=== PATIENT | female | born 1940 | race Caucasian/White ===

== ENCOUNTER → 2023-06-22 10:46 | Outpatient (CLI) | payer MEDICARE, SELFPAY ==
--- NOTE | ~2023-06-22 | MR_ITS ---
MRI of the right knee Clinical history: Meniscus tear Technique: Coronal proton density and proton density-weighted images, sagittal proton-density and T2 fat-sat images, and axial proton-density fat-saturated images were acquired. Findings: Anterior and posterior cruciate ligaments are intact. Medial collateral ligament and the la teral collateral ligament complex are intact. Popliteus tendon is intact. There is probable mild complex tearing of the body segment of the medial meniscus. There is complex t earing of the anterior horn and body of the lateral meniscus. There is diffuse grade IV chondromalacia of the lateral compartment. There is extensive high-grade ch ondral malacia the medial femoral condyle and medial aspect of the medial tibial plateau. There is gr evi IV chondromalacia the patellar apex. Tricompartmental osteophytes are present. There is extensive amorphous marrow edema in the lateral femoral condyle and lateral tibial plateau, presumably reactiv e. Extensor mechanism is intact. Small joint effusion is present. There is moderate to large complex Juaquin er's cyst. Impression: Complex tearing of the anterior horn and body lateral meniscus. Probable mildly complex tearing of the body segment of the medial meniscus. Moderate to advanced tricompartmental osteoarthritis, as detailed above. Reactive marrow edema in the lateral femoral condyle and lateral tibial plateau region, presumably re lated to underlying degenerative joint disease. No subchondral insufficiency fracture evident. Small joint effusion with moderate to large complex/septated Christopher's cyst. Reviewed, dictated and finalized at [facility]. Impression: Complex tearing of the anterior horn and body lateral meniscus. Probable mildly complex tearing of the body segment of the medial meniscus. Moderate to advanced tricompartmental osteoarthritis, as detailed above. Reactive marrow edema in the lateral femoral condyle and lateral tibial plateau region, presumably related to underlying degenerative joint disease. No subcho ndral insufficiency fracture evident. Small joint effusion with moderate to large complex/septated Christopher's cyst.
== END ==
PROVIDERS: PCP Family Medicine Sports Medicine; Visit Provider Family Medicine Sports Medicine
DX: S83.271A Complex tear of lateral meniscus, current injury, right knee, initial encounter (principal); X58.XXXA Exposure to other specified factors, initial encounter; M17.11 Unilateral primary osteoarthritis, right knee; M25.461 Effusion, right knee
CPT/HCPCS: 73721

== ENCOUNTER 2023-10-03 01:00 | Day surgery (SDC) | payer MEDICARE, SELFPAY ==
[2023-09-21 11:43] VITALS: BMI 24.5
--- NOTE | 2023-09-29 09:22 | SUR.PREOP ---
Patient called regarding upcoming procedure. Message left on patient's voicemail regarding appointment times.
[2023-10-03 09:55] VITALS: BP 100/76; PULSE 82; RESP 18; TEMP 36.6; O2SAT 100; BMI 24.8
[2023-10-03] MEDS: LACTATED RINGERS 1,000 ML 150 ML IV CONT (10:28)
--- NOTE | 2023-10-03 11:21 | PM.HPGS ---
History of Present Illness History of Present Illness Consent: Risks, benefits, and alternatives have been discussed and questions answered. Patient agrees to proceed with procedure. Chief complaint: dysphagia Narrative: Kellee Covarrubias is a 83 year old female with sensation of food sometimes having hard time to go down, never had egd Review of Systems Constitutional: Constitutional: Denies headache(s) and Denies weakness Eyes: Eyes: Denies blurry vision ENT: Reports Normal hearing present, Denies headache(s) and Denies neck pain Cardiovascular: Cardiovascular: Denies chest pain and Denies dyspnea Respiratory: Respiratory: Denies dyspnea Gastrointestinal: Gastrointestinal: Reports no additional gastrointestinal complaints Genitourinary: Genitourinary: Denies dysuria Musculoskeletal: Musculoskeletal: Denies neck pain Integumentary/Breasts: Skin/Breast: Denies dry skin Neurologic: Reports Normal hearing present, Denies headache(s) and Denies weakness Psychiatric: Psychiatric: Denies anxiety Endocrine: Endocrine: Denies change in body appearance Hematologic/Lymphatic: Hematologic/Lymphatic: Denies easy bleeding Allergic/Immunologic: Allergic/Immunologic: Denies urticaria PMFSH Past Medical History Medical History (Updated 10/03/23 @ 11:21 by Deangelo Christianson MD) Arthritis Colonoscopy planned 07/26/2019 09/03/2019- Removed polyp Dysphagia GERD (gastroesophageal reflux disease) Osteoporosis Family History Family History Father Hypertension Heart disease Mother Alzheimer disease Sibling Breast cancer Grandparent Hypertension Social History Social History Smoking status: Never smoker Alcohol intake: never Substance use: never Substance use type: does not use Living arrangements: with family Spiritual care concerns: No Meds Home Medications and Allergies Home Medications Medication Instructions Recorded Confirmed Type calcium citrate 315 mg 1 tablet PO BID 11/21/22 09/21/23 History calcium-vitamin D3 6.25 mcg (250 unit) tablet (Citracal + Vitamin D Maximum) cholecalciferol (vitamin D3) 25 25 mcg PO DAILY 11/21/22 09/21/23 History mcg (1,000 unit) capsule iwapatymsrzz-poeoizwa-bbfnhx tablet 1 tablet PO DAILY 11/21/22 09/21/23 History ginkgo biloba 40 mg tablet 40 mg PO DAILY 09/21/23 09/21/23 History Allergies Allergy/AdvReac Type Severity Reaction Status Date / Time Sulfa (Sulfonamide Allergy Hives Verified 09/21/23 11:43 Antibiotics) Vital Signs Vital Signs - 24 hr 10/03/23 09:55 Temperature 97.9 F Pulse Rate 82 Respiratory Rate 18 Blood Pressure 100/76 Pulse Oximetry 100 Oxygen Delivery Room Air Exam Const: General: comfortable and no acute distress HENMT: Face/Nose/Sinus: Normal nares present Eyes: General: appearance normal, both eyes and all related structures Neck: Neck: no JVD Resp: Auscultation: clear to auscultation bilaterally Cardio: Rate: regular rate Rhythm: regular rhythm GI: Inspection: non-distended GI Palp: Yes Soft to palpation Skin: General skin exam: normal color Neuro: General: gait normal Speech: normal speech Extrem: General: normal to inspection Psych: Mental Status: mental status grossly normal Assessment and Plan Assessment and plan (1) Dysphagia: Code(s): R13.10 - Dysphagia, unspecified Status: Acute Assessment and Plan: egd to assess
[2023-10-03 11:40] VITALS: BP 112/58; PULSE 75; RESP 18; O2SAT 100
[2023-10-03 11:50] VITALS: BP 126/57; PULSE 74; RESP 21; O2SAT 98
[2023-10-03 12:07] VITALS: BP 131/70; PULSE 75; RESP 16; O2SAT 98
== END 2023-10-03 12:17 | disposition home or self-care (01) ==
PROVIDERS: PCP Emergency Medicine; Visit Provider Internal Medicine Gastroenterology
PROC: 0DJ08ZZ Inspection of Upper Intestinal Tract, Via Natural or Artificial Opening Endoscopic (ICD-10-PCS; CPT 43235; principal; 2023-10-03 11:30)
DX: K22.2 Esophageal obstruction (principal); K44.9 Diaphragmatic hernia without obstruction or gangrene; K21.00 Gastro-esophageal reflux disease with esophagitis, without bleeding
CPT/HCPCS: 43249; 88305; C1726; J2704; J7120

== ENCOUNTER 2023-11-21 07:09 | Outpatient (CLI) | payer MEDICARE, SELFPAY ==
--- NOTE | ~2023-11-21 | MM_ITS ---
EXAMINATION: MM screening carmen BI w jarrod HISTORY: Screening mammogram TECHNIQUE: Craniocaudal and mediolateral oblique 3-D tomosynthesis images were obtained and synthetic 2-D images were generated. CAD analysis was submitted and interpreted. COMPARISON: No prior mammogram is available for comparison at this institution. BREAST PARENCHYMAL COMPOSITION: The breasts are heterogeneously dense, which may obscure small masses . FINDINGS: RIGHT BREAST: No suspicious mass, calcification, or architectural distortion are identified to sugges t malignancy. LEFT BREAST: There is architectural distortion in the posterior third of the upper outer quadrant of the breast. IMPRESSION: 1. Left breast architectural distortion. 2. Additional mammographic views and possible breast ultrasound are recommended. BI-RADS Category 0: Incomplete: Needs additional imaging evaluation. Reviewed, dictated and finalized at location A. NG ROOM SUPERVISOR IMPRESSION: 1. Left breast architectural distortion. 2. Additional mammographic views and possible breast ultrasound are recommended . BI-RADS Category 0: Incomplete: Needs additional imaging evaluation.
== END 2023-11-21 07:10 | disposition home or self-care (01) ==
PROVIDERS: PCP Emergency Medicine; Visit Provider Emergency Medicine
DX: Z12.31 Encounter for screening mammogram for malignant neoplasm of breast (principal); R92.8 Other abnormal and inconclusive findings on diagnostic imaging of breast
CPT/HCPCS: 77063; 77067

== ENCOUNTER 2024-09-28 08:27 | Emergency (ER) | payer MEDICARE, SELFPAY ==
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
[2024-09-28 08:31] VITALS: BP 143/74; PULSE 70; RESP 14; TEMP 36.6; O2SAT 97
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
--- OUTSIDE RECORDS SUMMARY | 2024-10-05 07:01 | XMS_ITS | Continuity of Care Document ---
Author Organization [facility] Address [address] [place] [phone] Care Team Providers Care Elevator Constructor Supervisor Name Role Phone Irwin Gonzalez Primary Care Physician Encounter [facility] Financial Number [id number] Date(s): 09/23/21 - 09/23/[address] [id number] Encounter Diagnosis Encounter for screening mammogram for malignant neoplasm of breast(Final) - Family history of malignant neoplasm of breast(Final) - Discharge Disposition: Home or Self Care Attending Physician: Irwin Gonzalez M.D. Referring Physician: Irwin Gonzalez M.D.
--- OUTSIDE RECORDS SUMMARY | 2024-10-05 07:01 | XMS_ITS | Continuity of Care Document ---
Author Organization [facility] Address [address] [place] [id number] Care Team Providers Care Music Assistant Name Role Phone Irwin Gonzalez Primary Care Physician [phone] Encounter [facility] Financial Number [id number] Date(s): 10/17/22 - 10/17/[address] [id number] Discharge Disposition: Home or Self Care Attending Physician: Irwin Gonzalez M.D. Referring Physician: Irwin Gonzalez M.D. Note * Event Display: [facility] * Event Display: [facility] * Event Display: [facility] * Event Display: [facility] Mamm Screen Bilat 2-D Authored Date: * Event Display: [facility] Mamm Screen Bilat 2-D Authored Date: [place], [place] [facility] Completed on: 10/17/2022 12:41 PM (CT) EXAMINATION: BILATERAL FULL FIELD DIGITAL SCREENING MAMMOGRAM WITH CAD AND DIGITAL BILATERAL BREAST TOMOSYNTHESIS HISTORY: Screening. Reported personal history of prior bilateral benign breast biopsies. Family history of breast cancer. COMPARISON: Comparison is made with prior mammograms dated 01/22/2021, 09/01/2020, 08/28/2019, 08/15/2018, 08/13/2018, and 07/20/2017. MAMMOGRAM TECHNIQUE: Full field digital craniocaudal and mediolateral oblique views of both breasts were obtained on a total of 10 images. Tomosynthesis (3-D) and reconstructed C-view (synthetic 2-D) images are included in this examination. Computer-aided detection was performed. BREAST PARENCHYMAL COMPOSITION: The breasts are heterogeneously dense, which may obscure small masses. MAMMOGRAM FINDINGS: No new suspicious abnormality is seen within either breast on mammogram. Breast vascular calcifications and other scattered calcifications are again noted. IMPRESSION: OVERALL FINAL ASSESSMENT: BI-RADS Category 2: Benign Finding. RECOMMENDATION: Annual screening mammography is recommended. Read by: Christina Barclay MD, FACR Reviewed and Electronically Signed by: Christina Barclay MD, FACR Patient Care team information Care Team Personnel Name: Irwin Gonzalez M.D. Member Role: Primary Care Physician Address: Address: [address] [place] [address] [place] Care Team Related Persons Name: SONI CARPENTER
== END 2024-09-28 10:28 | disposition home or self-care (01) ==
PROVIDERS: Emergency Provider Emergency Medicine; PCP Internal Medicine Gastroenterology
DX: S22.31XA Fracture of one rib, right side, initial encounter for closed fracture (principal); V89.2XXA Person injured in unspecified motor-vehicle accident, traffic, initial encounter; W22.10XA Striking against or struck by unspecified automobile airbag, initial encounter; M81.0 Age-related osteoporosis without current pathological fracture; K21.9 Gastro-esophageal reflux disease without esophagitis
CPT/HCPCS: 71046; 71100; 99283

== ENCOUNTER 2024-12-26 10:35 | Outpatient (CLI) | payer MEDICARE, SELFPAY ==
--- OUTSIDE RECORDS SUMMARY | 2024-12-26 11:24 | XMS_ITS | CONTINUITY OF CARE DOCUMENT ---
Author Name adriana wright Address Unknown Organization [facility] Address [address] [facility] [address] [place] [address] Phone [phone] Care Team Providers Care Swing Frame Grinder Operator Name Role Phone Seda LIU, nErique Unavailable [phone] Irwin Gonzalez MD Unavailable [phone] INSURANCE PROVIDERS Payer name Policy type / Coverage type [place] [employer] [place] [employer] Medicare [id number] SELF PAY
--- OUTSIDE RECORDS SUMMARY | 2024-12-26 11:24 | XMS_ITS | Data Portability ---
Author Organization [facility] Address [address] [place] [address] Care Team Providers Care Sanitation Supervisor Name Role Phone DREW BELLA Primary Care Provider Assessment No assessment recorded. Plan of Treatment Reminders Order Date Submit Date Provider Last Modified By Organization Details Last Modified Time Details Appointments None recorded. Lab None recorded. Referral dermatologi st referral 2023 JAKI Mota MD (Dermatology) , [address] , [facility], [place], [address], 4 04:19:06 Procedures None recorded. Surgeries None recorded. Imaging None recorded. Medication Orders quetiapine 25 mg tablet 2023 [id number], [address] , [place], [place], [id number], 4 12:53:46 Seroquel 25 mg tablet 2023 024 [facility][id number], [address] , [place], [place], [id number], 4 14:53:19 Patient TargetsNo targets recorded. Patient InstructionsNo instructions recorded. 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 Tool Room Lathe Operator Referral for D isorder of skin New onset appearance non pigmented facial nodules Referring Physician: Drew Bella, Internal Medicine, Encounter Date: 06/20/2024 Problems Name Problem SNOMED Code Status Onset Date Resolution Date Notes Provider Name and Address Organization Details Recorded Time Primary degenerative dementia of the Alzheimer type, senile onset 508536619 Active 2023 Drew Bella MD Attn: Tasneem [address] [facility], [place], [address], [facility] 4 14:59:54 Median fissure of lip 277020643 Active 2023 Drew Bella MD Attn: Tasne[address] [place], [address], [facility] 4 15:02:13 Agitation due to dementia 623618131 Active 2023 Drew Bella MD Attn: Tas[address] [place], [address], [facility] 4 14:50:40 Disorder of skin 86092480 Active 2023 Drew Bella MD Attn: Tasneem lucas,[address] [place], [address], [facility] 4 12:47:47 Problem Notes None recorded. Procedures Surgical History Date Name Laterality Status Provider Name and Address Organization Details Recorded Time Appendectomy completed Yoni Walker MA [facility] 06/20/2024 12:10:35 Imaging Results None recorded. Procedure Notes None recorded. Medical Equipment None Reported. Allergies No known drug allergies Medications Name Sig Start Date Stop Date Status Note LastModified by Organization Details LastModified Time quetiapine 25 mg tablet TAKE 2 TABLETS BY MOUTH EVERY DAY IN THE EVENING active Not Available Not Available No t Available doxycycline hyclate 100 mg capsule TAKE 1 CAPSULE BY MOUTH TWICE DAILY FOR 7 DAYS 01/29 completed Not Available Not Available Not Available donepezil 5 mg tablet 01/29 completed Not Available Not Available Not Available diphenoxyla te-atropine 2.5 mg-0.025 mg tablet 06/20 completed Not Available Not Available Not Available meloxicam 7.5 mg tablet TAKE 1 TABLET BY MOUTH EVERY DAY 01/29 completed Not Available Not Available Not Available triamcinolo ne acetonide 0.1 % dental paste APPLY 1 THIN LAYER TO THE AFFECTED AREA TWICE DAILY active Not Available Not Available No t Available omeprazole 20 mg capsule,del ayed release TAKE 1 CAPSULE BY MOUTH EVERY DAY BEFORE A MEAL 01/29 completed Not Available Not Available Not Available raloxifene 60 mg tablet TAKE 1 TABLET BY MOUTH EVERY DAY 01/29 completed Not Available Not Available Not Available methylpredn isolone 4 mg tablets in a dose pack FOLLOW PACKAGE DIRECTION S 01/29 completed Not Available Not Available Not Available memantine 10 mg tablet TAKE 1 TABLET BY MOUTH TWICE DAILY active Not Available Not Available No t Available memantine 5 mg tablet active Not Available Not Available No t Available Eliquis 5 mg tablet TAKE 2 TABLETS BY MOUTH EVERY 12 HOURS FOR 2 DAYS 01/29 completed Not Available Not Available Not Available Vitals Date Recorded Body weight Body mass index (BMI) Body height Oxygen saturation Oxygen saturation in Arterial blood by Pulse oximetry Body temperature Heart rate Systolic blood pressure Diastolic blood pressure Provider Name and Address Organization Details Last Updated DateTime 4 10893.5 2 g 25 kg/m2 160.02 cm 98 % 98 % 98 [degF] 87 /min 152 mm[Hg] 82 mm[Hg] Mariola Barrett MA [facility] 4 14:25:55 Date Recorded Body height Body mass index (BMI) Body weight Heart rate Oxygen saturation Oxygen saturation in Arterial blood by Pulse oximetry Systolic blood pressure Diastolic blood pressure Provider Name and Address Organization Details Last Updated DateTime 4 160.02 cm 25 kg/m2 00707.5 2 g 87 /min 98 % 98 % 154 mm[Hg] 78 mm[Hg] Mariola Barrett MA [facility] 4 12:47:34 Date Recorded Body height Body mass index (BMI) Body weight Heart rate Oxygen saturation Oxygen saturation in Arterial blood by Pulse oximetry Systolic blood pressure Diastolic blood pressure Provider Name and Address Organization Details Last Updated DateTime 4 160.02 cm 24.4 kg/m2 60601.6 7 g 82 /min 95 % 95 % 111 mm[Hg] 71 mm[Hg] Yoni Walker MA [facility] 4 12:18:20 Social History Question Answer Notes LastModified by Organizat ion Details LastModified Time Tobacco Smoking Status Never Smoker CARLIE Epstein, [facility] 01/30/2024 14:23:21 Do You Have An Advance Directive? Yes Information not available 06/20/2024 What Is Your Level Of Alcohol Consumption? None Information not available 06/20/2024 Are You Blind Or Do You Have Difficulty Seeing? No Information not available 06/20/2024 What Is Your Level Of Caffeine Consumption? Moderate Information not available 06/20/2024 Are You Currently Employed? No Retired Information not available 06/20/2024 Are You Deaf Or Do You Have Serious Difficulty Hearing? Yes Information not available 06/20/2024 What Type Of Diet Are You Following? REGULAR Information not available 06/20/2024 What Was The Date Of Your Most Recent Tobacco Screening? 06/20/2024 Information not available 06/20/2024 What Is Your Relationship Status? Information not available 06/20/2024 Do You Use Your Seat Belt Or Car Seat Routinely? Yes Information not available 06/20/2024 Do You Have Smoke And Carbon Monoxide Detectors In Your Home? Yes Information not available 06/20/2024 Do You Feel Stressed (tense, Restless, Nervous, Or Anxious, Or Unable To Sleep At Night)? GD2376-9 Information not available 06/20/2024 Do You Use Any Illicit Or Recreational Drugs? No Information not available 06/20/2024 Has Tobacco Cessation Counseling Been Provided? No Information not available 01/30/2024 Do You Or Have You Ever Used Any Other Forms Of Tobacco Or Nicotine? No Information not available 01/30/2024 Sex: Female Functional Status Question Answer Note LastModified by Organization D etails LastModified Time Are you able to care for yourself? Yes Information n ot available 06/20/2024 Mental Status None recorded. Family History Relationship Description Onset Age of this Age Resolved Age Notes LastModified by Organization Details LastModified Time Father No current problems or disability [email or web address] Not available 01/29 14:23:30 Mother No current problems or disability [email or web address] Not available 01/29 14:23:30 Medical History Condition Response Coronary Artery Disease N Other Y High Blood Pressure N Atrial Fibrillation N Kidney or Bladder Problems N Thyroid Problems N GI Problems N Depression N COPD N Blood Clots N Have you had a mammogram in the last yea r? N Skin Problems N Anemia N Heart Attack ([place]) N Anxiety Disorder N Diabetes N Muscle, Joint, or Bone Problems N Seizures/Epilepsy N Have you had a colonoscopy in the last 1 0 years? N Acid Reflux (GERD) N Cancer N Stroke N Asthma N Allergies N Have you had a PSA blood test in the las t year? N High Cholesterol N Hepatitis N Liver Disease N Headaches N Heart Failure N Osteoporosis N Gynecological HistoryNo gynecological history recorded. Obstetrics History GPAL:G 0 P 0 0 0 0 Immunizations Vaccine Type Date Status Note Provider Nam e and Address Organization Details Recorded Time Influenza, split virus, quadrivalent, preservative 8 completed [place], [place] [facility] 06/20/2024 12:07:51 Influenza, split virus, quadrivalent, preservative 5 completed Yoni Walker [place], [place] [facility] 06/20/2024 12:07:51 Influenza, high-dose, quadrivalent, PF 2 completed [place] [facility] 06/20/2024 12:07:51 Influenza, high-dose, quadrivalent, PF 1 [place] [facility] 06/20/2024 12:07:51 Influenza, high-dose, quadrivalent, PF 0 [place] [facility] 06/20/2024 12:07:51 Influenza, high-dose, quadrivalent, PF 3 [place] [facility] 06/20/2024 12:07:51 Influenza, high-dose, quadrivalent, PF 9 [place] [facility] 06/20/2024 12:07:51 COVID-19, mRNA, LNP-S, PF, 100 mcg/0.5mL dose or 50 mcg/0.25mL dose 2 [place] [facility] 06/20/2024 12:07:51 COVID-19, mRNA, LNP-S, PF, 30 mcg/0.3 mL dose 1 [place] [facility] 06/20/2024 12:07:51 COVID-19, mRNA, LNP-S, PF, 30 mcg/0.3 mL dose 1 [place] [facility] 06/20/2024 12:07:51 COVID-19, mRNA, LNP-S, PF, 30 mcg/0.3 mL dose 1 [place] [facility] 06/20/2024 12:07:51 COVID-19, mRNA, LNP-S, bivalent, PF, 30 mcg/0.3 mL dose 2 completed [place] [facility] 06/20/2024 12:07:51 COVID-19, mRNA, LNP-S, PF, maxim-sucrose, 30 mcg/0.3 mL 3 completed [place] [facility] 06/20/2024 12:07:51 pneumococcal polysaccharide PPV23 7 completed [place] [facility] 06/20/2024 12:07:51 Pneumococcal conjugate PCV 13 9 completed [place] [facility] 06/20/2024 12:07:51 Pneumococcal conjugate PCV 13 7 completed [place] [facility] 06/20/2024 12:07:51 zoster live 3 completed [place] [facility] 06/20/2024 12:07:51 Influenza, high-dose, trivalent, PF 7 completed [place] [facility] 06/20/2024 12:07:51 Influenza, adjuvanted, trivalent, PF 4 completed [place] [facility] 06/20/2024 12:16:40 RSV, bivalent, protein subunit RSVpreF, diluent reconstituted, 0.5 mL, PF 4 completed Yoni Walker [place] [facility] 06/20/2024 12:16:41 COVID-19, mRNA, LNP-S, PF, maxim-sucrose, 30 mcg/0.3 mL 4 completed Yoni Walker [place] [facility] 06/20/2024 12:16:41 Past Encounters Encounter ID Performer Location Encounter Start Date Encounter Closed Date Diagnosis/Indication Diagnosis SNOMED-CT Code Diagnosis ICD10 Code Diagnosis Note [id number] MD Merline Gentile (Adult Med) [address] [place] [address] 01/30/2024 13:42:07 01/31/2024 12:13:51 Primary degenerative dementia of the Alzheimer type, senile onset 231582383 G30.1 F/U neurologis t Median fissure of lip 40 5425725 K13.0 Continue dental cream [id number] MD Merline Gentile (Adult Med) [address] [place] [phone] 03/26/2024 12:18:25 03/28/2024 14:52:01 Agitation due to dementia 318061468 F03.590 [id number] MD Merline Gentile (Adult Med) [address] [place] [phone] 06/20/2024 11:51:02 06/21/2024 11:36:36 Disorder of skin 67735056 L98.9 Agitation due to dementia 640201298 F03.911 Will increase seroquel Health Concerns Section Related Observation LastModified by Organization Detai ls LastModified Time None Recorded Concern Status LastModified by Organization Details LastModified Time None Recorded Advance Directives Directive Y: Payers Encounter Date Sequence Insurance Name Policy Number Policy Berrios Covered Member ID Berrios Member ID Guarantor Name 01/30/2024 1 [place] Kellee K Rochester [id number] Kellee Rochester 03/26/2024 1 [place] Kellee K Rochester [id number] Kellee Rochester 03/26/2024 2 [employer] - PLAN F (MEDICARE SUPPLEMENT) Kellee Rochester [id number] Kellee Rochester 06/20/2024 1 [place] Kellee K Rochester [id number] Kellee Rochester 06/20/2024 2 [employer] - PLAN F (MEDICARE SUPPLEMENT) Kellee Rochester [id number] Kellee Rochester Notes Date Note Type Note Provider Name and Address Organization Details Recorded Time 01/30/2024 text/html Changing PCP Drew Bella MD Attn: [address] [facility], [place], [address], [facility] 01/30/2024 15:05:52 03/26/2024 text/html Here with junior Rosario because of stress that is apparent in the evening. This appears to be increasing in the past couple months. Aricept had been stopped because of side effect Drew Bella MD Attn: [address] [facility], [place], [address], [facility] 03/26/2024 14:53:56 06/20/2024 text/html Here with her . Her is concerned about her restlesness prior to going to bed. Her is also concerned about facial skin nodules Appetite appears good Drew Bella MD Attn: [address] [facility], [place], [address], [facility] 06/20/2024 12:58:50 OBGyn Episode No OBEpisode recorded.
--- OUTSIDE RECORDS SUMMARY | 2024-12-26 11:24 | XMS_ITS | Referral Summary ---
Author Organization [facility] Address [address] [place] [address] Care Team Providers Care Assembling Machine Operator Name Role Phone Bunny Aviles MD Primary Care Provider Encounters Date Type Department Care Team Description 10/24/2024 Telephone [facility] Neurology [address] [place] [phone] Jyoti Boss NP from Last 3 Months Allergies Active Allergy Reactions Criticality Noted Date Comments Sulfa (Sulfonamide Antibiotics) Hives Medium Medications multivitamin capsule Take 1 capsule by mouth daily Active calcium citrate/vitamin D3 (CITRACAL + D ORAL) Take by mouth. Activ e multivitamin with minerals tablet One A Day Vitamin QD 0 Active methylPREDNISol one (MEDROL DOSEPACK) 4 mg Dosepack FOLLOW PACKAGE DIRECTIONS 3 Active omeprazole (PriLOSEC) 20 mg capsule Take 1 capsule (20 mg total) by mouth daily 3 Active QUEtiapine (SEROquel) 25 mg tablet Take 2 tablets (50 mg total) by mouth nightly 60 tablet 2 4 Active memantine (NAMENDA) 10 mg tabletIndicatio ns:Moderate to Severe Alzheimer's Type Dementia Take 1 tablet (10 mg total) by mouth 2 (two) times a day 180 tablet 4 Active rivastigmine (EXELON) 4.6 mg/24 hourIndications :Mild to Moderate Alzheimer's Type Dementia Place 4.6 mg on the skin daily 30 patch 2 4 Active Active Problems Problem Noted Date Diagnosed Date Mild cognitive impairment 04/06/2023 History of colon polyps 03/26/2020 Overview (03/26/2020): Added automatically from request for surgery [id number] Polyp of cecum 07/29/2019 Overview (07/29/2019): Added automatically from request for surgery [id number] Pseudophakia of both eyes 07/17/2015 Overview (07/02/2018): 06/21/2018- EXTRACTION CATARACT - PHACOEMULSIFICATION AND LENS IMPLANT-right eye - Right 02/18/16- Phaco/IOL left eye (OS) LMT- Assessment & Plan (07/02/2018 11:53 AM CDT): Status-post EXTRACTION CATARACT - PHACOEMULSIFICATION AND LENS IMPLANT-right eye - Right 06/21/2018 Best corrected vision is much improved and the patient is pleased with results. The eye is well-healed with no evidence of infection. Plan discontinue ocuflox and taper prednisione TID x 1 week, BID x 1 week , then (QD) x 1week, then discontinue . Call if any inflammation increases or other symptoms worsen or occur. Glasses prescription was offered/given for use as needed. The patient was instructed to contact us if any new concerns occur with this eye. Pt happy with result. Will follow up with Dr. Ivory Assessment & Plan (06/22/2018 9:14 AM CDT): Assessment: POD1 status post (s/p) phaco/iol EXTRACTION CATARACT - PHACOEMULSIFICATION AND LENS IMPLANT-right eye - Right 06/21/[address] Torrez Doing well. Plan: Post op instructions and precautions reviewed. Use moxifloxacin and Prednisolone acetate 1% to operative eye QID Shield for sleep. Call with any decrease in vision or increase in pain. Assessment & Plan (05/16/2018 12:11 PM CDT): Patient complains of significant symptoms and problems with activities of daily living due to visually significant disease. R/B/A of cataract surgery discussed with the patient including bleeding, infection, chronic inflammation, need for glasses and/or second surgery, loss of vision, loss of eye, and even very rarely, . Patient's questions were answered and wants to proceed with cataract extraction with intraocular lens implant. Pamphlet given and plans were made to schedule this elective surgery. 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 Ivory for her care there. Not on eye drops. intraocular pressure (IOP) good today. Assessment & Plan (05/16/2018 12:10 PM CDT): H/o FHx OHTs. Not interested in drops. Follows with Dr. Ivory. Resolved Problems Problem Noted Date Diagnosed Date Resolved Date Combined forms of age-relate d cataract of right eye 05/17/2018 07/02/2018 Overview (05/17/2018): Added automatically from request for surgery [id number] Pseudophakia of left eye 05/16/2018 Assessment & Plan (05/16/2018 12:16 PM CDT): Min PCF left eye (OS). Not vis significant. Implants in good position. Vision stable Social History Tobacco Use Types Packs/Day Years Used Date Smoking Tobacco: Never Smokeless Tobacco: Never Alcohol Use Standard Drinks/Week Comments No 0 (1 standard drink = 0.6 oz pur e alcohol) Comments No Sex and Gender Information Value Date Recorded Sex Assigned at Not on file Legal Sex Female 6:55 PM OCCUPATIONAL THERAPY SPECIALIST Gender Identity Not on file Sexual Orientation Not on file Last Filed Vital Signs Vital Sign Reading Time Taken Comments Blood Pressure 120/70 09/23/2024 10:55 AM OCCUPATIONAL THERAPY SPECIALIST Pulse 82 09/23/2024 10:55 AM OCCUPATIONAL THERAPY SPECIALIST Temperature 36.7 C (98 F) 02/20/2024 11:16 AM CDT Respiratory Rate 19 09/23/2024 10:55 AM OCCUPATIONAL THERAPY SPECIALIST Oxygen Saturation 98% 09/23/2024 10:55 AM OCCUPATIONAL THERAPY SPECIALIST Inhaled Oxygen Concentration - - Weight 63.5 kg (140 lb) 09/23/2024 10:55 AM OCCUPATIONAL THERAPY SPECIALIST Height 157.5 cm (5' 2 ) 09/23/2024 10:55 AM OCCUPATIONAL THERAPY SPECIALIST Body Mass Index 25.61 09/23/2024 10:55 AM OCCUPATIONAL THERAPY SPECIALIST Plan of Treatment Not on file Medical Devices Implanted Type Area Agricultural Education Instructor Device Identifier Shelf Expiration Date Model / Serial / Lot [employer] [id number] Tecnis Protec Tecnis Itec 6mm 13mm 1 Piece Anterior Aspheric - [id number] - [id number] Implanted:Qty: 1 on 06/21/2018 by Mary Torrez MD at [facility] Right: Eye [employer] 09/28/2020 [id number] / [id number] / Insurance MEDICARE [facility] MEDICARE MEDICARE Advance Directives For more information, please contact: [phone] * Full Code (Latest Code Status on File) Date Activated Date Inactivated Comments 04/29/2020 8:42 AM 04/29/2020 2:33 PM * Full Code Date Activated Date Inactivated Comments 09/03/2019 9:40 AM 09/03/2019 5:00 PM Care Teams Assembling Machine Operator Relationship Specialty Start Date End Date Bunny [place] [address] PCP - General Family Medicine 10/30/23
--- OUTSIDE RECORDS SUMMARY | 2024-12-26 11:24 | XMS_ITS | Continuity of Care Document ---
Author Organization [facility] Address [address] [place] [address] [address] [place] [address] Phone Care Team Providers Care Salon Stylist Name Role Phone Unavailable Unavailable Unavailable Allergies, [...] Provider Providers Copied on Encounter [facility], [address] [place], [place] [address], [place], [place], [id number], [place] tel:[phone] [facility] blurry vision at near (chief complaint) borderline glaucoma (chief complaint) Open angle with borderline findings, low risk, bilateralPrese nce of intraocular lensVitreous degeneration, bilateral 8 No Information Family History Family Member Type Diagnosis Age At Onset No Information Payers Payer name Insurance type Covered libertarian ID Authoriza tion(s) MEDIC[place] MB [id number] [employer] CI [id number] Social History Type Description Quantity Date Captured Comments Alcohol Use Details Unknown Caffeine Use Details Unknown Tobacco Use Status No Information Smoking Status No Information Sex Female Chief Complaint And Reason For Visit From encounter dated '08/09/2018 10:50'. blurry vision at near (chief complaint). Description: [...] Suspects but never had to be treated. Plan Of Treatment Date Type Action Status No Information History Of Present Illness Encounter [...] Suspects but never had to be treated. Instructions Date Instruction Additional Infor mation Impression/Plan [...]
--- OUTSIDE RECORDS SUMMARY | 2024-12-26 11:24 | XMS_ITS | Clinical Summary ---
Author Organization [facility] Address [address] [place] [address] Care Team Providers Care Databases Software Consultant Name Role Phone Drew Bella MD Primary Care Provider [phone] Social History Tobacco Use Types Packs/Day Years Used Date Smoking Tobacco: Never Assessed Comments Unknown Sex and Gender Information Value Date Recorded Sex Assigned at Not on file Legal Sex Female 9:36 AM CDT Gender Identity Female 03/07/2024 9:02 AM CDT Sexual Orientation Straight 03/07/2024 9: 02 AM CDT Plan of Treatment Health Maintenance Due Date Last Done Comments DTaP, Tdap and Td Vaccines ( 1 - Tdap) 1961 Zoster Vaccines (1 of 2) 1992 Annual Medicare Wellness Visit 2007 Dexa Scan (General) 2007 Pneumococcal Vaccine: 65+ Ye ars (1 of 1 - PCV) 2007 RSV Immunization or 60+ Years (1 - 1-dose 75+ series) 2017 COVID-19 Vaccine ( - 2023-2 5 season) 2024 Influenza Adult (#1) 2024 PHQ-2 (Physician [place]) 10/09/2024 Meningococcal B Vaccine Aged Out No l onger eligible based on patient's age to complete this topic Meningococcal Vaccine Aged Out No isabella francine eligible based on patient's age to complete this topic RSV Immunizations Under 20 Months Aged Out No longer eligible based on patient's age to complete this topic Insurance MEDICARE Care Teams Databases Software Consultant Relationship Specialty Start Date End Date Drew Bella MD [address] [place] [address] PCP - General INTERNAL MEDICINE 03/07/24
--- OUTSIDE RECORDS SUMMARY | 2024-12-26 11:24 | XMS_ITS | Encounter Summary ---
Author Organization [facility] Address [address] [place] [address] Care Team Providers Care Para Operator Name Role Phone Irwin Gonzalez MD Primary Care Provider [phone] Encounter Details Date Type Department Care Team (Late st Contact Info) Description 07/25/2006 Outpatient Historical [facility] Aniket Case MD NO ADDRESS ON FILE Dysphagia (Primary Dx) Social History Tobacco Use Types Packs/Day Years Used Date Smoking Tobacco: Never Assessed Comments Unknown Sex and Gender Information Value Date Recorded Sex Assigned at Not on file Legal Sex Female 5:23 AM DEV MANAGER Gender Identity Not on file Sexual Orientation Not on file documented as of this encounter Plan of Treatment Not on file documented as of this encounter Visit Diagnoses Diagnosis Dysphagia- Primary documented in this encounter Care Teams Para Operator Relationship Specialty Start Date End Date Irwin Gonzalez MD [address] [address] PCP - General Internal Medicine 08/02/21 documented as of this encounter
--- OUTSIDE RECORDS SUMMARY | 2024-12-26 11:24 | XMS_ITS | Continuity of Care Document ---
Author Organization [facility] Address [address] [facility] [place] [address] Phone Care Team Providers Care Vp Analytics Name Role Phone Bunny Aviles MD Unavailable Unavailable Allergies, Adverse Reactions, Alerts Substance Reaction Status Criticality No Known Allergies Active No Inform ation Medications Medication Instructions Dosage Effective Dates (start - stop) Status Comments Lomotil 2.5 mg-0.025 mg tablet take 1 Tablet by oral route 2 times every day as needed 2.5 MG - Active Procedures Procedure Date OFFICE/OUTPATIENT VISIT, EST Medicare Addendum PPPS, subseq visit OFFICE/OUTPATIENT VISIT, [facility] Advance Directives Directive Yes / No Effective Date File Name No Information Encounters Encounter Description Practice Location Reason(s) For Visit Diagnoses Date Provider Providers Copied on Encounter OFFICE/OUTPA TIENT VISIT, [facility], [address], [id number], tel:[phone] [facility] HLP (chief complaint) glucose1 (chief complaint) GERD1 (chief complaint) memory1 (chief complaint) diarrhea1 (chief complaint) OsteoporosisOther dysphagiaMemory lossLower abdominal painDiarrheaMixed hyperlipidemiaHyper glycemia 4 Stefan Hollis. [address] [facility] [place], [id number] , [place]. tel:[phone] OFFICE/OUTPA TIENT VISIT, [facility], [address] [place], [id number], tel:[phone] [facility] physical (chief complaint) Encounter for general adult medical exam w abnormal findingsOther dysphagiaOsteoporos isPain in right kneeMemory loss 3 Stefan Hollis. [address], [place], [place], [address] , [place]. tel:[phone] Family History Family Member Type Diagnosis Age At Onset Mother Problem 90s natural cause Father Problem 80s old age related Sister Problem ALS 76 Mother Problem alzheimer Payers Payer name Insurance type Covered democrat ID Authoriza tion(s) No Information Social History Type Description Quantity Date Captured Comments Alcohol Use Details No Caffeine Use Details Unknown Tobacco Use Status Current non-smoker Smoking Status Never smoker Sex Female Vital Signs Date / Time: Height Weight BMI Pulse Rate Blood Pressure Temperature Respiratory Rate Body Surface Area Head Circumference BMI percentile Pulse Ox Inhaled Ox 10:45 AM 63.00 in 140.40 lbs 24.8 7 kg/m eter (2) 80 /min 130/70 mm[Hg] 98.1 F 16 /min Chief Complaint And Reason For Visit From encounter dated '12/21/2023 10:45'. HLP (chief complaint). Description: Pt has HLP Pt is working on diet glucose1 (chief complaint). Description: Pt has borderline high glucose pt denies any polyuria, polydipsia GERD1 (chief complaint). Description: Pt has esophageal ring. Pt underwent dilation recently and she has HH as well Pt never tried omeprazole .She did some research and she does not want to take omeprazole Pt states that her dysphagia resolved after dilation . memory1 (chief complaint). Description: Pt has dementia, and she sees neurologist and she was started aricept 3 weeks ago which caused severe non bloody diarrhea Pt stopped aricept two days ago afterdiscussing with neurology. Pt states that she still has multiple episodes of non-bloody diarrhea. Pt c/o pain left lower quadrant as well during last 2-3 days. pt denies any nausea, vomiting, fever, appetite loss, etc Pt has been trying imodium but has not helped. Pt denies any nausea, vomiting. Pthas decent appetite and she is drinking water ok diarrhea1 (chief complaint). Description: Pt has been having persistent non- bloody diarrhea x 3 days. Pt thinks that it may be due to aricept so she stopped aricept after discussing with neurology Ptstill has persistent non-bloody diarrhea x 8-9 times per day Pt c/o left lower abdominal pain as well. Pt denies any nausea, vomiting, appetite loss ,fever Pt denies any dizziness. Plan Of Treatment Date Type Action Status Referral Ordered: CT ABDOMEN&PELVIS W/CONTRAST ordered Referral Ordered: OPERATIVE UPPER GI ENDOSCOPY ordered Referral Ordered: DXA BONE DENSITY, AXIAL ordered History Of Present Illness Encounter Date Complaint History Of Prese nt Illness diarrhea1 Pt has been havi ng persistent non-bloody diarrhea x 3 days. Pt thinks that it may be due to aricept so she stopped aricept after discussing with neurology Pt still has persistent non-bloody diarrhea x 8-9 times per day Pt c/o left lower abdominal pain as well. Pt denies any nausea, vomiting, appetite loss ,fever Pt denies any dizziness. memory1 Pt has dementia, and she sees neurologist and she was started aricept 3 weeks ago which caused severe non bloody diarrhea Pt stopped aricept two days ago after discussing with neurology. Pt states that she still has multiple episodes of non-bloody diarrhea. Pt c/o pain left lower quadrant as well during last 2-3 days. pt denies any nausea, vomiting, fever, appetite loss, etc Pt has been trying imodium but has not helped. Pt denies any nausea, vomiting. Pt has decent appetite and she is drinking water ok GERD1 Pt has esophagea l ring. Pt underwent dilation recently and she has HH as well Pt never tried omeprazole .She did some research and she does not want to take omeprazole Pt states that her dysphagia resolved after dilation . glucose1 Pt has borderlin e high glucose pt denies any polyuria, polydipsia HLP Pt has HLP Pt is working on diet physical Pt needs annual physical. Pt has osteoporosis and she has been on raloxifene until several months ago. Pt was going on long road trip and she stopped raloxifene on her due to afraid of getting clot. Pt takes calcium and vitamin D .Pt has not seen her previous doctor for multiple years. Pt sees memory specialist for early alzheimer disease. Pt has some short term memory loss. Pt denies any mental status change. Pt c/o cough and feeling something stuck in her throat and midchest area after ingestion of food for long time. Pt denies any GERD Pt denies any early satiety, nausea, vomiting, diarrhea, blood in stool. Pt denies any weight loss Pt denies any sore throat. Pt has chronic right knee pain due to meniscus issue. Pt c/o right knee pain persistently. Pt sees ortho and she had injection of steroid recently but is not working. Pt denies any swelling and redness of right knee Pt denies any calf pain. Pt denies any injury Instructions Date Instruction Additional Infor mation No Information Assessments Type Assessment Date assessment Osteoporosis assessment Other dysphagia assessment Memory loss assessment Lower abdominal pain assessment Diarrhea assessment Mixed hyperlipidemia assessment Hyperglycemia Mental Status Date Cognitive Assessment Orientation - [place] ed to time, place, person, situation.
--- OUTSIDE RECORDS SUMMARY | 2024-12-26 11:24 | XMS_ITS | Clinical Summary ---
Author Organization [facility] Address [address] [place] [address] Phone Care Team Providers Care Pepper Picker Name Role Phone Irwin Gonzalez MD Primary Care Provider [phone] Allergies Active Allergy Reactions Criticality Noted Date Comments Sulfa Dyne Hives High 02/09/2012 Medications raloxifene (EVISTA) 60 mg Oral tablet Take 60 mg by mouth daily. Active ascorbic acid (VITAMIN C) 500 mg Oral TbSR Take 1 Tab by mouth daily. Active vitamin E 400 unit Oral capsule Take 400 Units by mouth daily. Active calcium citrate-vitamin d3 (CITRACAL D MAX) 315 mg-6.25 mcg (250 unit) Tablet Citracal + Vitamin D Maximum 315 mg calcium-6.25 mcg (250 unit) tablet Take by oral route. Active Multivitamin Capsule Take 1 Capsule by mouth daily. Active Active Problems Problem Noted Date Diagnosed Date Scoliosis 08/02/2021 Cervical spondylosis without myelopathy 08/02/20 21 Osteopenia 02/09/2012 Hx of abnormal cervical Pap smear 02/09/2012 Overview (02/09/2012): 15-20 years ago Hx of breast biopsy 02/09/2012 Mixed incontinence urge and stress (male)(female ) 02/09/2012 Family History Medical History Relation Name Comments Healthy Daughter Heart Disease Father Kidney Disease Father Kidney failur e due to CHF Alzheimer's Disease Mother Anemia Mother High Cholesterol Mother No longer t akes medication Hypertension Mother No longer takes medication Macular Degen Mother Breast Cancer Sister 1 In remission, doing well Healthy Sister 1 Asthma Sister 2 Unknown Sister 2 Healthy Son Cancer Neg Hx Endometrial Colon Cancer Neg Hx Ovarian Cancer Neg Hx Relation Name Status Comments Daughter Alive Father (Age 85) CHF Mother Alive Sister 1 Alive Sister 2 Alive Son Alive Social History Tobacco Use Types Packs/Day Years Used Date Smoking Tobacco: Never Smokeless Tobacco: Never Alcohol Use Standard Drinks/Week Comments No 0 (1 standard drink = 0.6 oz pur e alcohol) A couple of times a year Comments No Sex and Gender Information Value Date Recorded Sex Assigned at Not on file 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91 08/02/2021 1:13 PM CDT Plan of Treatment Health Maintenance Due Date Last Done Comments DTAP/TDAP/TD VACCINES (1 - Tdap) 1961 ZOSTER VACCINE (1 of 2) 1992 RSV VACCINE (60+ or ) (1 - 1-dose 75+ series) 2017 PNEUMOCOCCAL VACCINE 50+ YEA RS (2 of 2 - PPSV23) 06/19/2020 06/19/2019 INFLUENZA VACCINE (#1) 2024 , 07/09/2020, 07/22/2019, Additional history exists OSTEOPOROSIS SCREENING Completed 02/10/2012 COLORECTAL SCREENING Discontinued 03/28/2012, 02/09/20 05 Colorectal Cancer Screening Discontinued FIT-DNA Q 3 years Discontinued FIT/FOBT Q 1 year Discontinued Flex Sig/CT Colonography Q 5 years Discontinued Procedures Procedure Name Priority Date/Time Associated Diagnosis Comments XR DEXA BONE DENSITY AXIAL 1 OR MORE SITES Routine 02/10/2012 ASYMPTOMATIC POSTMENOPAUSAL STATUS (AGE-RELATED) (NATURAL) Osteoporosis screening from Last 3 Months or Most Recently Relevant to Health Maintenance Results * (ABNORMAL) XR DEXA BONE DENSITY AXIAL 1 OR MORE SITES (02/10/2012) T-SCORE [facility]EMUR (LEFT) [facility] T-SCORE FEMUR (RIGHT) [facility] T-SCORE FEMUR -1.2(A) >=-0.99 [facility] T-SCORE SPINE -0.6 >=-0.99 [facility] T-SCORE HIP (LEFT) [facility] T-SCORE HIP (RIGHT) [facility] T-SCORE HIP >=-0.99 [facility] Anatomical Region Laterality Modality Other us Pamela Perea MD DIAGNOSTIC IMAG ING ORDERABLES Final Result from Last 3 Months or Most Recently Relevant to Health Maintenance Insurance MEDICARE PART A AND B [employer] MEDICARE SUPP AESSI Advance Directives For more information, please contact: [phone] * Full Code (Latest Code Status on File) Date Activated Date Inactivated Comments 03/28/2012 12:27 PM 03/28/2012 5:49 PM Care Teams Pepper Picker Relationship Specialty Start Date End Date Irwin Gonzalez MD [address] [facility] [address] [place] [address] PCP - General Internal Medicine 08/02/21
--- OUTSIDE RECORDS SUMMARY | 2024-12-26 11:24 | XMS_ITS | Encounter Summary ---
Author Organization [facility] Address 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
--- OUTSIDE RECORDS SUMMARY | 2024-12-26 11:24 | XMS_ITS | Clinical Summary ---
Author Organization [facility] Address [address] [place] [address] Care Team Providers Care Mumps Developer Name Role Phone Bunny Aviles MD Primary Care Provider Allergies Active Allergy Reactions Criticality Noted Date [...] (03/26/2020): Added automatically from request for surgery [id number] Polyp of cecum 07/29/2019 Overview (07/29/2019): Added automatically from request for surgery [id number] Pseudophakia of both eyes 07/17/2015 Overview (07/02/2018): [...] (05/17/2018): Added automatically from request for surgery [id number] Pseudophakia of left eye 05/16/2018 Assessment & Plan (05/16/2018 12:16 PM CDT): Min PCF left eye (OS). Not vis significant. Implants in good position. Vision stable Encounters Date Type Department Care Team Description 10/24/2024 Telephone [facility] Neurology [address] [place] [phone] Jyoti Boss NP from Last 3 Months Surgical History Surgery Date Site/Laterality Comments CATARACT EXTRACTION Bilateral DILATION AND CURETTAGE OF UTERUS 10/09/1968 - 10/08/1969 COLONOSCOPY BREAST BIOPSY biopsy Medical History Medical History Date Comments Osteopenia Hx of adenomatous colonic polyps Family History Medical History Relation Name Comments Memory loss Maternal Grandmother Alzheimer's disease Mother Relation Name Status Comments Maternal Grandmother Mother Social History Tobacco Use Types Packs/Day Years Used Date Smoking Tobacco: Never Smokeless Tobacco: Never Alcohol Use Standard Drinks/Week Comments No 0 (1 standard drink = 0.6 oz pur e alcohol) Comments No Sex and Gender Information Value Date Recorded Sex Assigned at Not on file 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 Gender Identity Not on file Sexual Orientation Not on file Obstetrics History Last Filed Vital Signs Vital Sign Reading Time Taken Comments Blood Pressure 120/70 09/23/2024 10:55 AM AUTOMOTIVE 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 Pulse 82 09/23/2024 10:55 AM AUTOMOTIVE 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 Temperature 36.7 C (98 F) 02/20/2024 11:16 AM CDT Respiratory Rate 19 09/23/2024 10:55 AM AUTOMOTIVE 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 Oxygen Saturation 98% 09/23/2024 10:55 AM AUTOMOTIVE 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 Inhaled Oxygen Concentration - - Weight 63.5 kg (140 lb) 09/23/2024 10:55 AM AUTOMOTIVE 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 Height 157.5 cm (5' 2 ) 09/23/2024 10:55 AM AUTOMOTIVE 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 Body Mass Index 25.61 09/23/2024 10:55 AM 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 Plan of Treatment Health Maintenance Due Date Last Done Comments Depression Screening 1942 DTaP/Tdap/Td Vaccine (1 - Tdap) 1953 Hepatitis B Screening 1960 Well Visit 65+ 2007 Zoster Vaccine (2 of 3) 04/09/2013 02/12/2013 Osteoporosis Screening-Bone Density Scan 02/09/2014 02/10/2012, 02/10/2012 Fall Risk Assessment 04/29/2021 04/29/2020 Covid-19 Vaccine (2023-11 5 season) 2024 06/20/2022, 01/10/2022, 07/13/2021, Additional history exists Pneumococcal vaccine 65+ Completed 019, 07/26/2017, 07/24/2017 Influenza Vaccine Completed 06/13/2024, , 07/07/2021, Additional history exists Medical Devices Implanted Type Area Glue Sprayer Device Identifier Shelf Expiration Date Model / Serial / Lot [employer] [id number] Tecnis Protec Tecnis Itec 6mm 13mm 1 Piece Anterior Aspheric - [id number] - [id number] Implanted:Qty: 1 on 06/21/2018 by Mary Torrez MD at [facility] Right: Eye [employer] 09/28/2020 [id number] / [id number] / Insurance MEDICARE [facility] MEDICARE Advance Directives For more information, please contact: [phone] * Full Code (Latest Code Status on File) Date Activated Date Inactivated Comments 04/29/2020 8:42 AM 04/29/2020 2:33 PM * Full Code Date Activated Date Inactivated Comments 09/03/2019 9:40 AM 09/03/2019 5:00 PM Care Teams Mumps Developer Relationship Specialty Start Date End Date Bunny Aviles MD [address] [place] [address] PCP - General Family Medicine 10/30/23
[2024-12-26 11:48] LABS: Add Urine Microscopic? YES; Appearance Urine Clear (Clear); Bacteria Urine None Seen /hpf; Bilirubin Urine Negative (Negative); Blood Urine Negative (Negative); Color Urine Yellow (Yellow); Glucose Urine UA Negative (Negative); Ketones Urine Negative (Negative); Leukocyte Esterase Ur 1+ LEU/UL (Negative); Mucus Urine Present /lpf; Need Manual Microscopic Reviewed; Nitrate Urine Negative (Negative); Non Pathogenic Casts 0-2; Protein Urine Negative (Negative); Specific Grav Ur 1.015 (1.001-1.035); Squamous Epithelial Cell Urine Occasional /hpf (Few); Urobilinogen Urine 0.2 mg/dL (<2.0); WBC Urine 0-5 /hpf (0-3); pH Urine 7.5 (5.0-9.0)
== END 2024-12-26 10:36 | disposition home or self-care (01) ==
LOC: ANHLAB 10:37
PROVIDERS: PCP Internal Medicine; Visit Provider Internal Medicine
DX: R35.0 Frequency of micturition (principal); R41.89 Other symptoms and signs involving cognitive functions and awareness
CPT/HCPCS: 81001; 87086

== ENCOUNTER 2025-01-04 21:02 | Emergency (ER) | payer MEDICARE, SELFPAY ==
--- NOTE | ~2025-01-04 | XR_ITS ---
HISTORY: KNEE PAIN X YEARS, NO KNOWN INJURY COMPARISON: None TECHNIQUE: 3 views of the left knee were performed FINDINGS: No acute or subacute fracture, erosion, lytic or sclerotic lesion. Medial tibiofemoral joint space narrowing is identified. No suprapatellar joint effusion is identified. The infrapatellar joint space is clear. Well-corticated osseous density projecting along the medial collateral ligament, possibly the source of patient's discomfort. IMPRESSION: Degenerative disease without acute fracture. Reviewed, dictated and finalized at location A.
--- OUTSIDE RECORDS SUMMARY | 2025-01-04 21:05 | XMS_ITS | Data Portability ---
Author Organization [facility] Address [address] [place] [address] Care Team Providers Care Butt Presser Name Role Phone DREW BELLA Primary Care Provider Assessment No assessment recorded. Plan of Treatment Reminders Order Date Submit Date Provider Last Modified By Organization Details Last Modified Time Details Appointments None recorded. Lab None recorded. Referral dermatologi st referral 2023 JAKI Mota MD (Dermatology) , [address] [facility] , [facility], [place], [address], 4 04:19:06 Procedures None recorded. Surgeries None recorded. Imaging None recorded. Medication Orders quetiapine 25 mg tablet 2023 [id number], [address] , [place], [place], [id number], 4 12:53:46 Seroquel 25 mg tablet 2023 024 [facility] [address]37, [address] , [place], [place], [phone], 4 14:53:19 Patient TargetsNo targets recorded. Patient InstructionsNo instructions recorded. 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 Referral for D isorder of skin New onset appearance non pigmented facial nodules Referring Physician: Drew Bella, Internal Medicine, Encounter Date: 06/20/2024 Problems Name Problem SNOMED Code Status Onset Date Resolution Date Notes Provider Name and Address Organization Details Recorded Time Primary degenerative dementia of the Alzheimer type, senile onset 303820650 Active 2023 Drew Bella MD Attn: Tasneem [address]as[address] [facility], [place], [address], [facility] 4 14:59:54 Median fissure of lip 953193743 Active 2023 Drew Bella MD Attn: Tas[address] [place], [address], [facility] 4 15:02:13 Agitation due to dementia 979522773 Active 2023 Drew Bella MD Attn: [address] [place], [address], [facility] 4 14:50:40 Disorder of skin 14141404 Active 2023 Drew Bella MD Attn: Tasneem lucas,[address] [place], [address], [facility] 4 12:47:47 Problem Notes None recorded. Procedures Surgical History Date Name Laterality Status Provider Name and Address Organization Details Recorded Time Appendectomy completed Yoni Walker MA [facility] 06/20/2024 12:10:35 Imaging Results None recorded. Procedure [...] Address Organization Details Last Updated DateTime 4 32400.5 2 g 25 kg/m2 160.02 cm 98 % 98 % 98 [degF] 87 /min 152 mm[Hg] 82 mm[Hg] Mariola Barrett MA [facility] 4 14:25:55 Date Recorded Body height Body mass index (BMI) Body weight Heart rate Oxygen saturation Oxygen saturation in Arterial blood by Pulse oximetry Systolic blood pressure Diastolic blood pressure Provider Name and Address Organization Details Last Updated DateTime 4 160.02 cm 25 kg/m2 12264.5 2 g 87 /min 98 % 98 % 154 mm[Hg] 78 mm[Hg] Mariola Barrett MA [facility] 4 12:47:34 Date Recorded Body height Body mass index (BMI) Body weight Heart rate Oxygen saturation Oxygen saturation in Arterial blood by Pulse oximetry Systolic blood pressure Diastolic blood pressure Provider Name and Address Organization Details Last Updated DateTime 4 160.02 cm 24.4 kg/m2 00335.6 7 g 82 /min 95 % 95 % 111 mm[Hg] 71 mm[Hg] Yoni Walker MA [facility] 4 12:18:20 Social History Question Answer Notes [...] Anxious, Or Unable To Sleep At Night)? [id number] Information not available 06/20/2024 Do You Use [...] Response Coronary Artery Disease N Other Y Atrial Fibrillation N High Blood Pressure N Depression N COPD N Blood Clots N Anxiety Disorder N Muscle, Joint, or Bone Problems N Acid Reflux (GERD) N Cancer N Stroke N High Cholesterol N Liver Disease N Headaches N Kidney or Bladder Problems N Thyroid Problems N GI Problems N Have you had a mammogram in the last yea r? N Skin Problems N Anemia N Heart Attack ([place]) N Diabetes N Seizures/Epilepsy N Have you had a colonoscopy in the last 1 0 years? N Asthma N Allergies N Have you had a PSA blood test in the las t year? N Hepatitis N Heart Failure N Osteoporosis N Gynecological [...] 12:07:51 Influenza, high-dose, quadrivalent, PF 2 completed Yoni Walker MA null, [place] - [...] PF, 30 mcg/0.3 mL dose 1 completed CALRIE Leahy, [place] - [facility] 06/20/2024 12:07:51 COVID-19, [...] SNOMED-CT Code Diagnosis ICD10 Code Diagnosis Note [id number] MD Merline Gentile (Adult Med) [address] [place] [phone] 01/30/2024 13:42:07 01/31/2024 12:13:51 Primary degenerative dementia of the Alzheimer type, senile onset 393134172 G30.1 F/U neurologis t Median fissure of lip 40 3177515 K13.0 Continue dental cream [id number] MD Merline Gentile (Adult Med) [address] [place] [address] 03/26/2024 12:18:25 03/28/2024 14:52:01 Agitation due to dementia 007214355 F03.095 [id number] MD Merline Gentile (Adult Med) [address] [place] [phone] 06/20/2024 11:51:02 06/21/2024 11:36:36 Disorder of skin 44117207 L98.9 Agitation due to dementia 022219953 F03.911 Will increase seroquel Health Concerns Section Related Observation LastModified by Organization Detai ls LastModified Time None Recorded Concern Status LastModified by Organization Details LastModified Time None Recorded Advance Directives Directive Y: Payers Encounter Date Sequence Insurance Name Policy Number Policy Berrios Covered Member ID Berrios Member ID Guarantor Name 01/30/2024 1 [place] Kellee K Sheldon [id number] Kellee Sheldon 03/26/2024 1 [place] Kellee K Sheldon [id number] Kellee Sheldon 03/26/2024 2 [employer] - PLAN F (MEDICARE SUPPLEMENT) Kellee Sheldon [id number] Kellee Sheldon 06/20/2024 1 [place] Kellee K Sheldon [id number] Kellee Sheldon 06/20/2024 2 [facility] [employer] - PLAN F (MEDICARE SUPPLEMENT) Kellee Sheldon [id number] Kellee Sheldon Notes Date Note Type Note Provider Name and Address Organization Details Recorded Time 01/30/2024 text/html Changing PCP Drew Bella MD Attn: [address]ing[address] [facility], [place], [address], [facility] 01/30/2024 15:05:52 03/26/2024 text/html Here with junior Rosario because of stress that is apparent in the evening. This appears to be increasing in the past couple months. Aricept had been stopped because of side effect Drew Bella MD Attn: [address] [facility], [place], [address], [facility] 03/26/2024 14:53:56 06/20/2024 text/html Here with her . Her is concerned about her restlesness prior to going to bed. Her is also concerned about facial skin nodules Appetite appears good Drew Bella MD Attn: [address]ing[address] [facility], [place], [address], [facility] 06/20/2024 12:58:50 OBGyn Episode No OBEpisode recorded.
--- OUTSIDE RECORDS SUMMARY | 2025-01-04 21:05 | XMS_ITS | Continuity of Care Document ---
Author Organization [facility] Address [address] [facility] [place] [address] Phone Care Team Providers Care Solderer Production Line Name Role Phone Bunny Aviles MD Unavailable [...] Medicare Addendum PPPS, subseq visit OFFICE/OUTPATIENT VISIT, [facility] Advance Directives Directive Yes / No Effective Date File Name No Information Encounters Encounter Description Practice Location Reason(s) For Visit Diagnoses Date Provider Providers Copied on Encounter OFFICE/OUTPA TIENT VISIT, [facility], [address] [place], [id number], tel:[phone] [facility], [place], [facility] HLP (chief complaint) glucose1 (chief complaint) GERD1 (chief complaint) memory1 (chief complaint) diarrhea1 (chief complaint) OsteoporosisOther dysphagiaMemory lossLower abdominal painDiarrheaMixed hyperlipidemiaHyper glycemia 4 Stefan Hollis. [address] [employer] [facility] [[email or web address] [place], [place], [id number] , [place]. tel:[phone] OFFICE/OUTPA TIENT VISIT, [facility], [address], [id number], tel:[phone] [facility] physical (chief complaint) Encounter for general adult medical exam w abnormal findingsOther dysphagiaOsteoporos isPain in right kneeMemory loss 3 Stefan Hollis. [address], [place], [place], [id number] , [place]. tel:[phone] Family History Family Member Type Diagnosis Age At Onset Mother Problem 90s natural cause Father Problem 80s old age related Sister Problem ALS 76 Mother Problem alzheimer Payers Payer name Insurance type Covered alliance party ID Authoriza tion(s) No Information Social History [...] Mental Status Date Cognitive Assessment Orientation - [place] ed to time, place, person, situation.
--- OUTSIDE RECORDS SUMMARY | 2025-01-04 21:05 | XMS_ITS | Clinical Summary ---
Author Organization [facility] Address [address] [place] [address] Care Team Providers Care Before And After School Daycare Worker Name Role Phone Bunny Aviles MD Primary Care Provider [phone] Allergies Active Allergy Reactions Criticality Noted Date [...] (03/26/2020): Added automatically from request for surgery [id number] Polyp of cecum 07/29/2019 Overview (07/29/2019): Added automatically from request for surgery [id number] Pseudophakia of both eyes 07/17/2015 Overview (07/02/2018): [...] (05/17/2018): Added automatically from request for surgery [id number] Pseudophakia of left eye 05/16/2018 Assessment & Plan (05/16/2018 12:16 PM CDT): Min PCF left eye (OS). Not vis significant. Implants in good position. Vision stable Encounters Date Type Department Care Team Description 10/24/[address] [facility] Medical Group Neurology [address] [place] [phone] Jyoti Boss NP from Last 3 [...] on file Legal Sex Female 6:55 PM DOMESTIC TECHNICIAN Gender Identity Not on file Sexual Orientation Not on file Obstetrics History Last Filed Vital Signs Vital Sign Reading Time Taken Comments Blood Pressure 120/70 09/23/2024 10:55 AM DOMESTIC TECHNICIAN Pulse 82 09/23/2024 10:55 AM DOMESTIC TECHNICIAN Temperature 36.7 C (98 F) 02/20/2024 11:16 AM CDT Respiratory Rate 19 09/23/2024 10:55 AM DOMESTIC TECHNICIAN Oxygen Saturation 98% 09/23/2024 10:55 AM DOMESTIC TECHNICIAN Inhaled Oxygen Concentration - - Weight 63.5 kg (140 lb) 09/23/2024 10:55 AM DOMESTIC TECHNICIAN Height 157.5 cm (5' 2 ) 09/23/2024 10:55 AM DOMESTIC TECHNICIAN Body Mass Index 25.61 09/23/2024 10:55 AM DOMESTIC TECHNICIAN Plan of Treatment Health Maintenance Due Date [...] history exists Medical Devices Implanted Type Area Vp Respiratory Device Identifier Shelf Expiration Date Model / Serial / Lot [place] [employer] [id number] Tecnis Protec Tecnis Itec 6mm 13mm 1 Piece Anterior Aspheric - [id number] - [id number] Implanted:Qty: 1 on 06/21/2018 by Mary Torrez MD at [facility] Right: Eye [place] [employer] 09/28/2020 [id number] / [id number] / Insurance [facility] MEDICARE MEDICARE MEDICARE Advance Directives For more information, please contact: [phone] * Full Code (Latest Code Status on File) Date Activated Date Inactivated Comments 04/29/2020 8:42 AM 04/29/2020 2:33 PM * Full Code Date Activated Date Inactivated Comments 09/03/2019 9:40 AM 09/03/2019 5:00 PM Care Teams Before And After School Daycare Worker Relationship Specialty Start Date End Date Bunny Aviles MD [address] [place] [address] PCP - General Family Medicine 10/30/23
--- OUTSIDE RECORDS SUMMARY | 2025-01-04 21:05 | XMS_ITS | Clinical Summary ---
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
--- OUTSIDE RECORDS SUMMARY | 2025-01-04 21:05 | XMS_ITS | Encounter Summary ---
Author Organization [facility] Address [address] [place] [address] Care Team Providers Care Telephone Lineman Name Role Phone Irwin Gonzalez MD Primary Care Provider Encounter Details Date Type Department Care Team (Late st Contact Info) Description 07/25/2006 Outpatient Historical [facility] Aniket Case MD NO ADDRESS ON FILE Dysphagia (Primary Dx) Social History Tobacco Use Types Packs/Day Years Used Date Smoking Tobacco: Never Assessed Comments Unknown Sex and Gender Information Value Date Recorded Sex Assigned at Not on file Legal Sex Female 5:23 AM ALTERATIONS MANAGER Gender Identity Not on file Sexual Orientation Not on file documented as of this encounter Plan of Treatment Not on file documented as of this encounter Visit Diagnoses Diagnosis Dysphagia- Primary documented in this encounter Care Teams Telephone Lineman Relationship Specialty Start Date End Date Irwin Gonzalez MD [address] [address] PCP - General Internal Medicine 08/02/21 documented as of this encounter
--- OUTSIDE RECORDS SUMMARY | 2025-01-04 21:05 | XMS_ITS | Encounter Summary ---
Author Organization [facility] Address [address] [place] [address] Care Team Providers Care Veterinary Pathologist Name Role Phone Irwin Gonzalez MD Primary Care Provider [phone] Encounter Details Date Type Department Care Team (Late st Contact Info) Description 07/01/2005 Outpatient Historical [facility] Davon Hackett MD NO ADDRESS ON FILE SCREENING MAL NEOP-COLON (Primary Dx) Social History Tobacco Use Types Packs/Day Years Used Date Smoking Tobacco: Never Assessed Comments Unknown Sex and Gender Information Value Date Recorded Sex Assigned at Not on file Legal Sex Female 5:23 AM SCHOOL SECRETARY Gender Identity Not on file Sexual Orientation Not on file documented as of this encounter Plan of Treatment Not on file documented as of this encounter Visit Diagnoses Diagnosis Special screening for malignant neoplasms, colon- Primary documented in this encounter Care Teams Veterinary Pathologist Relationship Specialty Start Date End Date Irwin Gonzalez MD [address] [phone] PCP - General Internal Medicine 08/02/21 documented as of this encounter
--- OUTSIDE RECORDS SUMMARY | 2025-01-04 21:05 | XMS_ITS | Continuity of Care Document ---
Author Organization [facility] Address [address] [place] [address] [address] [place] [address] Phone Care Team Providers Care Pension Manager Name Role Phone Unavailable Unavailable Unavailable Allergies, [...] Provider Providers Copied on Encounter [facility], [address] [place], [place] [address], [place], [place], [address], [place] tel:[phone] OPH CONSULT [facility] blurry vision at near (chief complaint) borderline glaucoma (chief complaint) Open angle with borderline findings, low risk, bilateralPrese nce of intraocular lensVitreous degeneration, bilateral 8 No Information Family History Family Member Type Diagnosis Age At Onset No Information Payers Payer name Insurance type Covered green party ID Authoriza tion(s) [place]ICARE OF [place] MB [id number] [employer] [place] [employer] CI [id number] Social History Type Description Quantity Date [...]
--- OUTSIDE RECORDS SUMMARY | 2025-01-04 21:05 | XMS_ITS | Referral Summary ---
Author Organization [facility] Address [address] [place] [address] Care Team Providers Care Mechanical Assembly Name Role Phone Bunny Aviles MD Primary Care Provider Encounters Date Type Department Care Team Description 10/24/2024 Telephone [facility] Medical Group Neurology [address] [place] [phone] Jyoti Boss NP from Last 3 [...] (03/26/2020): Added automatically from request for surgery [id number] Polyp of cecum 07/29/2019 Overview (07/29/2019): Added automatically from request for surgery [id number] Pseudophakia of both eyes 07/17/2015 Overview (07/02/2018): [...] (05/17/2018): Added automatically from request for surgery [id number] Pseudophakia of left eye 05/16/2018 Assessment & [...] on file Legal Sex Female 6:55 PM TOOL CLERK Gender Identity Not on file Sexual Orientation Not on file Last Filed Vital Signs Vital Sign Reading Time Taken Comments Blood Pressure 120/70 09/23/2024 10:55 AM TOOL CLERK Pulse 82 09/23/2024 10:55 AM TOOL CLERK Temperature 36.7 C (98 F) 02/20/2024 11:16 AM CDT Respiratory Rate 19 09/23/2024 10:55 AM TOOL CLERK Oxygen Saturation 98% 09/23/2024 10:55 AM TOOL CLERK Inhaled Oxygen Concentration - - Weight 63.5 kg (140 lb) 09/23/2024 10:55 AM TOOL CLERK Height 157.5 cm (5' 2 ) 09/23/2024 10:55 AM TOOL CLERK Body Mass Index 25.61 09/23/2024 10:55 AM TOOL CLERK Plan of Treatment Not on file Medical Devices Implanted Type Area Brooch And Bracelet Maker Device Identifier Shelf Expiration Date Model / Serial / Lot [place] [employer] [id number] Tecnis Protec Tecnis Itec 6mm 13mm 1 Piece Anterior Aspheric - [id number] - [id number] Implanted:Qty: 1 on 06/21/2018 by Mary Torrez MD at [facility] Right: Eye [employer] 09/28/2020 [id number] / [id number] / Insurance [facility] MEDICARE MEDICARE MEDICARE Advance Directives For more information, please contact: [phone] * Full Code (Latest Code Status on File) Date Activated Date Inactivated Comments 04/29/2020 8:42 AM 04/29/2020 2:33 PM * Full Code Date Activated Date Inactivated Comments 09/03/2019 9:40 AM 09/03/2019 5:00 PM Care Teams Mechanical Assembly Relationship Specialty Start Date End Date Bunny Aviles [place] [address] PCP - General Family Medicine 10/30/23
--- OUTSIDE RECORDS SUMMARY | 2025-01-04 21:05 | XMS_ITS | Clinical Summary ---
Author Organization [facility] Address [address] [place] [address] Care Team Providers Care Comber Fixer Name Role Phone Drew Bella MD Primary Care Provider [phone] Social History Tobacco Use Types Packs/Day Years [...] 2024 Influenza Adult (#1) 2024 PHQ-2 (Physician [place]) 10/09/2024 Meningococcal B Vaccine Aged Out No l onger eligible based on patient's age to complete this topic Meningococcal Vaccine Aged Out No isabella francine eligible based on patient's age to complete this topic RSV Immunizations Under 20 Months Aged Out No longer eligible based on patient's age to complete this topic Insurance MEDICARE Care Teams Comber Fixer Relationship Specialty Start Date End Date Drew Bella MD [address] [place] [address] PCP - General INTERNAL MEDICINE 03/07/24
--- OUTSIDE RECORDS SUMMARY | 2025-01-04 21:05 | XMS_ITS | CONTINUITY OF CARE DOCUMENT ---
Author Name adriana wright Address Unknown Organization [facility] Address [address] [facility] [address] [place] [address] Phone [phone] Care Team Providers Care Thermit Welding Machine Operator Name Role Phone Seda LIU, Enrique Unavailable [phone] Irwin Gonzalez MD Unavailable INSURANCE PROVIDERS Payer name Policy type / Coverage type [place] red republican ID [place] MEDICARE Medicare [id number] SELF PAY
[2025-01-04 21:28] VITALS: BP 142/78; PULSE 77; RESP 16; TEMP 36.3; O2SAT 99
[2025-01-05 01:18] VITALS: O2SAT 98
[2025-01-05 01:19] VITALS: BP 137/90; O2SAT 100
[2025-01-05 01:30] VITALS: O2SAT 100
[2025-01-05 01:32] VITALS: BP 145/63; O2SAT 96
[2025-01-05 02:17] VITALS: BP 105/77; PULSE 78; RESP 17; O2SAT 97
--- OUTSIDE RECORDS SUMMARY | 2025-01-05 02:31 | XMS_ITS | Encounter Summary ---
Author Organization [employer] Address [address] [place] [address] Care Team Providers Care Bait Packer Name Role Phone Irwin Gonzalez MD Primary [...] on file Legal Sex Female 5:23 AM PHYSICAL INTEGRATION PRACTITIONER Gender Identity Not on file Sexual Orientation Not on file documented as of this encounter Plan of Treatment Not on file documented as of this encounter Visit Diagnoses Diagnosis Dysphagia- Primary documented in this encounter Care Teams Bait Packer Relationship Specialty Start Date End Date Irwin Gonzalez MD [address] [address] PCP - General Internal Medicine 08/02/21 documented as of this encounter
--- OUTSIDE RECORDS SUMMARY | 2025-01-05 02:31 | XMS_ITS | Encounter Summary ---
Author Organization [facility] Address [address] [place] [address] Care Team Providers Care Treasury Consultant Name Role Phone Irwin Gonzalez MD Primary Care Provider [phone] Encounter Details Date Type Department Care Team (Late st Contact Info) Description 07/01/2005 Outpatient Historical [facility] Davon Hackett MD NO ADDRESS ON FILE SCREENING MAL NEOP-COLON (Primary Dx) Social History Tobacco Use Types Packs/Day Years Used Date Smoking Tobacco: Never Assessed Comments Unknown Sex and Gender Information Value Date Recorded Sex Assigned at Not on file Legal Sex Female 5:23 AM WHITE HAT HACKER Gender Identity Not on file Sexual Orientation Not on file documented as of this encounter Plan of Treatment Not on file documented as of this encounter Visit Diagnoses Diagnosis Special screening for malignant neoplasms, colon- Primary documented in this encounter Care Teams Treasury Consultant Relationship Specialty Start Date End Date Irwin Gonzalez MD [address] [phone] PCP - General Internal Medicine 08/02/21 documented as of this encounter
--- OUTSIDE RECORDS SUMMARY | 2025-01-05 02:31 | XMS_ITS | Referral Summary ---
Author Organization [facility] Address [address] [place] [address] Care Team Providers Care Inventory Analyst Name Role Phone Bunny Aviles MD Primary Care Provider [phone] Encounters Date Type Department Care Team Description 10/24/2024 Telephone [facility] Medical Group Neurology [address] [place] [phone] Jyoti Boss NP from Last 3 [...] (03/26/2020): Added automatically from request for surgery [id number] Polyp of cecum 07/29/2019 Overview (07/29/2019): Added automatically from request for surgery [id number] Pseudophakia of both eyes 07/17/2015 Overview (07/02/2018): [...] (05/17/2018): Added automatically from request for surgery [id number] Pseudophakia of left eye 05/16/2018 Assessment & [...] on file Legal Sex Female 6:55 PM DEVELOPMENT SPEC Gender Identity Not on file Sexual Orientation Not on file Last Filed Vital Signs Vital Sign Reading Time Taken Comments Blood Pressure 120/70 09/23/2024 10:55 AM DEVELOPMENT SPEC Pulse 82 09/23/2024 10:55 AM DEVELOPMENT SPEC Temperature 36.7 C (98 F) 02/20/2024 11:16 AM CDT Respiratory Rate 19 09/23/2024 10:55 AM DEVELOPMENT SPEC Oxygen Saturation 98% 09/23/2024 10:55 AM DEVELOPMENT SPEC Inhaled Oxygen Concentration - - Weight 63.5 kg (140 lb) 09/23/2024 10:55 AM DEVELOPMENT SPEC Height 157.5 cm (5' 2 ) 09/23/2024 10:55 AM DEVELOPMENT SPEC Body Mass Index 25.61 09/23/2024 10:55 AM DEVELOPMENT SPEC Plan of Treatment Not on file Medical Devices Implanted Type Area Honeycomb Decapper Device Identifier Shelf Expiration Date Model / Serial / Lot [place] [employer] [id number] Tecnis Protec Tecnis Itec 6mm 13mm 1 Piece Anterior Aspheric - [id number] - [id number] Implanted:Qty: 1 on 06/21/2018 by Mary Torrez MD at [facility] Right: Eye [employer] 09/28/2020 [id number] / [id number] / Insurance [facility] MEDICARE [facility] Address: [address] [address] [place] [address] MEDICARE MEDICARE Advance Directives For more information, please contact: [phone] * Full Code (Latest Code Status on File) Date Activated Date Inactivated Comments 04/29/2020 8:42 AM 04/29/2020 2:33 PM * Full Code Date Activated Date Inactivated Comments 09/03/2019 9:40 AM 09/03/2019 5:00 PM Care Teams Inventory Analyst Relationship Specialty Start Date End Date Bunny [place] [address] PCP - General Family Medicine 10/30/23
--- OUTSIDE RECORDS SUMMARY | 2025-01-05 02:31 | XMS_ITS | Clinical Summary ---
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
--- OUTSIDE RECORDS SUMMARY | 2025-01-05 02:31 | XMS_ITS | Clinical Summary ---
Author Organization [facility] Address [address] [place] [address] Care Team Providers Care Rn Icu Name Role Phone Bunny Aviles MD Primary [...] (03/26/2020): Added automatically from request for surgery [id number] Polyp of cecum 07/29/2019 Overview (07/29/2019): Added automatically from request for surgery [id number] Pseudophakia of both eyes 07/17/2015 Overview (07/02/2018): [...] (05/17/2018): Added automatically from request for surgery [id number] Pseudophakia of left eye 05/16/2018 Assessment & Plan (05/16/2018 12:16 PM CDT): Min PCF left eye (OS). Not vis significant. Implants in good position. Vision stable Encounters Date Type Department Care Team Description 10/24/2024 Telephone [facility] Medical Group Neurology [address] [place] [phone] Jyoti Boss NP from Last 3 [...] on file Legal Sex Female 6:55 PM SLITTER OPERATOR Gender Identity Not on file Sexual Orientation Not on file Obstetrics History Last Filed Vital Signs Vital Sign Reading Time Taken Comments Blood Pressure 120/70 09/23/2024 10:55 AM SLITTER OPERATOR Pulse 82 09/23/2024 10:55 AM SLITTER OPERATOR Temperature 36.7 C (98 F) 02/20/2024 11:16 AM CDT Respiratory Rate 19 09/23/2024 10:55 AM SLITTER OPERATOR Oxygen Saturation 98% 09/23/2024 10:55 AM SLITTER OPERATOR Inhaled Oxygen Concentration - - Weight 63.5 kg (140 lb) 09/23/2024 10:55 AM SLITTER OPERATOR Height 157.5 cm (5' 2 ) 09/23/2024 10:55 AM SLITTER OPERATOR Body Mass Index 25.61 09/23/2024 10:55 AM SLITTER OPERATOR Plan of Treatment Health Maintenance Due Date [...] history exists Medical Devices Implanted Type Area Roller Coaster Engineer Device Identifier Shelf Expiration Date Model / Serial / Lot [place] [employer] [id number] Tecnis Protec Tecnis Itec 6mm 13mm 1 Piece Anterior Aspheric - [id number] - [id number] Implanted:Qty: 1 on 06/21/2018 by Mary Torrez MD at [facility] Right: Eye [place] [employer] 09/28/2020 [id number] / [id number] / Insurance [facility] MEDICARE MEDICARE MEDICARE Advance Directives For more information, please contact: [phone] * Full Code (Latest Code Status on File) Date Activated Date Inactivated Comments 04/29/2020 8:42 AM 04/29/2020 2:33 PM * Full Code Date Activated Date Inactivated Comments 09/03/2019 9:40 AM 09/03/2019 5:00 PM Care Teams Rn Icu Relationship Specialty Start Date End Date Bunny Aviles MD [address] [place] [address] PCP - General Family Medicine 10/30/23
--- OUTSIDE RECORDS SUMMARY | 2025-01-05 02:31 | XMS_ITS | Clinical Summary ---
Author Organization [facility] Address [address] [place] [address] Care Team Providers Care Elevator Serviceman Name Role Phone Drew Bella MD Primary Care Provider [phone] Social History Tobacco Use Types Packs/Day Years [...] 2024 Influenza Adult (#1) 2024 PHQ-2 (Physician [place]) 10/09/2024 Meningococcal B Vaccine Aged Out No l onger eligible based on patient's age to complete this topic Meningococcal Vaccine Aged Out No isabella francine eligible based on patient's age to complete this topic RSV Immunizations Under 20 Months Aged Out No longer eligible based on patient's age to complete this topic Insurance MEDICARE Care Teams Elevator Serviceman Relationship Specialty Start Date End Date Drew Bella MD [address] [place] [address] PCP - General INTERNAL MEDICINE 03/07/24
--- OUTSIDE RECORDS SUMMARY | 2025-01-05 02:31 | XMS_ITS | CONTINUITY OF CARE DOCUMENT ---
Author Name adriana wright Address Unknown Organization [facility] Address [address] [facility] [address] [place] [address] Phone [phone] Care Team Providers Care Manager Outpatient Name Role Phone Seda LIU, Enrique Unavailable Irwin Gonzalez MD Unavailable [phone] INSURANCE PROVIDERS Payer name Policy type / Coverage type [place] red alliance party ID [place] MEDICARE Medicare [id number] SELF PAY
--- NOTE | 2025-01-05 02:51 | ED_ITS ---
HPI - General Adult General Chief complaint: Extremity Problem,Nontraumatic Stated complaint: Left knee pain swelling- unable to walk tonight Time Seen by Provider: 01/05/25 02:17 History of Present Illness HPI narrative: This is an 84-year-old female presenting with chief complaint of left knee pain. Patient has been having intermittent pain in her left knee for the last 4 years. Has required injections in the past. He had been doing well until last several days when she started having increased pain. No trauma. No fevers redness or swelling. She has been taking Tylenol with minimal relief. Related Data Home Medications ?Medication ?Instructions ?Recorded ?Confirmed ?Last Taken ?Type memantine 10 mg tablet (Namenda) 10 mg PO BID 10/30/24 10/30/24 Unknown History quetiapine BYMOUTH 10/30/24 10/30/24 Unknown History Allergies Allergy/AdvReac Type Severity Reaction Status Date / Time Sulfa (Sulfonamide Allergy Hives Verified 01/05/25 02:41 Antibiotics) [facility] Past Medical History Medical History Schatzki's ring Hiatal hernia Dementia DJD (degenerative joint disease) of knee Encounter to establish care On superintendent container terminal drug therapy BMI 25.0-25.9,adult Dysphagia Colonoscopy planned 07/26/2019 09/03/2019- Removed polyp Osteoporosis GERD (gastroesophageal reflux disease) Arthritis Family History Family History Father Hypertension Heart disease Mother Alzheimer disease Sibling Breast cancer Grandparent Hypertension Social History Social History Smoking status: Never smoker Second hand tobacco smoke exposure: No Alcohol intake: never Substance use: never Substance use type: does not use Do You Feel Safe in your Home?: Yes Lack of Transportation: No Lack of Food: Never True Current Housing: I Have Housing Concerned About Future Housing: No Difficulty Paying Gas/Electric Bills: No Difficulty Paying for Meds: No Currently Unemployed: No Difficulty w/ Childcare or Family Care: No Living arrangements: with family Gender identity (if verbalized by the patient): Female Spiritual care concerns: No Exam Narrative: APPEARANCE: No apparent distress. Head: atraumatic. EYES: EOMI, NOSE: Atraumatic NECK: Trachea midline RESPIRATORY: No increased rate of breathing CARDIOVASCULAR: RRR, ABDOMINAL: Non-distended MUSCULOSKELETAl: Focal exam of the left knee showed no redness, warmth swelling or skin changes. Patient is able to bear weight. Compartments of the leg are soft. Pulses intact NEURO: Alert. Moving 4/4 extremities SKIN:: Warm, dry. Normal color PSYCHIATRIC: Normal affect Course Vital Signs Vital signs: Vital Signs Temperature 97.3 F L 01/04/25 21: Pulse Rate 77 01/04/25 21:28 Respiratory Rate 16 01/04/25 21:28 Blood Pressure 142/78 H 01/04/25 21:28 Pulse Oximetry 99 01/04/25 21:28 Oxygen Delivery Room Air 01/04/25 21: Temperature 97.3 F L 01/04/25 21: Pulse Rate 78 01/05/25 02:17 Respiratory Rate 17 01/05/25 02:17 Blood Pressure 105/77 01/05/25 02:17 Pulse Oximetry 97 01/05/25 02:17 Oxygen Delivery Room Air 01/04/25 21:28 Medical Decision Making MDM Narrative Medical decision making narrative: -Course: 84-year-old female history of degenerative joint disease in the pain presenting with knee pain. Physical exam is unremarkable. No trauma. No signs of infection. Patient's pain will be treated to be discharged follow-up with her orthopedic surgeon. -DDX includes but is not limited to: Degenerative joint disease, septic joint, DVT Vital Signs Vital Signs: Vital Signs Temperature 97.3 F L 01/04/25 21:28 Pulse Rate 77 01/04/25 21:28 Respiratory Rate 16 01/04/25 21:28 Blood Pressure 142/78 H 01/04/25 21:28 Pulse Oximetry 99 01/04/25 21:28 Oxygen Delivery Room Air 01/04/25 21:28 Temperature 97.3 F L 01/04/25 21:28 Pulse Rate 78 01/05/25 02:17 Respiratory Rate 17 01/05/25 02:17 Blood Pressure 105/77 01/05/25 02:17 Pulse Oximetry 97 01/05/25 02:17 Oxygen Delivery Room Air 01/04/25 21:28 Discharge Plan Discharge Clinical Impression: Acute knee pain Patient Disposition: Home, Self-Care Condition: Stable Instructions: Antibiotic Form, Knee Pain (ED) Additional Instructions: Kellee was seen in the emergency department for knee pain. Please use Tylenol for pain. You can use oxycodone for breakthrough pain. Please call the orthopedic surgeon to arrange for further management. Return to ED at any time if you develop worsening pain,fevers or any new symptoms. Patient Language: Maltese Prescriptions: New oxycodone 5 mg tablet 5 mg PO Q4H PRN (Reason: pain) Qty: 14 0RF No Action memantine [Namenda] 10 mg tablet 10 mg PO BID quetiapine BYMOUTH famotidine 40 mg tablet See Rx Instructions .ROUTE .COMPLEX Qty: 90 0RF Dose Instruction: TAKE 1 TABLET BY MOUTH DAILY Rx Instructions: TAKE 1 TABLET BY MOUTH DAILY ciprofloxacin HCl 250 mg tablet 250 mg PO Q12H Qty: 10 0RF Follow-up/Referrals: Humberto Ledesma MD [Primary Care Provider] -
[2025-01-05] MEDS: KETOROLAC 30 MG/ML VIAL (*BKC) IM (03:07)
[2025-01-05] MEDS: HYDROcodone/acetaminophen (*CRX) 5-325 MG TABLET 1 TAB PO (03:07)
== END 2025-01-05 03:25 | disposition home or self-care (01) ==
PROVIDERS: Emergency Provider Emergency Medicine; PCP Internal Medicine
DX: M25.562 Pain in left knee (principal); F03.90 Unspecified dementia, unspecified severity, without behavioral disturbance, psychotic disturbance, mood disturbance, and anxiety; M17.12 Unilateral primary osteoarthritis, left knee; M81.0 Age-related osteoporosis without current pathological fracture; K21.9 Gastro-esophageal reflux disease without esophagitis; K44.9 Diaphragmatic hernia without obstruction or gangrene
CPT/HCPCS: 73562; 96372; 99283; A9270; J1885

== ENCOUNTER 2025-02-12 13:35 | Outpatient (CLI) | payer MEDICARE, SELFPAY ==
--- NOTE | ~2025-02-12 | XR_ITS ---
MODIFIED ESOPHAGRAM HISTORY: Dysphagia. TECHNIQUE: Modified barium esophagram was performed on 02/12/2025. I administered fluoroscopy and perfo rmed the exam with speech pathologist. Patient was seated for lateral fluoroscopic imaging for inges tion of thin liquids, pudding, solids and quantified amounts, followed by thin liquids in uncontrolle d amounts. This was recorded on tape. A single fluoroscopic spot image was also recorded. The DAP for this procedure was 0.894 Gycm2. The amount of fluoroscopy time used during this procedure was 1.9 mi nutes. FINDINGS: Oral stage: Adequate function. Pharyngeal stage: Adequate function. No laryngeal penetration or aspiration. Cervical/esophageal stage: There is esophageal/pharyngeal backflow into the piriform sinuses. IMPRESSION: Occasional esophageal/pharyngeal backflow into the piriform sinuses. Otherwise unremarkab le study with no laryngeal penetration or aspiration. Please correlate with speech pathologist findi ngs and specific feeding recommendations. Reviewed, dictated and finalized at location A. IMPRESSION: Occasional esophageal/pharyngeal backflow into the piriform sinuses . Otherwise unremarkable study with no laryngeal penetration or aspiration. Pl ease correlate with speech pathologist findings and specific feeding recommenda tions.
--- OUTSIDE RECORDS SUMMARY | 2025-02-12 13:45 | XMS_ITS | Encounter Summary ---
Author Organization [employer] Address 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
--- OUTSIDE RECORDS SUMMARY | 2025-02-12 13:45 | XMS_ITS | Clinical Summary ---
Author Organization [facility] Address [address] [place] [address] Care Team Providers Care Senior Tax Analyst Name Role Phone Bunny Aviles MD Primary Care Provider Allergies Active Allergy Reactions Criticality Noted Date Comments Sulfa (Sulfonamide Antibiotics) Hives Medium Medications multivitamin capsule Take 1 capsule by mouth daily Active calcium citrate/vitami n D3 (CITRACAL + D ORAL) Take by mouth. Activ e multivitamin with minerals tablet One A Day Vitamin QD 05/06/20 20 Active methylPREDNISo lone (MEDROL DOSEPACK) 4 mg Dosepack FOLLOW PACKAGE DIRECTIONS 06/26/20 23 Active omeprazole (PriLOSEC) 20 mg capsule Take 1 capsule (20 mg total) by mouth daily 09/07/20 23 Active QUEtiapine (SEROquel) 25 mg tablet Take 2 tablets (50 mg total) by mouth nightly 60 tablet 2 09/23/20 24 Active rivastigmine (EXELON) 4.6 mg/24 hourIndication s:Mild to Moderate Alzheimer's Type Dementia Place 4.6 mg on the skin daily 30 patch 2 09/23/20 24 Active memantine (NAMENDA) 10 mg tablet TAKE 1 TABLET BY MOUTH TWICE DAILY 180 tablet 01/29/20 25 Active memantine (NAMENDA) 10 mg tabletIndicati ons:Moderate to Severe Alzheimer's Type Dementia Take 1 tablet (10 mg total) by mouth 2 (two) times a day 180 tablet 09/23/20 24 025 Discontinued Active Problems Problem Noted Date Diagnosed Date Mild cognitive impairment 04/06/2023 History of colon polyps 03/26/2020 Overview (03/26/2020): Added automatically from request for surgery [id number] Polyp of cecum 07/29/2019 Overview (07/29/2019): Added automatically from request for surgery [id number] Pseudophakia of both eyes 07/17/2015 Overview (07/02/2018): [...] (05/17/2018): Added automatically from request for surgery [id number] Pseudophakia of left eye 05/16/2018 Assessment & Plan (05/16/2018 12:16 PM CDT): Min PCF left eye (OS). Not vis significant. Implants in good position. Vision stable Encounters Date Type Department Care Team Description 01/15/2025 Telephone [facility] First Floor [address] [place] [address] Suyapa Saini, RMA Cancel from Last 3 Months Surgical History Surgery [...] on file Legal Sex Female 6:55 PM ACCOUNT ADVISOR Gender Identity Not on file Sexual Orientation Not on file Obstetrics History Last Filed Vital Signs Vital Sign Reading Time Taken Comments Blood Pressure 120/70 09/23/2024 10:55 AM ACCOUNT ADVISOR Pulse 82 09/23/2024 10:55 AM ACCOUNT ADVISOR Temperature 36.7 C (98 F) 02/20/2024 11:16 AM CDT Respiratory Rate 19 09/23/2024 10:55 AM ACCOUNT ADVISOR Oxygen Saturation 98% 09/23/2024 10:55 AM ACCOUNT ADVISOR Inhaled Oxygen Concentration - - Weight 63.5 kg (140 lb) 09/23/2024 10:55 AM ACCOUNT ADVISOR Height 157.5 cm (5' 2 ) 09/23/2024 10:55 AM ACCOUNT ADVISOR Body Mass Index 25.61 09/23/2024 10:55 AM ACCOUNT ADVISOR Plan of Treatment Health Maintenance Due Date Last Done Comments Depression Screening 1942 DTaP/Tdap/Td Vaccine (1 - Tdap) 1953 Hepatitis B Screening 1960 Well Visit 65+ 2007 Zoster Vaccine (2 of 3) 04/09/2013 02/12/2013 Osteoporosis Screening-Bone Density Scan 02/09/2014 02/10/2012, 02/10/2012 Fall Risk Assessment 04/29/2021 04/29/2020 Covid-19 Vaccine (6 - 2023-2 5 season) 2024 06/20/2022, 01/10/2022, 07/13/2021, Additional history exists Pneumococcal vaccine 65+ Completed 019, 07/26/2017, 07/24/2017 Influenza Vaccine Completed 06/13/2024, , 07/07/2021, Additional history exists Medical Devices Implanted Type Area Military Communications Specialist Device Identifier Shelf Expiration Date Model / Serial / Lot [employer] [id number] Tecnis Protec Tecnis Itec 6mm 13mm 1 Piece Anterior Aspheric - [id number] - [id number] Implanted:Qty: 1 on 06/21/2018 by Mary Torrez MD at [facility] Right: Eye [employer] 09/28/2020 [id number] / [id number] / Insurance MEDICARE MEDICARE MEDICARE Advance Directives For more information, please contact: [phone] * Full Code (Latest Code Status on File) Date Activated Date Inactivated Comments 04/29/2020 8:42 AM 04/29/2020 2:33 PM * Full Code Date Activated Date Inactivated Comments 09/03/2019 9:40 AM 09/03/2019 5:00 PM Care Teams Senior Tax Analyst Relationship Specialty Start Date End Date Bunny Aviles MD [address] [place] [address] PCP - General Family Medicine 10/30/23
--- OUTSIDE RECORDS SUMMARY | 2025-02-12 13:45 | XMS_ITS | Referral Summary ---
Author Organization [facility] Address [address] [place] [address] Care Team Providers Care Dumpman Name Role Phone Bunny Aviles MD Primary Care Provider [phone] Encounters Date Type Department Care Team Description 01/15/2025 Telephone [facility] First Floor [address] [place] [address] Suyapa Saini, YUN Cancel from Last 3 Months Allergies Active Allergy [...] (03/26/2020): Added automatically from request for surgery [id number] Polyp of cecum 07/29/2019 Overview (07/29/2019): Added automatically from request for surgery [id number] Pseudophakia of both eyes 07/17/2015 Overview (07/02/2018): [...] (05/17/2018): Added automatically from request for surgery [id number] Pseudophakia of left eye 05/16/2018 Assessment & [...] on file Legal Sex Female 6:55 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 Gender Identity Not on file Sexual Orientation Not on file Last Filed Vital Signs Vital Sign Reading Time Taken Comments Blood Pressure 120/70 09/23/2024 10:55 AM WAFER ABRADING MACHINE TENDER Pulse 82 09/23/2024 10:55 AM WAFER ABRADING MACHINE TENDER Temperature 36.7 C (98 F) 02/20/2024 11:16 AM CDT Respiratory Rate 19 09/23/2024 10:55 AM WAFER ABRADING MACHINE TENDER Oxygen Saturation 98% 09/23/2024 10:55 AM WAFER ABRADING MACHINE TENDER Inhaled Oxygen Concentration - - Weight 63.5 kg (140 lb) 09/23/2024 10:55 AM WAFER ABRADING MACHINE TENDER Height 157.5 cm (5' 2 ) 09/23/2024 10:55 AM WAFER ABRADING MACHINE TENDER Body Mass Index 25.61 09/23/2024 10:55 AM WAFER ABRADING MACHINE TENDER Plan of Treatment Not on file Medical Devices Implanted Type Area Dining Manager Device Identifier Shelf Expiration Date Model / Serial / Lot [employer] [id number] Tecnis Protec Tecnis Itec 6mm 13mm 1 Piece Anterior Aspheric - [id number] - [id number] Implanted:Qty: 1 on 06/21/2018 by Mary Torrez MD at [facility] Right: Eye [employer] 09/28/2020 [id number] / [id number] / Insurance MEDICARE MEDICARE MEDICARE Advance Directives For more information, please contact: [phone] * Full Code (Latest Code Status on File) Date Activated Date Inactivated Comments 04/29/2020 8:42 AM 04/29/2020 2:33 PM * Full Code Date Activated Date Inactivated Comments 09/03/2019 9:40 AM 09/03/2019 5:00 PM Care Teams Dumpman Relationship Specialty Start Date End Date Bunny [place] [address] PCP - General Family Medicine 10/30/23
--- OUTSIDE RECORDS SUMMARY | 2025-02-12 13:45 | XMS_ITS | Continuity of Care Document ---
Author Organization [facility] Address [address] [place] [address] Phone Care Team Providers Care Poultry Tender Name Role Phone Bunny Aviles MD Unavailable [...] Medicare Addendum PPPS, subseq visit OFFICE/OUTPATIENT VISIT, [facility] Advance Directives Directive Yes / No Effective Date File Name No Information Encounters Encounter Description Practice Location Reason(s) For Visit Diagnoses Date Provider Providers Copied on Encounter OFFICE/OUTPA TIENT VISIT, [facility], [address] [place], [place], [id number], tel:[phone] [facility] [place] HLP (chief complaint) glucose1 (chief complaint) GERD1 (chief complaint) memory1 (chief complaint) diarrhea1 (chief complaint) OsteoporosisOther dysphagiaMemory lossLower abdominal painDiarrheaMixed hyperlipidemiaHyper glycemia 4 Stefan Hollis. [address] [facility] [place], [id number] , [place]. tel:[phone] OFFICE/OUTPA TIENT VISIT, [facility], [address], [place], [id number], tel:[phone] [facility] physical (chief complaint) Encounter for general adult medical exam w abnormal findingsOther dysphagiaOsteoporos isPain in right kneeMemory loss 3 Stefan Hollis. [address], [place], [place], [id number] , [place]. tel:[phone] Family History Family Member Type Diagnosis Age [...] Date Complaint History Of Prese nt Illness memory1 Pt has dementia, and she sees [...] and she is drinking water ok diarrhea1 Pt has been havi ng persistent non-bloody diarrhea x 3 days. Pt thinks that it may be due to aricept so she stopped aricept after discussing with neurology Pt still has persistent non-bloody diarrhea x 8-9 times per day Pt c/o left lower abdominal pain as well. Pt denies any nausea, vomiting, appetite loss ,fever Pt denies any dizziness. GERD1 Pt has esophagea l ring. Pt [...] Mental Status Date Cognitive Assessment Orientation - [place] ed to time, place, person, situation.
--- OUTSIDE RECORDS SUMMARY | 2025-02-12 13:45 | XMS_ITS | Encounter Summary ---
Author Organization [employer] Address 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
--- OUTSIDE RECORDS SUMMARY | 2025-02-12 13:45 | XMS_ITS | Continuity of Care Document ---
Author Organization [facility] Address [address] [place] [address] [address] [place] [address] Phone Care Team Providers Care President Ceo & Founder Name Role Phone Unavailable Unavailable Unavailable Allergies, [...] Provider Providers Copied on Encounter [facility], [address] [place], [place] [address], [place], [place], [id number], [place] tel:[phone] [facility] blurry vision at near (chief complaint) borderline glaucoma (chief complaint) Open angle with borderline findings, low risk, bilateralPrese nce of intraocular lensVitreous degeneration, bilateral 8 No Information Family History Family Member Type Diagnosis Age At Onset No Information Payers Payer name Insurance type Covered libertarian ID Authoriza tion(s) [place] [id number] [place] [employer] CI [id number] Social History Type Description Quantity Date [...]
--- OUTSIDE RECORDS SUMMARY | 2025-02-12 13:46 | XMS_ITS | Clinical Summary ---
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 Not on file Not on file [...] 1961 ZOSTER VACCINE (1 of 2) 1992 OSTEOPOROSIS SCREENING 02/09/2017 02/10/2012 RSV VACCINE (60+ or ) (1 - 1-dose 75+ series) 2017 PNEUMOCOCCAL VACCINE 50+ YEA RS (2 of 2 - PPSV23) 06/19/2020 06/19/2019 INFLUENZA VACCINE (#1) 2024 1, 07/09/2020, 07/22/2019, Additional history exists COLORECTAL SCREENING Discontinued 03/28/2012, 02/09/20 05 Colorectal [...] Advance Directives For more information, please contact: [phone] * Full Code (Latest Code Status on File) Date Activated Date Inactivated Comments 03/28/2012 12:27 PM 03/28/2012 5:49 PM Care Teams Breaster Relationship Specialty Start Date End Date Irwin Gonzalez MD [address] [facility] [address] [place] [phone] PCP - General Internal Medicine 08/02/21
--- OUTSIDE RECORDS SUMMARY | 2025-02-12 13:46 | XMS_ITS | Data Portability ---
Author Organization [facility] Address [address] [place] [address] Care Team Providers Care Head Of Advertising Name Role Phone DREW BELLA Primary Care Provider Assessment No assessment recorded. Plan of Treatment Reminders Order Date Submit Date Provider Last Modified By Organization Details Last Modified Time Details Appointments None recorded. Lab None recorded. Referral dermatologi st referral 2023 JAKI Mota MD (Dermatology) , [address] [facility] , [facility], [place], [address], 4 04:19:06 Procedures None recorded. Surgeries None recorded. Imaging None recorded. Medication Orders quetiapine 25 mg tablet 2023 [facility][id number], [address] , [place], [place], [id number], 4 12:53:46 Seroquel 25 mg tablet 2023 024 [facility] #[id number], [address] , [place], [place], [id number], 4 14:53:19 Patient TargetsNo targets recorded. Patient InstructionsNo instructions recorded. 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 Tank Crewmember Referral for D isorder of skin New onset appearance non pigmented facial nodules Referring Physician: Drew Bella, Internal Medicine, Encounter Date: 06/20/2024 Problems Name Problem SNOMED Code Status Onset Date Resolution Date Notes Provider Name and Address Organization Details Recorded Time Primary degenerative dementia of the Alzheimer type, senile onset 326379858 Active 2023 Drew Bella MD Attn: Tasneem [address]as[address] [facility], [place], [address], [facility] 4 14:59:54 Median fissure of lip 521586480 Active 2023 Drew Bella MD Attn: Tasne[address] [place], [address], [facility] 4 15:02:13 Agitation due to dementia 017554248 Active 2023 Drew Bella MD Attn: Tasne[address] [place], [address], [facility] 4 14:50:40 Disorder of skin 03972624 Active 2023 Drew Bella MD Attn: Tasneem lucas,[address] [place], [address], [facility] 4 12:47:47 Problem Notes None recorded. Procedures Surgical History Date Name Laterality Status Provider Name and Address Organization Details Recorded Time Appendectomy completed Yoni Walker MA [facility] 06/20/2024 12:10:35 Imaging Results None [...] Address Organization Details Last Updated DateTime 4 92626.5 2 g 25 kg/m2 160.02 cm 98 % 98 % 98 [degF] 87 /min 152 mm[Hg] 82 mm[Hg] Mariola Barrett MA [facility] 4 14:25:55 Date Recorded Body height Body mass index (BMI) Body weight Heart rate Oxygen saturation Oxygen saturation in Arterial blood by Pulse oximetry Systolic blood pressure Diastolic blood pressure Provider Name and Address Organization Details Last Updated DateTime 4 160.02 cm 25 kg/m2 11122.5 2 g 87 /min 98 % 98 % 154 mm[Hg] 78 mm[Hg] Mariola Barrett MA [facility] 4 12:47:34 Date Recorded Body height Body mass index (BMI) Body weight Heart rate Oxygen saturation Oxygen saturation in Arterial blood by Pulse oximetry Systolic blood pressure Diastolic blood pressure Provider Name and Address Organization Details Last Updated DateTime 4 160.02 cm 24.4 kg/m2 92064.6 7 g 82 /min 95 % 95 % 111 mm[Hg] 71 mm[Hg] Yoni Walker MA [facility] 4 12:18:20 Social History Question [...] Anxious, Or Unable To Sleep At Night)? [id number] Information not available 06/20/2024 Do You Use [...] Skin Problems N Anemia N Heart Attack ([place]) N Anxiety Disorder N Diabetes N Muscle, [...] 12:07:51 Influenza, high-dose, quadrivalent, PF 2 completed CRALIE [place], [place] - [facility] 06/20/2024 12:07:51 Influenza, [...] SNOMED-CT Code Diagnosis ICD10 Code Diagnosis Note [id number] MD Merline Gentile (Adult Med) [address] [place] [address] 01/30/2024 13:42:07 01/31/2024 12:13:51 Primary degenerative dementia of the Alzheimer type, senile onset 712130468 G30.1 F/U neurologis t Median fissure of lip 40 0460578 K13.0 Continue dental cream [id number] MD Merline Gentile (Adult Med) [address] [place] [address] 03/26/2024 12:18:25 03/28/2024 14:52:01 Agitation due to dementia 918609335 F03.662 [id number] MD Merline Gentile (Adult Med) [address] [place] [address] 06/20/2024 11:51:02 06/21/2024 11:36:36 Disorder of skin 06948233 L98.9 Agitation due to dementia 979632906 F03.911 Will increase seroquel Health Concerns Section Related Observation LastModified by Organization Detai ls LastModified Time None Recorded Concern Status LastModified by Organization Details LastModified Time None Recorded Advance Directives Directive Y: Payers Encounter Date Sequence Insurance Name Policy Number Policy Berrios Covered Member ID Berrios Member ID Guarantor Name 01/30/2024 1 [place] Kellee K Enola [id number] Kellee Enola 03/26/2024 1 [place] Kellee K Enola [id number] Kellee Enola 03/26/2024 2 [employer] - PLAN F (MEDICARE SUPPLEMENT) Kellee Enola [id number] Kellee Enola 06/20/2024 1 [place] Kellee K Enola [id number] Kellee Enola 06/20/2024 2 [facility] [employer] - PLAN F (MEDICARE SUPPLEMENT) Kellee Enola [id number] Kellee Enola Notes Date Note Type Note Provider Name and Address Organization Details Recorded Time 01/30/2024 text/html Changing PCP Drew Bella MD Attn: [address] [facility], [place], [address], [facility] 01/30/2024 15:05:52 03/26/2024 text/html Here with junior Rosario because of stress that is apparent in the evening. This appears to be increasing in the past couple months. Aricept had been stopped because of side effect Drew Bella MD Attn: [address] [facility], [place], [address], [facility] 03/26/2024 14:53:56 06/20/2024 text/html Here with her . Her is concerned about her restlesness prior to going to bed. Her is also concerned about facial skin nodules Appetite appears good Drew Bella MD Attn: [address] [facility], [place], [address], [facility] 06/20/2024 12:58:50 OBGyn Episode No OBEpisode recorded.
--- OUTSIDE RECORDS SUMMARY | 2025-02-12 13:46 | XMS_ITS | Clinical Summary ---
Author Organization [facility] Address [address] [place] [address] Care Team Providers Care Health/Safety Job Titles Name Role Phone Drew Bella MD Primary Care Provider [phone] Social History Tobacco Use Types Packs/Day Years [...] Td Vaccines ( 1 - Tdap) 1961 Pneumococcal Vaccine: 50+ Ye ars (1 of 1 - PCV) 1992 Zoster Vaccines (1 of 2) 1992 Annual Medicare Wellness Visit 2007 Dexa Scan (General) 2007 RSV Immunization or 60+ Years (1 - 1-dose 75+ series) 2017 COVID-19 Vaccine ( - 2023-2 5 season) 2024 PHQ-2 (Physician [place]) 10/09/2024 Meningococcal B Vaccine Aged Out No l onger eligible based on patient's age to complete this topic Meningococcal Vaccine Aged Out No isabella francine eligible based on patient's age to complete this topic RSV Immunizations Under 20 Months Aged Out No longer eligible based on patient's age to complete this topic Insurance MEDICARE Care Teams Health/Safety Job Titles Relationship Specialty Start Date End Date Drew Bella MD PCP - General INTERNAL MEDICINE 03/07/24
--- OUTSIDE RECORDS SUMMARY | 2025-02-12 13:46 | XMS_ITS | CONTINUITY OF CARE DOCUMENT ---
Author Name adriana wright Address Unknown Organization [facility] Address [address] [facility] [address] [place] [address] Phone [phone] Care Team Providers Care Battery Plate Remover Name Role Phone Seda LIU, Enrique Unavailable Irwin Gonzalez MD Unavailable INSURANCE PROVIDERS Payer name Policy type / Coverage type [employer] party ID [place] [employer] Medicare [id number] SELF PAY
--- NOTE | 2025-02-12 15:59 | REHSTMBS ---
Assessment and note entered by Michelle Jama TRAVELING SALES EXECUTIVE Modified Barium Swallow Evaluation ICD-10 Condition Codes (ST) Dysphagia, unspecified R13.1,Dysphagia, pharyngoesophageal phase R13.14 Feeding Type Recommended Oral ST Clinical Summary This very confused but cooperative patient was seen for an outpatient MBS due to 2 episodes of regurgitating food over the last 6 months. Per the patient's , the patient had her esophagus stretched last year. The patient was seated for a lateral view and presented with 5 ml of thin liquid barium via a spoon, a pudding consistency barium via a spoon, a cracker coated with barium pudding via a spoon, and an uncontrolled thin liquid barium bolus. This was presented via a cup and a straw. Oral preparatory and oral phase symptoms: none. Pharyngeal phase symptoms: none. Esophageal stage symptoms: backflow from the level of the UES to the pyriform sinuses with all consistencies except for the uncontrolled thin liquid trials via the cup and straw. Contents did not enter the laryngeal vestibule and were cleared from the pharynx when the patient independently dry swallowed. No aspiration occurred, and no regurgitation into the oral cavity occurred. Impression: functional swallow; however, pt experiences backflow; she clears the backflow, but could be at risk of aspirating. Recommendations: GI consult for a possible upper esophageal dilation.
== END 2025-02-12 13:36 | disposition home or self-care (01) ==
PROVIDERS: PCP Internal Medicine; Visit Provider Internal Medicine
DX: R13.10 Dysphagia, unspecified (principal)
CPT/HCPCS: 92611

== ENCOUNTER 2025-03-19 15:12 | Outpatient (CLI) | payer MEDICARE, SELFPAY ==
[2025-03-19 16:48] LABS: Add Urine Microscopic? YES; Appearance Urine Clear (Clear); Bacteria Urine None Seen /hpf; Bilirubin Urine Negative (Negative); Blood Urine Negative (Negative); Color Urine Yellow (Yellow); Glucose Urine UA Negative (Negative); Ketones Urine Trace mg/dL (Negative); Leukocyte Esterase Ur Trace LEU/UL (Negative); Nitrate Urine Negative (Negative); Non Pathogenic Casts 0-2; Protein Urine Negative (Negative); Specific Grav Ur 1.027 (1.001-1.035); Squamous Epithelial Cell Urine None Seen /hpf (Few); WBC Urine 0-5 /hpf (0-3)
--- OUTSIDE RECORDS SUMMARY | 2025-03-19 17:37 | XMS_ITS | Encounter Summary ---
Author Organization [facility] Address [address] [place] [address] Care Team Providers Care Sampling Expert Name Role Phone Irwin Gonzalez MD Primary Care Provider [phone] Encounter Details Date Type Department Care Team (Late st Contact Info) Description 07/01/2005 Outpatient Historical [facility] Davon Hackett MD NO ADDRESS ON FILE SCREENING MAL NEOP-COLON (Primary Dx) Social History Tobacco Use Types Packs/Day Years Used Date Smoking Tobacco: Never Assessed Comments Unknown Sex and Gender Information Value Date Recorded Sex Assigned at Not on file Legal Sex Female 5:23 AM [employer] Gender Identity Not on file Sexual Orientation Not on file documented as of this encounter Plan of Treatment Not on file documented as of this encounter Visit Diagnoses Diagnosis Special screening for malignant neoplasms, colon- Primary documented in this encounter Care Teams Sampling Expert Relationship Specialty Start Date End Date Irwin Gonzalez MD [address] [phone] PCP - General Internal Medicine 08/02/21 documented as of this encounter
--- OUTSIDE RECORDS SUMMARY | 2025-03-19 17:37 | XMS_ITS | Continuity of Care Document ---
Author Organization [facility] Address [address] [facility] [address] Phone Care Team Providers Care Molder Bench Name Role Phone Bunny Aviles MD Unavailable [...] Medicare Addendum PPPS, subseq visit OFFICE/OUTPATIENT VISIT, [facility] Advance Directives Directive Yes / No Effective Date File Name No Information Encounters Encounter Description Practice Location Reason(s) For Visit Diagnoses Date Provider Providers Copied on Encounter OFFICE/OUTPA TIENT VISIT, [facility], [address], [id number], tel:[phone] [facility] HLP (chief complaint) glucose1 (chief complaint) GERD1 (chief complaint) memory1 (chief complaint) diarrhea1 (chief complaint) OsteoporosisOther dysphagiaMemory lossLower abdominal painDiarrheaMixed hyperlipidemiaHyper glycemia 4 Stefan Hollis. [address] [facility] [place], [id number] , [place]. tel:[phone] OFFICE/OUTPA TIENT VISIT, [facility], [address], [place], [id number], tel:[phone] [facility] physical (chief complaint) Encounter for general adult medical exam w abnormal findingsOther dysphagiaOsteoporos isPain in right kneeMemory loss 3 Stefan Hollis. [address], [place], [place], [id number] , [place]. tel:[phone] Family History Family Member Type Diagnosis Age [...] Date Complaint History Of Prese nt Illness HLP Pt has HLP Pt is working on diet glucose1 Pt has borderlin e high glucose pt denies any polyuria, polydipsia GERD1 Pt has esophagea l ring. Pt underwent dilation recently and she has HH as well Pt never tried omeprazole .She did some research and she does not want to take omeprazole Pt states that her dysphagia resolved after dilation . diarrhea1 Pt has been havi ng persistent [...] appetite and she is drinking water ok physical Pt needs annual physical. Pt has [...] Mental Status Date Cognitive Assessment Orientation - Freedom ed to time, place, person, situation.
--- OUTSIDE RECORDS SUMMARY | 2025-03-19 17:37 | XMS_ITS | Data Portability ---
Author Organization [facility] Address [address] [place] [address] Care Team Providers Care Front Office Representative Name Role Phone DREW BELLA Primary Care Provider Assessment No assessment recorded. Plan of Treatment Reminders Order Date Submit Date Provider Last Modified By Organization Details Last Modified Time Details Appointments None recorded. Lab None recorded. Referral dermatologi st referral 2023 JAKI Mota MD (Dermatology) , [address] [facility] , [facility], [place], [address], 5 04:21:24 Procedures None recorded. Surgeries None recorded. Imaging None recorded. Medication Orders quetiapine 25 mg tablet 2023 024 [id number], [address] , [place], [place], [id number], 4 12:53:46 Seroquel 25 mg tablet 2023 024 [facility] #[id number], [address] , [place], [place], [id number], 4 14:53:19 Patient TargetsNo targets recorded. Patient InstructionsNo instructions recorded. 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 Medical Scheduler Referral for D isorder of skin New onset appearance non pigmented facial nodules Referring Physician: Drew Bella, Internal Medicine, Encounter Date: 06/20/2024 Results Created Date Observation Date Name Description Value Unit Range Abnormal Flag Note LastModifiedBy Organization Detail LastModifiedTime 05/20/20 24 05/22/2024 Patho logy study [facility] [address] [place] [address] Teleph one: , extens ion [id number] Pathol ogy Report Surgic al Pathol ogy Report Name: KELLEE WAN en #: [id number] Age: [birth year] (Age: 83) Locati on: [facility] Sex: F Proced ure Date: Hospit al #: [id number] 10 Date Receiv ed: Date Report ed: Provid er: PROVID ER NON-ST AFF Source : Gallbl adder and conten ts Clinic al Histor y: Cholec ystiti s Gross Descri ption: Receiv ed in formal in, labele d with a patien t label and as gallb ladder with conten ts is a 7 x 2 x 2 cm gallbl adder with a rossi serosa . The cystic duct has a diamet er of 0.3 cm and appear s patent . The gallbl adder is opened to reveal that the lumen contai ns green fluid and pieces of hard green- brown stone materi al, 2 x 1.5 x 1.5 cm in aggreg ate. The lumen is lined by a green mucosa . No polyps or mass lesion s are identi fied. The wall of the gallbl adder has an averag e thickn ess of 0.3 cm. Repres entati ve tissue to includ e the cystic duct margin is submit bree in casset te 1. Gross examin ation (when applic able), interp retati on, and sign out [facility] [address] [place] [address]. FINAL DIAGNO SIS: Gallbl adder, cholec ystect devora: -Chron ic cholec ystiti s. -Marley lithia sis. Elec neno woo Signed Out CALLY CASE MD [facility] at[facility] Medic ine [address] [place] [address] Telep homer: , exten yamilet 07 Patho logy Repor t Surgi sandy Patho logy Repor t Name: KELLEE LLOYD men #: [id number] Age: [birth year] (Age: 83) Locat ion: [facility] Sex: F Proce dure Date: 2023 Hospi elida #: [id number] Date Recei connie: 2023 Date Repor bree: 2023 Provi leslie: PROVI LESLIE NON-S TAFF Sourc e: Gallb ladde r and puja nts Clini sandy Histo ry: Marley cysti tis Gross Descr iptio n: Recei connie in forma rajesh, label ed with a patie nt label and as gall bladd er with puja nts is a 7 x 2 x 2 cm gallb ladde r with a rossi seros a. The cysti c duct has a diame ter of 0.3 cm and appea rs paten t. The gallb ladde r is opene d to revea l that the lumen conta ins green fluid and piece s of hard green -brow n stone mater ial, 2 x 1.5 x 1.5 cm in aggre gate. The lumen is lined by a green mucos a. No polyp s or mass lesio ns are ident ified . The wall of the gallb ladde r has an avera ge thick ness of 0.3 cm. Repre senta tive tissu e to inclu de the cysti c duct evens n is submi tted in casse tte 1. Gross exami natio n (when appli cable ), inter preta tion, and sign out were perfo rmed at [facility], [address] [facility], [place] [address] . FINAL DIAGN OSIS: Gallb ladde r, marley cyste ctomy : -Hand Molder And Caster pablito marley cysti tis. -Chol elith iasis . Jenna ctron icall y Nicki d Out HARJIT CASE MD [facility] Not Available Not Available 02/19/2025 13:56:34 Result Notes None recorded. Problems Name Problem SNOMED Code Status Onset Date Resolution Date Notes Provider Name and Address Organization Details Recorded Time Primary degenerative dementia of the Alzheimer type, senile onset 345693102 Active 2023 Drew Bella MD Attn: Tasneem lucas,[address] [facility], [place], [address], [facility] 4 14:59:54 Median fissure of lip 378855937 Active 2023 Drew Bella MD Attn: Tasneem lucas,[address] [facility], [place], [address], [facility] 4 15:02:13 Agitation due to dementia 310324393 Active 2023 Drew Bella MD Attn: Tasneem lucas,[address] [facility], [place], [address], [facility] 4 14:50:40 Disorder of skin 37790175 Active 2023 Drew Bella MD Attn: Tasneem lucas,[address] [facility], [place], [address], [facility] 4 12:47:47 Problem Notes None recorded. Procedures Surgical History Date Name Laterality Status Provider Name and Address Organization Details Recorded Time Appendectomy completed Yoni Walker MA [facility] 06/20/2024 12:10:35 Imaging Results None recorded. Procedure [...] Address Organization Details Last Updated DateTime 4 48052.5 2 g 25 kg/m2 160.02 cm 98 % 98 % 98 [degF] 87 /min 152 mm[Hg] 82 mm[Hg] Mariola Barrett MA [facility] 4 14:25:55 Date Recorded Body height Body mass index (BMI) Body weight Heart rate Oxygen saturation Oxygen saturation in Arterial blood by Pulse oximetry Systolic blood pressure Diastolic blood pressure Provider Name and Address Organization Details Last Updated DateTime 4 160.02 cm 25 kg/m2 35181.5 2 g 87 /min 98 % 98 % 154 mm[Hg] 78 mm[Hg] Mariola Barrett MA [facility] 4 12:47:34 Date Recorded Body height Body mass index (BMI) Body weight Heart rate Oxygen saturation Oxygen saturation in Arterial blood by Pulse oximetry Systolic blood pressure Diastolic blood pressure Provider Name and Address Organization Details Last Updated DateTime 4 160.02 cm 24.4 kg/m2 63620.6 7 g 82 /min 95 % 95 % 111 mm[Hg] 71 mm[Hg] Yoni Walker [place] 12:18:20 Social History Question Answer Notes LastModified by Organizat ion Details LastModified Time Tobacco Smoking Status Never Smoker Mariola Barrett MA null, [facility] 01/30/2024 14:23:21 Do You Have An Advance Directive? Yes Information not available 06/20/2024 Are You Blind Or Do You Have Difficulty Seeing? No Information not available 06/20/2024 What Is Your Level Of Caffeine Consumption? Moderate Information not available 06/20/2024 Are You Deaf [...] Your Home? Yes Information not available 06/20/2024 Has Tobacco Cessation Counseling Been Provided? No Information not available 01/30/2024 Sex: Female Functional Status Question Answer Note LastModified by Organizat ion Details LastModified Time Do you use any illicit or recreational drugs? No Information not available 06/20/2024 Do you or have you ever used any other forms of tobacco or nicotine? No Information not available 01/30/2024 What is your level of alcohol consumption? None Information not available 06/20/2024 Are you currently employed? No retired Information not available 06/20/2024 Are you able to care for yourself? Yes Information n ot available 06/20/2024 Mental Status Question Answer Note LastModified by Organization D etails LastModified Time Do you feel stressed (tense, restless, nervous, or anxious, or unable to sleep at night)? [id number] Information not available 06/20/2024 Family History Relationship Description Onset Age of this Age Resolved Age Notes LastModified by Organization Details LastModified Time Father No current problems or disability [email or web address] Not available 01/29 14:23:30 Mother No current problems or disability [email or web address] Not available 01/29 14:23:30 Medical History Condition Response Coronary Artery Disease N Other Y Atrial Fibrillation N High Blood Pressure N Thyroid Problems N Kidney or Bladder Problems N Depression N COPD N Blood Clots N GI Problems N Have you had a mammogram in the last yea r? N Skin Problems N Anemia N Heart Attack (NC) N Diabetes N Anxiety Disorder N Muscle, Joint, or Bone Problems N Seizures/Epilepsy N Have you had a colonoscopy in the last 1 0 years? N Acid Reflux (GERD) N Cancer N Stroke N Allergies N Asthma N Have you had a PSA blood test in the las t year? N High Cholesterol N Hepatitis N Liver Disease N Headaches N Osteoporosis N Heart Failure N Gynecological HistoryNo gynecological history recorded. Obstetrics History GPAL:G 0 P 0 0 0 0 Immunizations Vaccine Type Date Status Note Provider Nam e and Address Organization Details Recorded Time Influenza, split virus, quadrivalent, preservative 8 completed Yoni Walker [place] null, [place] [facility] 06/20/2024 12:07:51 Influenza, split virus, quadrivalent, preservative 5 completed Yoni Walker [place], [place] [facility] 06/20/2024 12:07:51 Influenza, high-dose, quadrivalent, PF 2 completed Yoni [place] [facility] 06/20/2024 12:07:51 Influenza, high-dose, quadrivalent, PF 1 completed Yoni Walker [place], [place] - [...] [facility] 06/20/2024 12:07:51 pneumococcal polysaccharide PPV23 7 CARLIE A[place] [facility] 06/20/2024 12:07:51 Pneumococcal conjugate PCV 13 9 completed [place] [facility] 06/20/2024 12:07:51 Pneumococcal conjugate PCV 13 7 [place] [facility] 06/20/2024 12:07:51 zoster live 3 completed [place] [facility] 06/20/2024 12:07:51 Influenza, high-dose, trivalent, PF 7 [place] [facility] 06/20/2024 12:07:51 Influenza, adjuvanted, trivalent, PF 4 completed Yoni Walker MA mery, [place] - [facility] 06/20/2024 12:16:40 RSV, bivalent, protein subunit RSVpreF, diluent reconstituted, 0.5 mL, PF 4 completed CARLIE Leahy, [place] - [facility] 06/20/2024 12:16:41 COVID-19, mRNA, LNP-S, PF, maxim-sucrose, 30 mcg/0.3 mL 4 completed Yoni Walker MA [place], [place] - [facility] 06/20/2024 12:16:41 Past Encounters Encounter ID Performer Location Encounter Start Date Encounter Closed Date Diagnosis/Indication Diagnosis SNOMED-CT Code Diagnosis ICD10 Code Diagnosis Note [id number] MD Merline Gentile (Adult Med) [address] [place] [id number] 01/30/2024 13:42:07 01/31/2024 12:13:51 Primary degenerative dementia of the Alzheimer type, senile onset 169497164 G30.1 F/U neurologis t Median fissure of lip 40 1275209 K13.0 Continue dental cream [id number] MD Merline Gentile (Adult Med) [address] [place] [phone] 03/26/2024 12:18:25 03/28/2024 14:52:01 Agitation due to dementia 950133715 F03.492 [id number] MD Merline Gentile (Adult Med) [address] [place] [id number] 06/20/2024 11:51:02 06/21/2024 11:36:36 Disorder of skin 62727280 L98.9 Agitation due to dementia 468736313 F03.911 Will increase seroquel Health Concerns Section Related Observation LastModified by Organization Detai ls LastModified Time None Recorded Concern Status LastModified by Organization Details LastModified Time None Recorded Advance Directives Directive Y: Payers Encounter Date Sequence Insurance Name Policy Number Policy Berrios Covered Member ID Berrios Member ID Guarantor Name 01/30/2024 1 [place] Kellee K [place] [id number] Kellee [place] 03/26/2024 1 [place] Kellee K [place] [id number] Kellee [place] 03/26/2024 2 [place] [employer] - PLAN F (MEDICARE SUPPLEMENT) Kellee [place] [id number] Kellee [place] 06/20/2024 1 [place] Kellee K [place] [id number] Kellee [place] 06/20/2024 2 [place] [employer] - PLAN F (MEDICARE SUPPLEMENT) Kellee [place] [id number] Kellee [place] Notes Date Note Type Note Provider Name and Address Organization Details Recorded Time 01/30/2024 text/html Changing PCP Drew Bella MD Attn: Accounting,[address] [facility], [place], [address], [facility] 01/30/2024 15:05:52 03/26/2024 text/html Here with chalohe libby Mr Rosario because of stress that is apparent in the evening. This appears to be increasing in the past couple months. Aricept had been stopped because of side effect Drew Bella MD Attn: Accounting, [address] [facility], [place], [address], [facility] 03/26/2024 14:53:56 06/20/2024 text/html Here with her . Her is concerned about her restlesness prior to going to bed. Her is also concerned about facial skin nodules Appetite appears good Drew Bella MD Attn: Accounting, [address] [facility], [place], [address], [place] [facility] 06/20/2024 12:58:50 OBGyn Episode No OBEpisode recorded.
--- OUTSIDE RECORDS SUMMARY | 2025-03-19 17:37 | XMS_ITS | Clinical Summary ---
Author Organization [facility] Address [address] [place] [address] Care Team Providers Care Sheep Farm Manager Name Role Phone Bunny Aviles MD Primary Care Provider [phone] Allergies Active Allergy Reactions Criticality Noted Date [...] mouth nightly 60 tablet 2 4 Active rivastigmine (EXELON) 4.6 mg/24 hourIndications :Mild to Moderate Alzheimer's Type Dementia Place 4.6 mg on the skin daily 30 patch 2 4 Active memantine (NAMENDA) 10 mg tablet TAKE 1 TABLET BY MOUTH TWICE DAILY 180 tablet 5 Active Active Problems Problem Noted Date Diagnosed Date Mild cognitive impairment 04/06/2023 History of colon polyps 03/26/2020 Overview (03/26/2020): Added automatically from request for surgery [id number] Polyp of cecum 07/29/2019 Overview (07/29/2019): Added automatically from request for surgery [id number] Pseudophakia of both eyes 07/17/2015 Overview (07/02/2018): [...] (05/17/2018): Added automatically from request for surgery [id number] Pseudophakia of left eye 05/16/2018 Assessment & Plan (05/16/2018 12:16 PM CDT): Min PCF left eye (OS). Not vis significant. Implants in good position. Vision stable Encounters Date Type Department Care Team Description 01/15/2025 Telephone [facility] [facility] First Floor [address] [place] [address] Suyapa Saini, RMA Cancel from [...] on file Legal Sex Female 6:55 PM CORPORATION LAWYER Gender Identity Not on file Sexual Orientation Not on file Obstetrics History Last Filed Vital Signs Vital Sign Reading Time Taken Comments Blood Pressure 120/70 09/23/2024 10:55 AM CORPORATION LAWYER Pulse 82 09/23/2024 10:55 AM CORPORATION LAWYER Temperature 36.7 C (98 F) 02/20/2024 11:16 AM CDT Respiratory Rate 19 09/23/2024 10:55 AM CORPORATION LAWYER Oxygen Saturation 98% 09/23/2024 10:55 AM CORPORATION LAWYER Inhaled Oxygen Concentration - - Weight 63.5 kg (140 lb) 09/23/2024 10:55 AM CORPORATION LAWYER Height 157.5 cm (5' 2) 09/23/2024 10:55 AM CORPORATION LAWYER Body Mass Index 25.61 09/23/2024 10:55 AM CORPORATION LAWYER Plan of Treatment Health Maintenance Due Date Last Done Comments Depression Screening 1942 DTaP/Tdap/Td Vaccine (1 - Tdap) 1953 Hepatitis B Screening 1960 Well Visit 65+ 2007 Zoster Vaccine (2 of 3) 04/09/2013 02/12/2013 Osteoporosis Screening-Bone Density Scan 02/09/2014 02/10/2012, 02/10/2012 Fall Risk Assessment 04/29/2021 04/29/2020 Covid-19 Vaccine (2023- 5 season) 2024 06/20/2022, 01/10/2022, 07/13/2021, Additional history exists Pneumococcal vaccine 65+ Completed 019, 07/26/2017, 07/24/2017 Influenza Vaccine Completed 06/13/2024, , 07/07/2021, Additional history exists Medical Devices Implanted Type Area Licensed Club Manager Device Identifier Shelf Expiration Date Model / Serial / Lot [place] [employer] [id number] Tecnis Protec Tecnis Itec 6mm 13mm 1 Piece Anterior Aspheric - [id number] - [id number] Implanted:Qty: 1 on 06/21/2018 by Mary Torrez MD at [facility] Right: Eye [employer] 09/28/2020 [id number] / [id number] / Insurance [id number] [place] [address] MEDICARE MEDICARE MEDICARE Advance Directives For more information, please contact: [phone] * Full Code (Latest Code Status on File) Date Activated Date Inactivated Comments 04/29/2020 8:42 AM 04/29/2020 2:33 PM * Full Code Date Activated Date Inactivated Comments 09/03/2019 9:40 AM 09/03/2019 5:00 PM Care Teams Sheep Farm Manager Relationship Specialty Start Date End Date Bunny Aviles MD [address] [facility] [place] [address] PCP - General Family Medicine 10/30/23
--- OUTSIDE RECORDS SUMMARY | 2025-03-19 17:37 | XMS_ITS | Continuity of Care Document ---
Author Organization [facility] Address [address] [place] [address] [address] [place] [address] Phone Care Team Providers Care Paper Baling Machine Operator Name Role Phone Unavailable Unavailable Unavailable Allergies, [...] Provider Providers Copied on Encounter [facility], [address] [place], [place] [address], [place], [place], [id number], [place] tel:[phone] OPH CONSULT [facility] blurry vision at near (chief complaint) borderline glaucoma (chief complaint) Open angle with borderline findings, low risk, bilateralPrese nce of intraocular lensVitreous degeneration, bilateral 8 No Information Family History Family Member Type Diagnosis Age At Onset No Information Payers Payer name Insurance type Covered alliance party ID Authoriza tion(s) [place]IC[place] KATELYNN [id number] [employer] CI [id number] Social History Type Description Quantity Date [...]
--- OUTSIDE RECORDS SUMMARY | 2025-03-19 17:37 | XMS_ITS | Referral Summary ---
Author Organization [facility] Address [address] [place] [address] Care Team Providers Care Nanotechnology Engineering Technologist Name Role Phone Bunny Aviles MD Primary Care Provider Encounters Date Type Department Care Team Description 01/15/2025 Telephone [facility] [facility] First Floor [address] [place] [address] Suyapa Saini, YUN Cancel from [...] (03/26/2020): Added automatically from request for surgery [id number] Polyp of cecum 07/29/2019 Overview (07/29/2019): Added automatically from request for surgery [id number] Pseudophakia of both eyes 07/17/2015 Overview (07/02/2018): [...] (05/17/2018): Added automatically from request for surgery [id number] Pseudophakia of left eye 05/16/2018 Assessment & [...] on file Legal Sex Female 6:55 PM HYGIENE COORDINATOR Gender Identity Not on file Sexual Orientation Not on file Last Filed Vital Signs Vital Sign Reading Time Taken Comments Blood Pressure 120/70 09/23/2024 10:55 AM HYGIENE COORDINATOR Pulse 82 09/23/2024 10:55 AM HYGIENE COORDINATOR Temperature 36.7 C (98 F) 02/20/2024 11:16 AM CDT Respiratory Rate 19 09/23/2024 10:55 AM HYGIENE COORDINATOR Oxygen Saturation 98% 09/23/2024 10:55 AM HYGIENE COORDINATOR Inhaled Oxygen Concentration - - Weight 63.5 kg (140 lb) 09/23/2024 10:55 AM HYGIENE COORDINATOR Height 157.5 cm (5' 2) 09/23/2024 10:55 AM HYGIENE COORDINATOR Body Mass Index 25.61 09/23/2024 10:55 AM HYGIENE COORDINATOR Plan of Treatment Not on file Medical Devices Implanted Type Area Optical Scientist Device Identifier Shelf Expiration Date Model / Serial / Lot [place] [employer] [id number] Tecnis Protec Tecnis Itec 6mm 13mm 1 Piece Anterior Aspheric - [id number] - [id number] Implanted:Qty: 1 on 06/21/2018 by Mary Torrez MD at [facility] Right: Eye [place] [employer] 09/28/2020 [id number] / [id number] / Insurance [facility] MEDICARE MEDICARE MEDICARE Advance Directives For more information, please contact: [phone] * Full Code (Latest Code Status on File) Date Activated Date Inactivated Comments 04/29/2020 8:42 AM 04/29/2020 2:33 PM * Full Code Date Activated Date Inactivated Comments 09/03/2019 9:40 AM 09/03/2019 5:00 PM Care Teams Nanotechnology Engineering Technologist Relationship Specialty Start Date End Date Bunny Aviles MD [facility] [place] [address] PCP - General Family Medicine 10/30/23
--- OUTSIDE RECORDS SUMMARY | 2025-03-19 17:37 | XMS_ITS | Clinical Summary ---
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
--- OUTSIDE RECORDS SUMMARY | 2025-03-19 17:37 | XMS_ITS | Encounter Summary ---
Author Organization [employer] Address [address] [place] [address] Care Team Providers Care Link Trainer Maintenance Man Name Role Phone Irwin Gonzalez MD Primary Care Provider [phone] Encounter Details Date Type Department Care Team (Late st Contact Info) Description 07/25/2006 Outpatient Historical [facility] Aniket Case MD NO ADDRESS ON FILE Dysphagia (Primary Dx) Social History Tobacco Use Types Packs/Day Years Used Date Smoking Tobacco: Never Assessed Comments Unknown Sex and Gender Information Value Date Recorded Sex Assigned at Not on file Legal Sex Female 5:23 AM ETCHER PHOTOENGRAVING Gender Identity Not on file Sexual Orientation Not on file documented as of this encounter Plan of Treatment Not on file documented as of this encounter Visit Diagnoses Diagnosis Dysphagia- Primary documented in this encounter Care Teams Link Trainer Maintenance Man Relationship Specialty Start Date End Date Irwin Gonzalez MD [address] [address] PCP - General Internal Medicine 08/02/21 documented as of this encounter
--- OUTSIDE RECORDS SUMMARY | 2025-03-19 17:37 | XMS_ITS | CONTINUITY OF CARE DOCUMENT ---
Author Name adriana wright Address Unknown Organization [facility] Address [address] [facility] [address] [place] [address] Phone [phone] Care Team Providers Care Traffic Supervisor Name Role Phone Seda LIU, Enrique Unavailable [phone] Irwin Gonzalez MD Unavailable [phone] INSURANCE PROVIDERS Payer name Policy type / Coverage type [place] red alliance party ID [place] Medicare [id number] SELF PAY
== END 2025-03-19 15:13 | disposition home or self-care (01) ==
PROVIDERS: PCP Internal Medicine; Visit Provider Internal Medicine
DX: R35.1 Nocturia (principal)
CPT/HCPCS: 81001

== ENCOUNTER 2025-03-20 09:27 | Outpatient (CLI) | payer MEDICARE, SELFPAY ==
--- OUTSIDE RECORDS SUMMARY | 2025-03-20 10:06 | XMS_ITS | Encounter Summary ---
Author Organization [employer] Address [address] [place] [address] Care Team Providers Care Assistant Therapy Aide Name Role Phone Irwin Gonzalez MD Primary Care Provider [phone] Encounter Details Date Type Department Care Team (Late st Contact Info) Description 07/01/2005 Outpatient Historical [facility] Davon Hackett MD NO ADDRESS ON FILE SCREENING MAL NEOP-COLON (Primary Dx) Social History Tobacco Use Types Packs/Day Years Used Date Smoking Tobacco: Never Assessed Comments Unknown Sex and Gender Information Value Date Recorded Sex Assigned at Not on file Legal Sex Female 5:23 AM OLIVE GROWER Gender Identity Not on file Sexual Orientation Not on file documented as of this encounter Plan of Treatment Not on file documented as of this encounter Visit Diagnoses Diagnosis Special screening for malignant neoplasms, colon- Primary documented in this encounter Care Teams Assistant Therapy Aide Relationship Specialty Start Date End Date Irwin Gonzalez MD [address] [phone] PCP - General Internal Medicine 08/02/21 documented as of this encounter
--- OUTSIDE RECORDS SUMMARY | 2025-03-20 10:06 | XMS_ITS | Referral Summary ---
Author Organization [facility] Address [address] [place] [address] Care Team Providers Care Alcoholic Counselor Name Role Phone Bunny Aviles MD Primary Care Provider Encounters Date Type Department Care Team Description 01/15/2025 Telephone [facility] [place] [facility] First Floor [address] [place] [address] Suyapa Saini, YUN Cancel from [...] (03/26/2020): Added automatically from request for surgery [id number] Polyp of cecum 07/29/2019 Overview (07/29/2019): Added automatically from request for surgery [id number] Pseudophakia of both eyes 07/17/2015 Overview (07/02/2018): [...] (05/17/2018): Added automatically from request for surgery [id number] Pseudophakia of left eye 05/16/2018 Assessment & [...] on file Legal Sex Female 6:55 PM FLOOR COVERING LAYER Gender Identity Not on file Sexual Orientation Not on file Last Filed Vital Signs Vital Sign Reading Time Taken Comments Blood Pressure 120/70 09/23/2024 10:55 AM FLOOR COVERING LAYER Pulse 82 09/23/2024 10:55 AM FLOOR COVERING LAYER Temperature 36.7 C (98 F) 02/20/2024 11:16 AM CDT Respiratory Rate 19 09/23/2024 10:55 AM FLOOR COVERING LAYER Oxygen Saturation 98% 09/23/2024 10:55 AM FLOOR COVERING LAYER Inhaled Oxygen Concentration - - Weight 63.5 kg (140 lb) 09/23/2024 10:55 AM FLOOR COVERING LAYER Height 157.5 cm (5' 2) 09/23/2024 10:55 AM FLOOR COVERING LAYER Body Mass Index 25.61 09/23/2024 10:55 AM FLOOR COVERING LAYER Plan of Treatment Not on file Medical Devices Implanted Type Area Supervisor Ore Dressing Device Identifier Shelf Expiration Date Model / Serial / Lot Glidden [employer] [id number] Tecnis Protec Tecnis Itec 6mm 13mm 1 Piece Anterior Aspheric - [id number] - [id number] Implanted:Qty: 1 on 06/21/2018 by Mary Torrez MD at [facility] Right: Eye Glidden [employer] 09/28/2020 [id number] / [id number] / Insurance [facility] MEDICARE MEDICARE MEDICARE Advance Directives For more information, please contact: [phone] * Full Code (Latest Code Status on File) Date Activated Date Inactivated Comments 04/29/2020 8:42 AM 04/29/2020 2:33 PM * Full Code Date Activated Date Inactivated Comments 09/03/2019 9:40 AM 09/03/2019 5:00 PM Care Teams Alcoholic Counselor Relationship Specialty Start Date End Date Bunny Aviles MD [facility] [place] [address] PCP - General Family Medicine 10/30/23
--- OUTSIDE RECORDS SUMMARY | 2025-03-20 10:06 | XMS_ITS | Clinical Summary ---
Author Organization [facility] Address [address] [place] [address] Care Team Providers Care Boat Ride Operator Name Role Phone Bunny Aviles MD Primary Care Provider [phone] Allergies Active Allergy Reactions Criticality Noted Date [...] (03/26/2020): Added automatically from request for surgery [id number] Polyp of cecum 07/29/2019 Overview (07/29/2019): Added automatically from request for surgery [id number] Pseudophakia of both eyes 07/17/2015 Overview (07/02/2018): [...] (05/17/2018): Added automatically from request for surgery [id number] Pseudophakia of left eye 05/16/2018 Assessment & Plan (05/16/2018 12:16 PM CDT): Min PCF left eye (OS). Not vis significant. Implants in good position. Vision stable Encounters Date Type Department Care Team Description 01/15/2025 Telephone [facility] First Floor [address] [place] [address] Suyapa Saini, RMA Cancel from [...] on file Legal Sex Female 6:55 PM SALES OPERATIONS DIRECTOR Gender Identity Not on file Sexual Orientation Not on file Obstetrics History Last Filed Vital Signs Vital Sign Reading Time Taken Comments Blood Pressure 120/70 09/23/2024 10:55 AM SALES OPERATIONS DIRECTOR Pulse 82 09/23/2024 10:55 AM SALES OPERATIONS DIRECTOR Temperature 36.7 C (98 F) 02/20/2024 11:16 AM CDT Respiratory Rate 19 09/23/2024 10:55 AM SALES OPERATIONS DIRECTOR Oxygen Saturation 98% 09/23/2024 10:55 AM SALES OPERATIONS DIRECTOR Inhaled Oxygen Concentration - - Weight 63.5 kg (140 lb) 09/23/2024 10:55 AM SALES OPERATIONS DIRECTOR Height 157.5 cm (5' 2) 09/23/2024 10:55 AM SALES OPERATIONS DIRECTOR Body Mass Index 25.61 09/23/2024 10:55 AM SALES OPERATIONS DIRECTOR Plan of Treatment Health Maintenance Due Date [...] history exists Medical Devices Implanted Type Area Steeping Press Tender Device Identifier Shelf Expiration Date Model / Serial / Lot [employer] [id number] Tecnis Protec Tecnis Itec 6mm 13mm 1 Piece Anterior Aspheric - [id number] - [id number] Implanted:Qty: 1 on 06/21/2018 by Mary Torrez MD at [facility] Right: Eye [employer] 09/28/2020 [id number] / [id number] / Insurance [id number] [place] [address] MEDICARE MEDICARE MEDICARE Advance Directives For more information, please contact: [phone] * Full Code (Latest Code Status on File) Date Activated Date Inactivated Comments 04/29/2020 8:42 AM 04/29/2020 2:33 PM * Full Code Date Activated Date Inactivated Comments 09/03/2019 9:40 AM 09/03/2019 5:00 PM Care Teams Boat Ride Operator Relationship Specialty Start Date End Date Bunny Aviles MD [address] [facility] [place] [address] PCP - General Family Medicine 10/30/23
--- OUTSIDE RECORDS SUMMARY | 2025-03-20 10:06 | XMS_ITS | Clinical Summary ---
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
--- OUTSIDE RECORDS SUMMARY | 2025-03-20 10:06 | XMS_ITS | Encounter Summary ---
Author Organization [employer] Address [address] [place] [address] Care Team Providers Care Core Dropper Name Role Phone Irwin Gonzalez MD Primary Care Provider [phone] Encounter Details Date Type Department Care Team (Late st Contact Info) Description 07/25/2006 Outpatient Historical [facility] Aniket Case MD NO ADDRESS ON FILE Dysphagia (Primary Dx) Social History Tobacco Use Types Packs/Day Years Used Date Smoking Tobacco: Never Assessed Comments Unknown Sex and Gender Information Value Date Recorded Sex Assigned at Not on file Legal Sex Female 5:23 AM BRAND AMBASSADOR PROMOTIONAL MODEL Gender Identity Not on file Sexual Orientation Not on file documented as of this encounter Plan of Treatment Not on file documented as of this encounter Visit Diagnoses Diagnosis Dysphagia- Primary documented in this encounter Care Teams Core Dropper Relationship Specialty Start Date End Date Irwin oGnzalez MD [address] [address] PCP - General Internal Medicine 08/02/21 documented as of this encounter
--- OUTSIDE RECORDS SUMMARY | 2025-03-20 10:06 | XMS_ITS | Continuity of Care Document ---
Author Organization [facility] Address [address] [place] [address] [address] [place] [address] Phone Care Team Providers Care Manager Of Business Name Role Phone Unavailable Unavailable Unavailable Allergies, [...] Provider Providers Copied on Encounter [facility], [address] [place], [place] [address], [place], [place], [id number], [place] tel:[phone] [facility] blurry vision at near (chief complaint) borderline glaucoma (chief complaint) Open angle with borderline findings, low risk, bilateralPrese nce of intraocular lensVitreous degeneration, bilateral 8 No Information Family History Family Member Type Diagnosis Age At Onset No Information Payers Payer name Insurance type Covered green party ID Authoriza tion(s) [place]IC[place] KATELYNN [id number] [employer] CI [id number] Social History Type Description Quantity Date [...]
--- OUTSIDE RECORDS SUMMARY | 2025-03-20 10:06 | XMS_ITS | Continuity of Care Document ---
Author Organization [facility] Address [address] [place] [address] Phone Care Team Providers Care Trailer Truck Driver Name Role Phone Bunny Aviles MD Unavailable [...] Medicare Addendum PPPS, subseq visit OFFICE/OUTPATIENT VISIT, [facility] Advance Directives Directive Yes / No Effective Date File Name No Information Encounters Encounter Description Practice Location Reason(s) For Visit Diagnoses Date Provider Providers Copied on Encounter OFFICE/OUTPA TIENT VISIT, [facility], [address], [id number], tel:[phone] [facility] HLP (chief complaint) glucose1 (chief complaint) GERD1 (chief complaint) memory1 (chief complaint) diarrhea1 (chief complaint) OsteoporosisOther dysphagiaMemory lossLower abdominal painDiarrheaMixed hyperlipidemiaHyper glycemia 4 Stefan Hollis. [address] [facility] [place], [place], [id number] , [place]. tel:[phone] OFFICE/OUTPA TIENT VISIT, [facility], [address], [id number], tel:[phone] [facility] physical (chief complaint) Encounter for general adult medical exam w abnormal findingsOther dysphagiaOsteoporos isPain in right kneeMemory loss 3 Stefan Hollis. [address], [place], [place], [id number] , [place]. tel:[phone] Family History Family Member Type Diagnosis Age At Onset Mother Problem 90s natural cause Father Problem 80s old age related Sister Problem ALS 76 Mother Problem alzheimer Payers Payer name Insurance type Covered green party ID Authoriza tion(s) No Information Social [...] her dysphagia resolved after dilation . memory1 Pt has dementia, and she sees [...] appetite loss ,fever Pt denies any dizziness. physical Pt needs annual physical. Pt has [...] Mental Status Date Cognitive Assessment Orientation - [place] ed to time, place, person, situation.
[2025-03-20 10:17] LABS: Basophils Absolute Auto 0.1 K/mm3 (0.0-0.1); Basophils Percent Auto 1.3 % (0.2-1.2); Eosinophils Absolute Auto 0.1 K/mm3 (0-0.3); Eosinophils Percent Auto 1.9 % (0-4.4); Hematocrit 41.6 % (37.0-47.0); Hemoglobin 13.2 g/dL (12.0-15.0); Immature Granulocyte Absolute 0.03 K/mm3 (0.00-0.031); Immature Granulocyte Percent A 0.4 % (0-0.5); Lymphocytes Absolute Auto 1.96 K/mm3 (0.9-3.2); Lymphocytes Percent Auto 28.5 % (18.3-44.2); Mean Corpuscular HGB Conc 31.7 g/dl (32-36); Mean Corpuscular Hemoglobin 29.9 pg (26-34); Mean Corpuscular Volume 94.1 fl (80-100); Mean Platelet Volume 9.1 fl (7.4-10.4); Monocytes Absolute Auto 0.5 K/mm3 (0.1-0.6); Monocytes Percent Auto 6.8 % (2.6-8.5); Neutrophils Absolute Auto 4.2 K/mm3 (1.3-6.7); Neutrophils Percent Auto 61.1 % (45.5-73.1); Platelet Count Result 348 k/mm3 (150-375); Red Blood Count 4.42 M/mm3 (4.2-5.4); Red Cell Distribution Width 13.1 % (11.5-14.5); White Blood Count 6.9 K/mm3 (4.5-10.0)
[2025-03-20 10:28] LABS: Alanine Aminotransferase 17 U/L (6-35); Albumin Level 4.2 g/dL (3.5-5.1); Alkaline Phosphatase 121 U/L (38-126); Anion Gap 8 mmol/L (4-12); Aspartate Amino Transferase 28 U/L (14-36); Bilirubin,Total 0.3 mg/dL (0.2-1.3); Blood Urea Nitrogen 19 mg/dL (7-17); Calcium 9.4 mg/dL (8.4-10.2); Carbon Dioxide 27 mmol/L (22-30); Chloride 105 mmol/L (98-107); Cholesterol 216 mg/dL (0-200); Estimated Glomerular Filt Rate > 60; Glucose 78 mg/dL (65-110); HDL Direct 75 mg/dL; Potassium 3.9 mmol/L (3.4-5.0); Sodium 140 mmol/L (137-145); Total Protein 7.4 g/dL (6.3-8.2); Triglycerides 119 mg/dL (<150)
[2025-03-20 10:36] LABS: Hemoglobin A1C 5.5 % (<5.7)
[2025-03-20 10:39] LABS: LDL Cholesterol Direct 99 mg/dL
[2025-03-20 10:51] LABS: Free T4 Free Thyroxine 1.09 ng/dL (0.78-2.19); Vitamin D 25 Hydroxy 33.7 ng/mL
[2025-03-20 10:59] LABS: Thyroid Stimulating Hormone 0.675 uIU/mL (0.465-4.680)
[2025-03-20 11:38] LABS: Folic Acid > 20.0 ng/mL (2.76->20)
== END 2025-03-20 09:28 | disposition home or self-care (01) ==
PROVIDERS: PCP Internal Medicine; Visit Provider Internal Medicine
DX: E55.9 Vitamin D deficiency, unspecified (principal); E53.8 Deficiency of other specified B group vitamins; Z79.899 Other long term (current) drug therapy; Z13.220 Encounter for screening for lipoid disorders; Z13.1 Encounter for screening for diabetes mellitus; Z13.29 Encounter for screening for other suspected endocrine disorder
CPT/HCPCS: 36415; 80053; 80061; 82306; 82607; 82746; 83036; 84439; 84443; 85025

== ENCOUNTER 2025-03-26 14:18 | Outpatient (CLI) | payer MEDICARE, SELFPAY ==
--- NOTE | ~2025-03-26 | CT_ITS ---
Non-contrast CT scan of the Abdomen and Pelvis Clinical indication: Abnormality right blood cells Technique: 2.5 mm axial scans were obtained through the abdomen and pelvis without intravenous or or al contrast. Dose reduction technique was used on this scan by utilizing automated exposure control a nd iterative reconstruction technique. The dose-length product (DLP) was 632.81 mGy-cm. Findings: Images through the lung bases reveal no abnormalities. There is no evidence of renal or ureteral calculi. The kidneys and the ureters are nondilated. The liver, spleen, pancreas, and adrenals appear normal. Gallbladder absent. There is no aortic aneur ysm. There is no evidence of bowel obstruction. Images through the pelvis were performed. There is no evidence of ascites or lymphadenopathy. Urinary bladder unremarkable. Small calcified fibroid present. Impression: No significant abnormality seen. Reviewed, dictated and finalized at [facility]. Impression: No significant abnormality seen.
--- OUTSIDE RECORDS SUMMARY | 2025-03-26 16:18 | XMS_ITS | Clinical Summary ---
Author Organization [facility] Address [address] [place] [address] Care Team Providers Care Governor Assembler Hydraulic Name Role Phone Bunny Aviles MD Primary Care Provider [phone] Allergies Active Allergy Reactions Criticality Noted Date [...] (03/26/2020): Added automatically from request for surgery [id number] Polyp of cecum 07/29/2019 Overview (07/29/2019): Added automatically from request for surgery [id number] Pseudophakia of both eyes 07/17/2015 Overview (07/02/2018): [...] (05/17/2018): Added automatically from request for surgery [id number] Pseudophakia of left eye 05/16/2018 Assessment & Plan (05/16/2018 12:16 PM CDT): Min PCF left eye (OS). Not vis significant. Implants in good position. Vision stable Encounters Date Type Department Care Team Description 01/15/2025 Telephone [facility] First Floor [address] [place] [address] Suyapa Saini, RMA Cancel from [...] on file Legal Sex Female 6:55 PM CLINICAL TRANSPLANT COORDINATOR Gender Identity Not on file Sexual Orientation Not on file Obstetrics History Last Filed Vital Signs Vital Sign Reading Time Taken Comments Blood Pressure 120/70 09/23/2024 10:55 AM CLINICAL TRANSPLANT COORDINATOR Pulse 82 09/23/2024 10:55 AM CLINICAL TRANSPLANT COORDINATOR Temperature 36.7 C (98 F) 02/20/2024 11:16 AM CDT Respiratory Rate 19 09/23/2024 10:55 AM CLINICAL TRANSPLANT COORDINATOR Oxygen Saturation 98% 09/23/2024 10:55 AM CLINICAL TRANSPLANT COORDINATOR Inhaled Oxygen Concentration - - Weight 63.5 kg (140 lb) 09/23/2024 10:55 AM CLINICAL TRANSPLANT COORDINATOR Height 157.5 cm (5' 2) 09/23/2024 10:55 AM CLINICAL TRANSPLANT COORDINATOR Body Mass Index 25.61 09/23/2024 10:55 AM CLINICAL TRANSPLANT COORDINATOR Plan of Treatment Health Maintenance Due Date [...] history exists Medical Devices Implanted Type Area Misdraw Hand Device Identifier Shelf Expiration Date Model / Serial / Lot [place] [employer] [id number] Tecnis Protec Tecnis Itec 6mm 13mm 1 Piece Anterior Aspheric - [id number] - [id number] Implanted:Qty: 1 on 06/21/2018 by Mary Torrez MD at [facility] Right: Eye [place] [employer] 09/28/2020 [id number] / [id number] / Insurance [id number] [place] [address] MEDICARE MEDICARE MEDICARE Advance Directives For more information, please contact: [phone] * Full Code (Latest Code Status on File) Date Activated Date Inactivated Comments 04/29/2020 8:42 AM 04/29/2020 2:33 PM * Full Code Date Activated Date Inactivated Comments 09/03/2019 9:40 AM 09/03/2019 5:00 PM Care Teams Governor Assembler Hydraulic Relationship Specialty Start Date End Date Bunny Aviles MD [address] [facility] [place] [address] PCP - General Family Medicine 10/30/23
--- OUTSIDE RECORDS SUMMARY | 2025-03-26 16:19 | XMS_ITS | Encounter Summary ---
Author Organization [employer] Address [address] [place] [address] Care Team Providers Care Field Sales Representative Name Role Phone Irwin Gonzalez MD Primary [...] on file Legal Sex Female 5:23 AM SENIOR PRODUCT ENGINEER Gender Identity Not on file Sexual Orientation Not on file documented as of this encounter Plan of Treatment Not on file documented as of this encounter Visit Diagnoses Diagnosis Dysphagia- Primary documented in this encounter Care Teams Field Sales Representative Relationship Specialty Start Date End Date Irwin Gonzalez MD [address] [address] PCP - General Internal Medicine 08/02/21 documented as of this encounter
--- OUTSIDE RECORDS SUMMARY | 2025-03-26 16:19 | XMS_ITS | CONTINUITY OF CARE DOCUMENT ---
Author Name adriana wright Address Unknown Organization [facility] Address [address] [facility] [address] [place] [address] Phone [phone] Care Team Providers Care Nursing Student Name Role Phone Seda LIU, Enrique Unavailable Irwin Gonzalez MD Unavailable INSURANCE PROVIDERS Payer name Policy type / Coverage type [place] red alliance party ID [place] MEDICARE Medicare [id number] SELF PAY
--- OUTSIDE RECORDS SUMMARY | 2025-03-26 16:19 | XMS_ITS | Clinical Summary ---
Author Organization 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
--- OUTSIDE RECORDS SUMMARY | 2025-03-26 16:19 | XMS_ITS | Data Portability ---
Author Organization [facility] Address [address] [place] [address] Care Team Providers Care Stake Driver Name Role Phone DREW BELLA Primary Care Provider Assessment No assessment recorded. Plan of Treatment Reminders Order Date Submit Date Provider Last Modified By Organization Details Last Modified Time Details Appointments None recorded. Lab None recorded. Referral dermatologi st referral 2023 JAKI Mota MD (Dermatology) , [address] [facility] , [facility], [place], [address], 5 04:21:24 Procedures None recorded. Surgeries None recorded. Imaging None recorded. Medication Orders quetiapine 25 mg tablet 2023 024 [email or web address]92521, [address] , [place], [place], [id number], 4 12:53:46 Seroquel 25 mg tablet 2023 024 [facility] #99879, [address] , [place], [place], [id number], 4 14:53:19 Patient TargetsNo targets recorded. Patient InstructionsNo instructions recorded. 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 Living Skills Advisor Referral for D isorder of skin New onset appearance non pigmented facial nodules Referring Physician: Drew Bella, Internal Medicine, Encounter Date: 06/20/2024 Results Created Date Observation Date Name Description Value Unit Range Abnormal Flag Note LastModifiedBy Organization Detail LastModifiedTime 05/20/20 24 05/22/2024 Patho logy study [facility] [address] [place] [address] Teleph one: , extens ion [id number] Pathol ogy Report Surgic al Pathol ogy Report Name: KELLEE WAN en #: [id number] Age: [birth year] (Age: 83) Locati on: [facility] Sex: F Proced ure Date: Hospit al #: [id number] Date Receiv ed: Date Report ed: [...] and sign out [facility] [address] [place] [address]. FINAL DIAGNO SIS: Gallbl adder, cholec ystect devora: -Chron ic cholec ystiti s. -Marley lithia sis. Elec neno woo Signed Out CALLY CASE MD [facility] at[facility] Medic ine [address] [place] [address] Telep homer: [phone], exten yamilet 07 Patho logy Repor t Surgi sandy Patho logy Repor t Name: KELLEE LLOYD men #: [id number] Age: [birth year]9/[birth year] (Age: 83) Locat ion: [facility] Sex: F Proce dure Date: 2023 Hospi elida #: [id number] Date Recei connie: 2023 Date Repor [...] and sign out were perfo rmed at [facility], [address] [facility], [place] [address] . 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 -Chol elith iasis . Jenna ctron icall y Nicki d Out HARJIT CASE MD [facility] Not Available Not Available 02/19/2025 13:56:34 Result Notes None recorded. Problems Name Problem SNOMED Code Status Onset Date Resolution Date Notes Provider Name and Address Organization Details Recorded Time Primary degenerative dementia of the Alzheimer type, senile onset 469956254 Active 2023 Drew Bella MD Attn: Tasneem lucas,[address] [facility], [place], [address], [facility] 4 14:59:54 Median fissure of lip 593705734 Active 2023 Drew Bella MD Attn: Tasneem lucas,[address] [facility], [place], [address], [facility] - [facility] 4 15:02:13 Agitation due to dementia 739013509 Active 2023 Drew Bella MD Attn: Tasneem lucas,[address] [facility], [place], [address], [facility] 4 14:50:40 Disorder of skin 33426531 Active 2023 Drew Bella MD Attn: Tasneem lucas,[address] [facility], [place], [address], [facility] SI 4 12:47:47 Problem Notes None recorded. Procedures Surgical History Date Name Laterality Status Provider Name and Address Organization Details Recorded Time Appendectomy completed Yoni Walker MA [facility] 06/20/2024 12:10:35 Imaging Results None recorded. [...] Address Organization Details Last Updated DateTime 4 45967.5 2 g 25 kg/m2 160.02 cm 98 % 98 % 98 [degF] 87 /min 152 mm[Hg] 82 mm[Hg] Mariola Barrett MA [facility] 4 14:25:55 Date Recorded Body height Body mass index (BMI) Body weight Heart rate Oxygen saturation Oxygen saturation in Arterial blood by Pulse oximetry Systolic blood pressure Diastolic blood pressure Provider Name and Address Organization Details Last Updated DateTime 4 160.02 cm 25 kg/m2 30698.5 2 g 87 /min 98 % 98 % 154 mm[Hg] 78 mm[Hg] Mariola Barrett MA [facility] SI 4 12:47:34 Date Recorded Body height Body mass index (BMI) Body weight Heart rate Oxygen saturation Oxygen saturation in Arterial blood by Pulse oximetry Systolic blood pressure Diastolic blood pressure Provider Name and Address Organization Details Last Updated DateTime 4 160.02 cm 24.4 kg/m2 46311.6 7 g 82 /min 95 % 95 % 111 mm[Hg] 71 mm[Hg] Yoni Walker [place] 12:18:20 Social History Question Answer Notes LastModified by Organizat ion Details LastModified Time Tobacco Smoking Status Never Smoker Mariola Barrett MA null, [facility] 01/30/2024 14:23:21 Do You Have An [...] anxious, or unable to sleep at night)? [id number] Information not available 06/20/2024 Family History Relationship Description Onset Age of this Age Resolved Age Notes LastModified by Organization Details LastModified Time Father No current problems or disability [email or web address] Not available 01/29 14:23:30 Mother No current problems or disability [email or web address] Not available 01/29 14:23:30 Medical History Condition Response Coronary Artery Disease N Other Y High Blood Pressure N Atrial Fibrillation N Thyroid Problems N Kidney or Bladder Problems N GI Problems N Depression N COPD N Blood Clots N Have you had a mammogram in the last yea r? N Skin Problems N Anemia N Heart Attack ([place]) N Diabetes N Anxiety Disorder N Muscle, [...] PF 4 completed Yoni Walker MA [place], [place] - [facility] 06/20/2024 12:16:40 RSV, bivalent, protein subunit RSVpreF, diluent reconstituted, 0.5 mL, PF 4 completed CARLIE Leahy, [place] - [facility] 06/20/2024 12:16:41 COVID-19, mRNA, LNP-S, PF, maxim-sucrose, 30 mcg/0.3 mL 4 completed Yoni Walker MA [place], [place] - [facility] 06/20/2024 12:16:41 Past Encounters Encounter ID Performer Location Encounter Start Date Encounter Closed Date Diagnosis/Indication Diagnosis SNOMED-CT Code Diagnosis ICD10 Code Diagnosis Note [id number] MD Merline Gentile (Adult Med) [address] [place] [phone] 01/30/2024 13:42:07 01/31/2024 12:13:51 Primary degenerative dementia of the Alzheimer type, senile onset 210956036 G30.1 F/U neurologis t Median fissure of lip 40 3175866 K13.0 Continue dental cream [id number] MD Merline Gentile (Adult Med) [address] [place] [id number] 03/26/2024 12:18:25 03/28/2024 14:52:01 Agitation due to dementia 064347733 F03.235 [id number] MD Merline Gentile (Adult Med) [address] [place] [phone] 06/20/2024 11:51:02 06/21/2024 11:36:36 Disorder of skin 11189945 L98.9 Agitation due to dementia 357915760 F03.911 Will increase seroquel Health Concerns Section Related Observation LastModified by Organization Detai ls LastModified Time None Recorded Concern Status LastModified by Organization Details LastModified Time None Recorded Advance Directives Directive Y: Payers Insurance Date Sequence Insurance Name Policy Number Policy Berrios Covered Member ID Berrios Member ID Guarantor Name 03/26/2024 2 [place] Kellee [place] [id number] Kellee [place] 06/17/2024 [place] Kellee [place] [id number] [place] 06/21/2024 2 [facility] [employer] - PLAN F (MEDICARE SUPPLEMENT) Kellee [place] [id number] Kellee [place] 06/17/2024 1 [place] [id number] [place] 03/26/2024 1 [place] [id number] Kellee [place] Notes Date Note Type Note Provider Name and Address Organization Details Recorded Time 01/30/2024 text/html Changing PCP Drew Bella MD Attn: Accounting,[address] [facility], [place], [address], [facility] 01/30/2024 15:05:52 03/26/2024 text/html Here with junior libby Mr Rosario because of stress that is apparent in the evening. This appears to be increasing in the past couple months. Aricept had been stopped because of side effect Drew Bella MD Attn: Accounting,[address] [facility], [place], [address], [facility] 03/26/2024 14:53:56 06/20/2024 text/html Here with her . Her is concerned about her restlesness prior to going to bed. Her is also concerned about facial skin nodules Appetite appears good Drew Bella MD Attn: Accounting,[address] [facility], [place], [address], [facility] 06/20/2024 12:58:50 OBGyn Episode No OBEpisode recorded.
--- OUTSIDE RECORDS SUMMARY | 2025-03-26 16:19 | XMS_ITS | Referral Summary ---
Author Organization [facility] Address [address] [place] [address] Care Team Providers Care Welfare Project Manager Name Role Phone Bunny Aviles MD Primary Care Provider Encounters Date Type Department Care Team Description 01/15/2025 Telephone [facility] First Floor [address] [place] [address] Suyapa Saini, YUN Cancel from [...] (03/26/2020): Added automatically from request for surgery [id number] Polyp of cecum 07/29/2019 Overview (07/29/2019): Added automatically from request for surgery [id number] Pseudophakia of both eyes 07/17/2015 Overview (07/02/2018): [...] (05/17/2018): Added automatically from request for surgery [id number] Pseudophakia of left eye 05/16/2018 Assessment & [...] on file Legal Sex Female 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 Gender Identity Not on file Sexual Orientation Not on file Last Filed Vital Signs Vital Sign Reading Time Taken Comments Blood Pressure 120/70 09/23/2024 10:55 AM GARAGE WORKER Pulse 82 09/23/2024 10:55 AM GARAGE WORKER Temperature 36.7 C (98 F) 02/20/2024 11:16 AM CDT Respiratory Rate 19 09/23/2024 10:55 AM GARAGE WORKER Oxygen Saturation 98% 09/23/2024 10:55 AM GARAGE WORKER Inhaled Oxygen Concentration - - Weight 63.5 kg (140 lb) 09/23/2024 10:55 AM GARAGE WORKER Height 157.5 cm (5' 2) 09/23/2024 10:55 AM GARAGE WORKER Body Mass Index 25.61 09/23/2024 10:55 AM GARAGE WORKER Plan of Treatment Not on file Medical Devices Implanted Type Area Accounting Supervisor Device Identifier Shelf Expiration Date Model / Serial / Lot [place] [employer] [id number] Tecnis Protec Tecnis Itec 6mm 13mm 1 Piece Anterior Aspheric - [id number] - [id number] Implanted:Qty: 1 on 06/21/2018 by Mary Torrez MD at [facility] Right: Eye [place] [employer] 09/28/2020 [id number] / [id number] / Insurance [facility] MEDICARE MEDICARE MEDICARE Advance Directives For more information, please contact: [phone] * Full Code (Latest Code Status on File) Date Activated Date Inactivated Comments 04/29/2020 8:42 AM 04/29/2020 2:33 PM * Full Code Date Activated Date Inactivated Comments 09/03/2019 9:40 AM 09/03/2019 5:00 PM Care Teams Welfare Project Manager Relationship Specialty Start Date End Date Bunny Aviles MD [facility] [place] [address] PCP - General Family Medicine 10/30/23
--- OUTSIDE RECORDS SUMMARY | 2025-03-26 16:19 | XMS_ITS | Encounter Summary ---
Author Organization [facility] Address 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
--- OUTSIDE RECORDS SUMMARY | 2025-03-26 16:19 | XMS_ITS | Continuity of Care Document ---
Author Organization [facility] Address [address] [place] [address] Phone Care Team Providers Care Senior Clinical Sas Programmer Name Role Phone Bunny Aviles MD Unavailable [...] Medicare Addendum PPPS, subseq visit OFFICE/OUTPATIENT VISIT, [facility] Advance Directives Directive Yes / No Effective Date File Name No Information Encounters Encounter Description Practice Location Reason(s) For Visit Diagnoses Date Provider Providers Copied on Encounter OFFICE/OUTPA TIENT VISIT, [facility], [address], [address], tel:[phone] [facility] HLP (chief complaint) glucose1 (chief complaint) GERD1 (chief complaint) memory1 (chief complaint) diarrhea1 (chief complaint) OsteoporosisOther dysphagiaMemory lossLower abdominal painDiarrheaMixed hyperlipidemiaHyper glycemia 4 Stefan Hollis. [address] [facility] [place], [id number] , [place]. tel:[phone] OFFICE/OUTPA TIENT VISIT, [facility], [address] [place], [place], [id number], tel:[phone] [facility] physical (chief complaint) Encounter for general adult medical exam w abnormal findingsOther dysphagiaOsteoporos isPain in right kneeMemory loss 3 Stefan Hollis. [address], [place], [place], [address] , [place]. tel:[phone] Family History Family Member Type Diagnosis Age At Onset Mother Problem 90s natural cause Father Problem 80s old age related Sister Problem ALS 76 Mother Problem alzheimer Payers Payer name Insurance type Covered constitution party ID Authoriza tion(s) No Information Social [...] Mental Status Date Cognitive Assessment Orientation - Martin ed to time, place, person, situation.
--- OUTSIDE RECORDS SUMMARY | 2025-03-26 16:19 | XMS_ITS | Continuity of Care Document ---
Author Organization [facility] Address [address] [place] [address] [address] [place] [address] Phone Care Team Providers Care Manager Multicultural Name Role Phone Unavailable Unavailable Unavailable Allergies, [...] Provider Providers Copied on Encounter [facility], [address] [place], [place] [address], [place], [place], [id number], [place] tel:[phone] [facility] blurry vision at near (chief complaint) borderline glaucoma (chief complaint) Open angle with borderline findings, low risk, bilateralPrese nce of intraocular lensVitreous degeneration, bilateral 8 No Information Family History Family Member Type Diagnosis Age At Onset No Information Payers Payer name Insurance type Covered democrat ID Authoriza tion(s) [place] KATELYNN [id number] [employer] CI [id number] Social History Type Description Quantity Date [...]
== END 2025-03-26 14:19 | disposition home or self-care (01) ==
PROVIDERS: PCP Internal Medicine; Visit Provider Internal Medicine
DX: R71.8 Other abnormality of red blood cells (principal); R32 Unspecified urinary incontinence
CPT/HCPCS: 74176

== ENCOUNTER 2025-03-29 09:52 | Emergency (ER) | payer MEDICARE, SELFPAY ==
[2025-03-29 10:57] VITALS: BP 132/57; PULSE 79; RESP 16; TEMP 36.2; O2SAT 100
--- NOTE | 2025-03-29 11:42 | ED_ITS ---
HPI - General Adult General Chief complaint: Skin/Abscess/Foreign Body Stated complaint: fungal infection, large toe nail Time Seen by Provider: 03/29/25 11:17 History of Present Illness HPI narrative: This is an 84-year-old female presenting ED for a painful toenail. Patient believes that she had a fungal infection in her nail was starting to raise and she believes it might fall off. It is bothering her because it is catching on her socks and causing her pain. They have not seen her primary care physician for this. She has no other symptoms. Related Data Home Medications ?Medication ?Instructions ?Recorded ?Confirmed ?Last Taken ?Type cholecalciferol (vitamin D3) 50 50 mcg PO DAILY 03/20/25 Unknown History mcg (2,000 unit) capsule mecobalamin (vitamin B12) 1,000 1,000 mcg PO DAILY 03/20/25 Unknown History mcg chewable tablet Allergies Allergy/AdvReac Type Severity Reaction Status Date / Time Sulfa (Sulfonamide Allergy Hives Verified 03/29/25 11:08 Antibiotics) [facility] Past Medical History Medical History Follow up Schatzki's ring Hiatal hernia Dementia DJD (degenerative joint disease) of knee Encounter to establish care On skilled nursing drug therapy BMI 25.0-25.9,adult Dysphagia Colonoscopy planned 07/26/2019 09/03/2019- Removed polyp Osteoporosis GERD (gastroesophageal reflux disease) Arthritis Family History Family History Father Hypertension Heart disease Mother Alzheimer disease Sibling Breast cancer Grandparent Hypertension Social History Social History Smoking status: Never smoker Second hand tobacco smoke exposure: No Alcohol intake: never Substance use: never Substance use type: does not use Do You Feel Safe in your Home?: Yes Lack of Transportation: No Lack of Food: Never True Current Housing: I Have Housing Concerned About Future Housing: No Difficulty Paying Gas/Electric Bills: No Difficulty Paying for Meds: No Currently Unemployed: No Difficulty w/ Childcare or Family Care: No Living arrangements: with family Gender identity (if verbalized by the patient): Female Spiritual care concerns: No Exam Narrative: APPEARANCE: No apparent distress. Head: atraumatic. EYES: EOMI, NOSE: Atraumatic NECK: Trachea midline RESPIRATORY: No increased rate of breathing CARDIOVASCULAR: RRR, ABDOMINAL: Non-distended MUSCULOSKELETAl: Left toe shows a raised great toenail. No signs of bacterial infection. NEURO: Alert. Moving 4/4 extremities SKIN:: Warm, dry. Normal color PSYCHIATRIC: Normal affect Course Vital Signs Vital signs: Vital Signs Temperature 97.2 F L 03/29/25 10:57 Pulse Rate 79 03/29/25 10:57 Respiratory Rate 16 03/29/25 10:57 Blood Pressure 132/57 L 03/29/25 10:57 Pulse Oximetry 100 03/29/25 10:57 Temperature 97.2 F L 03/29/25 10:57 Pulse Rate 79 03/29/25 10:57 Respiratory Rate 16 03/29/25 10:57 Blood Pressure 132/57 L 03/29/25 10:57 Pulse Oximetry 100 03/29/25 10:57 Medical Decision Making MDM Narrative Medical decision making narrative: -Course: 84-year-old female presenting with a injured toenail. No signs of bacterial infection. No concerning findings on physical exam. The patient's is hoping that I would remove her toenail. This is not emergent and be performed by primary care physician or law firm administrator. Patient's is frustrated whenever not removed her toenail. Patient given primary care follow- up. Vital Signs Vital Signs: Vital Signs Temperature 97.2 F L 03/29/25 10:57 Pulse Rate 79 03/29/25 10:57 Respiratory Rate 16 03/29/25 10:57 Blood Pressure 132/57 L 03/29/25 10:57 Pulse Oximetry 100 03/29/25 10:57 Temperature 97.2 F L 03/29/25 10:57 Pulse Rate 79 03/29/25 10:57 Respiratory Rate 16 03/29/25 10:57 Blood Pressure 132/57 L 03/29/25 10:57 Pulse Oximetry 100 03/29/25 10:57 Discharge Plan Discharge Clinical Impression: Toenail fungus Patient Disposition: Home Condition: Stable Instructions: Antibiotic Form Additional Instructions: Please follow-up with your primary care physician or a law firm administrator have your toenail removed. Patient Language: Thai Prescriptions: No Action nitrofurantoin monohyd/m-cryst [Macrobid] 100 mg capsule 100 mg PO Q12H 10 Days Qty: 20 0RF Rx Instructions: must administer with a meal/food memantine 10 mg tablet 10 mg PO BID Qty: 60 2RF quetiapine [Seroquel] 25 mg tablet 25 mg PO BID Qty: 60 2RF cholecalciferol (vitamin D3) 50 mcg (2,000 unit) capsule 50 mcg PO DAILY mecobalamin (vitamin B12) 1,000 mcg tablet,chewable 1,000 mcg PO DAILY solifenacin [Vesicare] 5 mg tablet 5 mg PO .HS Qty: 30 1RF Follow-up/Referrals: Humberto Ledesma MD [Primary Care Provider] -
== END 2025-03-29 11:59 | disposition home or self-care (01) ==
PROVIDERS: Emergency Provider Emergency Medicine; PCP Internal Medicine
DX: B35.1 Tinea unguium (principal); F03.90 Unspecified dementia, unspecified severity, without behavioral disturbance, psychotic disturbance, mood disturbance, and anxiety; K21.9 Gastro-esophageal reflux disease without esophagitis; K44.9 Diaphragmatic hernia without obstruction or gangrene; M81.0 Age-related osteoporosis without current pathological fracture; M19.90 Unspecified osteoarthritis, unspecified site; Z79.899 Other long term (current) drug therapy
CPT/HCPCS: 99281

== ENCOUNTER 2025-04-20 09:53 | Emergency (ER) | payer MEDICARE, SELFPAY ==
[2025-04-20] VITALS (7 sets, daily range): BP systolic 110–138; BP diastolic 53–62; PULSE 77–84; RESP 15–23; TEMP 36.4; O2SAT 99–100
--- NOTE | ~2025-04-20 | XR_ITS ---
Clinical Indication: Chest pain PA and lateral views of the chest: Comparison: 09/28/2024 Findings: The lungs are clear, without evidence of focal consolidation or pleural effusion. Cardiome diastinal silhouette is within normal limits. Bones and soft tissues are unremarkable. Impression: Normal chest. Reviewed, dictated and finalized at location . Impression: Normal chest.
--- NOTE | 2025-04-20 09:54 | ECG_ITS ---
Test Date: 2025-04-20 10:02:28 Measurements Intervals Egan Rate: 76 P: 64 MO: 166 QRS: 76 QRSD: 76 T: 56 QT: 375 QTc: 424 Interpretive Statements SINUS RHYTHM NORMAL ECG No previous ECG available for comparison Electronically Signed On 04-20-2025 11:41:19 CDT by Edinson Roy M.D.
--- OUTSIDE RECORDS SUMMARY | 2025-04-20 09:55 | XMS_ITS | Continuity of Care Document ---
Author Organization [facility] Address [address] [place] [address] [address] [place] [address] Phone Care Team Providers Care Hairmasters Manager Name Role Phone Unavailable Unavailable Unavailable [...] Provider Providers Copied on Encounter [facility], [address] [place], [place] [address], [place], [place], [id number], [place] tel:[phone] [facility] blurry vision at near (chief complaint) borderline glaucoma (chief complaint) Open angle with borderline findings, low risk, bilateralPrese nce of intraocular lensVitreous degeneration, bilateral 8 No Information Family History Family Member Type Diagnosis Age At Onset No Information Payers Payer name Insurance type Covered constitution party ID Authoriza tion(s) [place] MB [id number] [employer] CI [id number] Social History Type Description Quantity Date [...]
--- OUTSIDE RECORDS SUMMARY | 2025-04-20 09:55 | XMS_ITS | Continuity of Care Document ---
Author Organization [facility] Address [address] [facility] [place] [address] Phone Care Team Providers Care Internet Application Developer Name Role Phone Bunny Aviles MD Unavailable [...] Addendum PPPS, subseq visit OFFICE/OUTPATIENT VISIT, [facility] Advance Directives Directive Yes / No Effective Date File Name No Information Encounters Encounter Description Practice Location Reason(s) For Visit Diagnoses Date Provider Providers Copied on Encounter OFFICE/OUTPA TIENT VISIT, [facility], [address] [place], [id number], tel:[phone] [facility] HLP (chief complaint) glucose1 (chief complaint) GERD1 (chief complaint) memory1 (chief complaint) diarrhea1 (chief complaint) OsteoporosisOther dysphagiaMemory lossLower abdominal painDiarrheaMixed hyperlipidemiaHyper glycemia 4 Stefan Hollis. [address] [facility] [place], [address] , [place]. tel:[phone] OFFICE/OUTPA TIENT VISIT, [facility], [address], [place], [address], tel:[phone] [facility] physical (chief complaint) Encounter for general adult medical exam w abnormal findingsOther dysphagiaOsteoporos isPain in right kneeMemory loss 3 Stefan Hollis. [address], [place], [place], [address] , [place]. tel:[phone] Family History Family Member Type Diagnosis Age [...] Mental Status Date Cognitive Assessment Orientation - [place] ed to time, place, person, situation.
--- OUTSIDE RECORDS SUMMARY | 2025-04-20 09:55 | XMS_ITS | Referral Summary ---
Author Organization [facility] Address [address] [place] [address] Care Team Providers Care Algebraist Name Role Phone Bunny Aviles MD Primary Care Provider [phone] Allergies Active Allergy Reactions Criticality Noted Date [...] (03/26/2020): Added automatically from request for surgery [id number] Polyp of cecum 07/29/2019 Overview (07/29/2019): Added automatically from request for surgery [id number] Pseudophakia of both eyes 07/17/2015 Overview (07/02/2018): [...] (05/17/2018): Added automatically from request for surgery [id number] Pseudophakia of left eye 05/16/2018 Assessment & [...] on file Legal Sex Female 6:55 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 Gender Identity Not on file Sexual Orientation Not on file Last Filed Vital Signs Vital Sign Reading Time Taken Comments Blood Pressure 120/70 09/23/2024 10:55 AM RESTORATIVE ART EMBALMER Pulse 82 09/23/2024 10:55 AM RESTORATIVE ART EMBALMER Temperature 36.7 C (98 F) 02/20/2024 11:16 AM CDT Respiratory Rate 19 09/23/2024 10:55 AM RESTORATIVE ART EMBALMER Oxygen Saturation 98% 09/23/2024 10:55 AM RESTORATIVE ART EMBALMER Inhaled Oxygen Concentration - - Weight 63.5 kg (140 lb) 09/23/2024 10:55 AM RESTORATIVE ART EMBALMER Height 157.5 cm (5' 2) 09/23/2024 10:55 AM RESTORATIVE ART EMBALMER Body Mass Index 25.61 09/23/2024 10:55 AM RESTORATIVE ART EMBALMER Plan of Treatment Not on file Medical Devices Implanted Type Area Computer Assistant Device Identifier Shelf Expiration Date Model / Serial / Lot [place] [employer] [id number] Tecbárbara Protec Tecnis Itec 6mm 13mm 1 Piece Anterior Aspheric - [id number] - [id number] Implanted:Qty: 1 on 06/21/2018 by Mary Torrez MD at [facility] Right: Eye [employer] 09/28/2020 [id number] / [id number] / Insurance MEDICARE MEDICARE MEDICARE Advance Directives For more information, please contact: [phone] * Full Code (Latest Code Status on File) Date Activated Date Inactivated Comments 04/29/2020 8:42 AM 04/29/2020 2:33 PM * Full Code Date Activated Date Inactivated Comments 09/03/2019 9:40 AM 09/03/2019 5:00 PM Care Teams Algebraist Relationship Specialty Start Date End Date Bunny Aviles MD [address] [place] [address] PCP - General Family Medicine 10/30/23
--- OUTSIDE RECORDS SUMMARY | 2025-04-20 09:55 | XMS_ITS | Encounter Summary ---
Author Organization [facility] Address 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
--- OUTSIDE RECORDS SUMMARY | 2025-04-20 09:55 | XMS_ITS | Encounter Summary ---
Author Organization [facility] Address 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
--- OUTSIDE RECORDS SUMMARY | 2025-04-20 09:55 | XMS_ITS | Clinical Summary ---
Author Organization [facility] Address [address] [place] [address] Care Team Providers Care Business Support Specialist Name Role Phone Bunny Aviles MD Primary Care Provider [phone] Allergies Active Allergy Reactions Criticality Noted Date [...] (03/26/2020): Added automatically from request for surgery [id number] Polyp of cecum 07/29/2019 Overview (07/29/2019): Added automatically from request for surgery [id number] Pseudophakia of both eyes 07/17/2015 Overview (07/02/2018): [...] (05/17/2018): Added automatically from request for surgery [id number] Pseudophakia of left eye 05/16/2018 Assessment & Plan (05/16/2018 12:16 PM CDT): Min PCF left eye (OS). Not vis significant. Implants in good position. Vision stable Surgical History Surgery Date Site/Laterality Comments CATARACT [...] on file Legal Sex Female 6:55 PM QUALITY COMPLIANCE CONSULTANT Gender Identity Not on file Sexual Orientation Not on file Obstetrics History Last Filed Vital Signs Vital Sign Reading Time Taken Comments Blood Pressure 120/70 09/23/2024 10:55 AM QUALITY COMPLIANCE CONSULTANT Pulse 82 09/23/2024 10:55 AM QUALITY COMPLIANCE CONSULTANT Temperature 36.7 C (98 F) 02/20/2024 11:16 AM CDT Respiratory Rate 19 09/23/2024 10:55 AM QUALITY COMPLIANCE CONSULTANT Oxygen Saturation 98% 09/23/2024 10:55 AM QUALITY COMPLIANCE CONSULTANT Inhaled Oxygen Concentration - - Weight 63.5 kg (140 lb) 09/23/2024 10:55 AM QUALITY COMPLIANCE CONSULTANT Height 157.5 cm (5' 2) 09/23/2024 10:55 AM QUALITY COMPLIANCE CONSULTANT Body Mass Index 25.61 09/23/2024 10:55 AM QUALITY COMPLIANCE CONSULTANT Plan of Treatment Health Maintenance Due Date Last Done Comments Depression Screening 1942 DTaP/Tdap/Td Vaccine (1 - Tdap) 1953 Hepatitis B Screening 1960 Well Visit 65+ 2007 Zoster Vaccine (2 of 3) 04/09/2013 02/12/2013 Osteoporosis Screening-Bone Density Scan 02/09/2014 02/10/2012, 02/10/2012 Fall Risk Assessment 04/29/2021 04/29/2020 Covid-19 Vaccine (2023-11 5 season) 2024 06/20/2022, 01/10/2022, 07/13/2021, Additional history exists Influenza Vaccine (#1) 2025 , 06/20/2022, 07/07/2021, Additional history exists Pneumococcal vaccine 65+ Completed 019, 07/26/2017, 07/24/2017 Medical Devices Implanted Type Area End Maker Device Identifier Shelf Expiration Date Model / Serial / Lot [employer] [id number] Tecnis Protec Tecnis Itec 6mm 13mm 1 Piece Anterior Aspheric - [id number] - [id number] Implanted:Qty: 1 on 06/21/2018 by Mary Torrez MD at [facility] Right: Eye [employer] 09/28/2020 [id number] / [id number] / Insurance [employer] MEDICARE MEDICARE MEDICARE Advance Directives For more information, please contact: [phone] * Full Code (Latest Code Status on File) Date Activated Date Inactivated Comments 04/29/2020 8:42 AM 04/29/2020 2:33 PM * Full Code Date Activated Date Inactivated Comments 09/03/2019 9:40 AM 09/03/2019 5:00 PM Care Teams Business Support Specialist Relationship Specialty Start Date End Date Bunny Aviles MD [address] [place] [address] PCP - General Family Medicine 10/30/23
--- OUTSIDE RECORDS SUMMARY | 2025-04-20 09:56 | XMS_ITS | Clinical Summary ---
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
--- OUTSIDE RECORDS SUMMARY | 2025-04-20 09:56 | XMS_ITS | Data Portability ---
Author Organization [facility] Address [address] [place] [address] Assessment No assessment recorded. Plan of Treatment Reminders Order Date Submit Date Provider Last Modified By Organization Details Last Modified Time Details Appointments None recorded. Lab None recorded. Referral dermatologi st referral 2023 024 becky Mota MD (Dermatology) , [address] [facility] , [facility], [place], [address], 5 14:34:04 Procedures None recorded. Surgeries None recorded. Imaging None recorded. Medication Orders quetiapine 25 mg tablet 2023 024 [id number], [address] , [place], [place], [id number], 4 12:53:46 Seroquel 25 mg tablet 2023 024 [id number], [address] , [place], [place], [id number], 4 14:53:19 Patient TargetsNo targets recorded. Patient InstructionsNo instructions recorded. 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 Alemite Operator Referral for D isorder of skin New onset appearance non pigmented facial nodules Referring Physician: Drew Bella, Internal Medicine, Encounter Date: 06/20/2024 Results Created Date Observation Date Name Description Value Unit Range Abnormal Flag Note LastModifiedBy Organization Detail LastModifiedTime 05/20/20 24 05/22/2024 Patho logy study pathology study [facility] Dep[facility] ment of Labora tory Medici ne [address] [place] [address] Teleph one: [phone], extens ion [phone] Pathol ogy Report Surgic al Pathol ogy Report Name: KELLEE WAN en #: [id number] Age: [birth year] (Age: 83) Locati on: [facility] Sex: F Proced ure Date: Hospit al #: [id number] Date Receiv ed: Date Report ed: [...] and sign out were perfor med at [facility], [address] [place] [address]. FINAL DIAGNO SIS: Gallbl adder, cholec ystect devora: -Chron ic cholec ystiti s. -Marley lithia sis. Elec tronic ally Signed Out CALLY CASE MD PATHO LOGY [facility] elida Depar tment of Labor atory Medic ine [address] [facility] [place] [address] Telep homer: [phone], exten yamilet 07 Patho logy Repor t Surgi sandy Patho logy Repor t Name: KELLEE LLOYD Speckandice men #: [id number] Age: 1209/19 (Age: 83) Locat ion: [facility] Sex: F Proce dure Date: 2023 Hospi elida #: [id number] Date Recei connie: 2023 Date Repor [...] and sign out were perfo rmed at [facility], [address] [facility], [place] [address] . 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 -Chol elith iasis . Jenna ctron icall y Nicki d Out HARJIT CASE MD [facility] Not Available Not Available 02/19/2025 13:56:34 Result Notes None recorded. Problems Name Problem SNOMED Code Status Onset Date Resolution Date Notes Provider Name and Address Organization Details Recorded Time Primary degenerative dementia of the Alzheimer type, senile onset 270498863 Active 2023 Drew Bella MD Attn: Tasneem lucas,[address] [facility], [place], [address], [facility] - SI 4 14:59:54 Median fissure of lip 192530006 Active 2023 Drew Bella MD Attn: Yoselinnew lucas,[address] [facility], [place], [address], [facility] - SI 4 15:02:13 Agitation due to dementia 659759834 Active 2023 Drew Bella MD Attn: Tasneem lucas,[address] [facility], [place], [address], [facility] - [facility] 4 14:50:40 Disorder of skin 94461542 Active 2023 Drew Bella MD Attn: Yoselinnew lucas,[address] [facility], [place], [address], [facility] - [facility] 4 12:47:47 Problem Notes None recorded. Procedures Surgical History Date Name Laterality Status Provider Name and Address Organization Details Recorded Time Appendectomy completed Yoni Walker MA [facility] 06/20/2024 12:10:35 Imaging Results None recorded. Procedure [...] Pulse oximetry Body temperature Heart rate Systolic And Diastolic Provider Name and Address Organization Details Last Updated DateTime 4 16370.5 2 g 25 kg/m2 160.02 cm 98 % 98 % 98 [degF] 87 /min 152/82 mm[Hg] Mariola Barrett MA [facility] SI 4 14:25:55 Date Recorded Body height Body mass index (BMI) Body weight Heart rate Oxygen saturation Oxygen saturation in Arterial blood by Pulse oximetry Systolic And Diastolic Provider Name and Address Organization Details Last Updated DateTime 4 160.02 cm 25 kg/m2 51963.5 2 g 87 /min 98 % 98 % 154/78 mm[Hg] Mariola Barrett MA [facility] SI 4 12:47:34 Date Recorded Body height Body mass index (BMI) Body weight Heart rate Oxygen saturation Oxygen saturation in Arterial blood by Pulse oximetry Systolic And Diastolic Provider Name and Address Organization Details Last Updated DateTime 4 160.02 cm 24.4 kg/m2 15608.6 7 g 82 /min 95 % 95 % 111/71 mm[Hg] Yoni Walker MA [place] - [facility] 4 12:18:20 Social History Question Answer Notes LastModified by Organizat ion Details LastModified Time Tobacco Smoking Status Never Smoker Mariola Barrett MA null, [place] - [facility] 01/30/2024 14:23:21 Do You Have An Advance [...] Functional Status Question Answer Note LastModified by [employer] ion Details LastModified Time Do you use [...] anxious, or unable to sleep at night)? [id number] Information not available 06/20/2024 Family History Relationship [...] Skin Problems N Anemia N Heart Attack (HI) N Diabetes N Anxiety Disorder N Muscle, [...] 12:07:51 Influenza, high-dose, quadrivalent, PF 0 completed Yoni Walker [place] null, [place] - [...] PF 4 completed Yoni Walker MA mery, [place] - [facility] 06/20/2024 12:16:41 COVID-19, mRNA, LNP-S, PF, maxim-sucrose, 30 mcg/0.3 mL 4 completed Yoni Walker MA [place], [place] - [facility] 06/20/2024 12:16:41 Past Encounters Encounter ID Performer Location Encounter Start Date Encounter Closed Date Diagnosis/Indication Diagnosis SNOMED-CT Code Diagnosis ICD10 Code Diagnosis Note [id number] Drew Bella MD [facility] (Adult Med) [address] [place] [phone] 01/30/2024 13:42:07 01/31/2024 12:13:51 Primary degenerative dementia of the Alzheimer type, senile onset 005355841 G30.1 F/U neurologis t Median fissure of lip 40 7728127 K13.0 Continue dental cream [id number] Drew Bella MD [facility] (Adult Med) [address] [place] [phone] 03/26/2024 12:18:25 03/28/2024 14:52:01 Agitation due to dementia 692227794 F03.041 [id number] Drew Bella MD [facility] (Adult Med) [address] [place] [phone] 06/20/2024 11:51:02 06/21/2024 11:36:36 Disorder of skin 70566046 L98.9 Agitation due to dementia 551156525 F03.911 Will increase seroquel Health Concerns Section Related Observation LastModified by Organization Detai ls LastModified Time None Recorded Concern Status LastModified by Organization Details LastModified Time None Recorded Advance Directives Directive Y: Payers Insurance Date Sequence Insurance Name Policy Number Policy Berrios Covered Member ID Berrios Member ID Guarantor Name 03/26/2024 2 [place] [facility] Kellee Wan [id number] Kellee [place] 06/17/2024 [place] [facility] - [facility] Kellee K [place] [id number] Kellee [place] 06/21/2024 2 [employer] - PLAN F (MEDICARE SUPPLEMENT) Kellee Cairo [id number] Kellee [place] 06/17/2024 1 [place] Kellee K [place] [id number] Kellee [place] 03/26/2024 1 [place] Kellee Cairo [id number] Kellee [place] Notes Date Note Type Note Provider Name and Address Organization Details Recorded Time 01/30/2024 text/html Changing PCP Drew Bella MD Attn: Accounting,[address] [facility], [place], [address], [facility] 01/30/2024 15:05:52 03/26/2024 text/html Here with junior Rosario because of stress that is apparent in the evening. This appears to be increasing in the past couple months. Aricept had been stopped because of side effect Drew Bella MD Attn: Accounting[address] [facility], [place], [address], [facility] 03/26/2024 14:53:56 06/20/2024 text/html Here with her . Her is concerned about her restlesness prior to going to bed. Her is also concerned about facial skin nodules Appetite appears good Drew Bella MD Attn: Accounting, [address] [facility], [place], [address], [facility] 06/20/2024 12:58:50 OBGyn Episode No OBEpisode recorded.
--- OUTSIDE RECORDS SUMMARY | 2025-04-20 09:56 | XMS_ITS | Clinical Summary ---
Author Organization [facility] Address [address] [place] [address] Care Team Providers Care Pharmacy Billing Adjudicator Name Role Phone Drew Bella MD Primary Care Provider Unavail able Social History Tobacco Use Types Packs/Day Years [...] - 2023-2 5 season) 2024 PHQ-2 (Physician [place]) 10/09/2024 Meningococcal B Vaccine Aged Out No l onger eligible based on patient's age to complete this topic Meningococcal Vaccine Aged Out No isabella francine eligible based on patient's age to complete this topic RSV Immunizations Under 20 Months Aged Out No longer eligible based on patient's age to complete this topic Insurance MEDICARE Care Teams Pharmacy Billing Adjudicator Relationship Specialty Start Date End Date Drew Bella MD PCP - General INTERNAL MEDICINE 03/07/24
--- OUTSIDE RECORDS SUMMARY | 2025-04-20 10:11 | XMS_ITS | Continuity of Care Document ---
Author Organization [facility] Address [address] [place] [address] [address] [place] [address] Phone Care Team Providers Care Cargo Vessel Stewardess Name Role Phone Unavailable Unavailable Unavailable Allergies, [...] Provider Providers Copied on Encounter [facility], [address] [place], [place] [address], [place], [place], [id number], [place] tel:[phone] [facility] blurry vision at near (chief complaint) borderline glaucoma (chief complaint) Open angle with borderline findings, low risk, bilateralPrese nce of intraocular lensVitreous degeneration, bilateral 8 No Information Family History Family Member Type Diagnosis Age At Onset No Information Payers Payer name Insurance type Covered green party ID Authoriza tion(s) [place] MB [id number] [employer] CI [id number] Social History Type Description Quantity Date [...]
--- OUTSIDE RECORDS SUMMARY | 2025-04-20 10:11 | XMS_ITS | Continuity of Care Document ---
Author Organization [facility] Address [address] [place] [address] Phone Care Team Providers Care Tool Grinder Operator External Name Role Phone Bunny Aviles MD Unavailable [...] Medicare Addendum PPPS, subseq visit OFFICE/OUTPATIENT VISIT, [facility] Advance Directives Directive Yes / No Effective Date File Name No Information Encounters Encounter Description Practice Location Reason(s) For Visit Diagnoses Date Provider Providers Copied on Encounter OFFICE/OUTPA TIENT VISIT, [facility], [address] [place], [id number], tel:[phone] [facility] [place] HLP (chief complaint) glucose1 (chief complaint) GERD1 (chief complaint) memory1 (chief complaint) diarrhea1 (chief complaint) OsteoporosisOther dysphagiaMemory lossLower abdominal painDiarrheaMixed hyperlipidemiaHyper glycemia 4 Stefan Hollis. [email or web address] [facility] [place], [place], [id number] , [place]. tel:[phone] OFFICE/OUTPA TIENT VISIT, [facility], [address] [place], [place], [address], tel:[phone] [facility] physical (chief complaint) Encounter for general adult medical exam w abnormal findingsOther dysphagiaOsteoporos isPain in right kneeMemory loss 3 Stefan Hollis. [address], [place], [place], [address] , [place]. tel:[phone] Family History Family Member Type Diagnosis Age [...] Mental Status Date Cognitive Assessment Orientation - [place] ed to time, place, person, situation.
[2025-04-20 10:28] LABS: Hematocrit 39.3 % (37.0-47.0); Hemoglobin 12.7 g/dL (12.0-15.0); Immature Granulocyte Percent A 0.2 % (0-0.5); Lymphocytes Absolute Auto 1.84 K/mm3 (0.9-3.2); Mean Corpuscular HGB Conc 32.3 g/dl (32-36); Mean Corpuscular Hemoglobin 30.1 pg (26-34); Mean Corpuscular Volume 93.1 fl (80-100); Nucleated Red Blood Cells Absolute Auto 0.000 K/mm3 (0.0-0.012); Nucleated Red Blood Cells Perc 0.0 % (0.0-0.2); Platelet Count Result 297 k/mm3 (150-375); Red Blood Count 4.22 M/mm3 (4.2-5.4); White Blood Count 5.5 K/mm3 (4.5-10.0)
[2025-04-20 10:43] LABS: Alanine Aminotransferase 32 U/L (6-35); Albumin Level 4.1 g/dL (3.5-5.1); Alkaline Phosphatase 148 U/L (38-126); Anion Gap 8 mmol/L (4-12); Aspartate Amino Transferase 44 U/L (14-36); Bilirubin,Total 0.6 mg/dL (0.2-1.3); Blood Urea Nitrogen 19 mg/dL (7-17); Calcium 9.3 mg/dL (8.4-10.2); Carbon Dioxide 26 mmol/L (22-30); Chloride 104 mmol/L (98-107); Estimated CRCL calculation 37 ml/min; Estimated Glomerular Filt Rate > 60; Glucose 95 mg/dL (65-110); Lipase 41 U/L (23-300); Potassium 3.8 mmol/L (3.4-5.0); Sodium 138 mmol/L (137-145); Total Protein 7.7 g/dL (6.3-8.2)
--- NOTE | 2025-04-20 10:51 | ED_ITS ---
HPI - General Adult General Chief complaint: Chest Pain Stated complaint: chest pain x 20 mins Time Seen by Provider: 04/20/25 09:57 History of Present Illness HPI narrative: History is limited by severe dementia. information obtained from . This is an 84-year-old female with significant dementia presenting for chest pain. Chest pain started 20 minutes prior to arrival while she was walking 3 lows with her . Describes as a pressure in the center of her chest that is nonradiating, improved and is no longer present. She has never had pain like this before there are no exacerbating symptoms. There is no vomiting or diaphoresis. Patient did have slight dizziness when getting out car to come to the ED. She also developed right arm pain per her although she is denying that to me now. Patient denies recent illness, fevers chills productive cough shortness of breath abdominal pain or lower extremity edema. Related Data Home Medications ?Medication ?Instructions ?Recorded ?Confirmed ?Last Taken ?Type cholecalciferol (vitamin D3) 50 50 mcg PO DAILY 03/20/25 Unknown History mcg (2,000 unit) capsule mecobalamin (vitamin B12) 1,000 1,000 mcg PO DAILY 03/20/25 Unknown History mcg chewable tablet Allergies Allergy/AdvReac Type Severity Reaction Status Date / Time Sulfa (Sulfonamide Allergy Hives Verified 04/20/25 10:07 Antibiotics) [facility] Past Medical History Medical History Follow up Schatzki's ring Hiatal hernia Dementia DJD (degenerative joint disease) of knee Encounter to establish care 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 BMI 25.0-25.9,adult Dysphagia Colonoscopy planned 07/26/2019 09/03/2019- Removed polyp Osteoporosis GERD (gastroesophageal reflux disease) Arthritis Family History Family History Father Hypertension Heart disease Mother Alzheimer disease Sibling Breast cancer Grandparent Hypertension Social History Social History Smoking status: Never smoker Second hand tobacco smoke exposure: No Alcohol intake: never Substance use: never Substance use type: does not use Do You Feel Safe in your Home?: Yes Lack of Transportation: No Lack of Food: Never True Current Housing: I Have Housing Concerned About Future Housing: No Difficulty Paying Gas/Electric Bills: No Difficulty Paying for Meds: No Currently Unemployed: No Difficulty w/ Childcare or Family Care: No Living arrangements: with family Gender identity (if verbalized by the patient): Female Spiritual care concerns: No Exam 2 Narrative: APPEARANCE: No apparent distress. A&O x1, Head: atraumatic. EYES: EOMI, NOSE: Atraumatic NECK: Trachea midline RESPIRATORY: No increased rate of breathing CTAB CARDIOVASCULAR: RRR, no peripheral edema +2 pulse all extremities ABDOMINAL: Non-distended soft nontender MUSCULOSKELETAl: No obvious deformities NEURO: Alert. Moving 4/4 extremities SKIN:: Warm, dry. Normal color PSYCHIATRIC: Normal affect Course Vital Signs Vital signs: Vital Signs Temperature 97.6 F 04/20/25 10:02 Pulse Rate 80 04/20/25 10:02 Respiratory Rate 17 04/20/25 10:02 Blood Pressure 138/53 L 04/20/25 10:02 Pulse Oximetry 100 04/20/25 10:02 Oxygen Delivery Room Air 04/20/25 10:02 Temperature 97.6 F 04/20/25 10:02 Pulse Rate 77 04/20/25 10:52 Respiratory Rate 16 04/20/25 10:52 Blood Pressure 118/53 L 04/20/25 10:52 Pulse Oximetry 100 04/20/25 10:52 Oxygen Delivery Room Air 04/20/25 10:16 Medical Decision Making MDM Narrative Medical decision making narrative: -Course: 84-year-old female with history of severe dementia presenting for brief episode of chest pain. She is currently chest pain-free. Laboratory studies chest x-ray EKG x2 and troponin x2 were all within normal limits. Patient has been asymptomatic since her arrival in the ED. patient and her requesting discharge they can go eat lunch. Patient will be discharged to follow-up with a assembler bonding. Given return precautions. -DDX includes but is not limited to: ACS, pneumonia, pneumothorax, PE, aortic dissection, chest wall pain -Co-morbidities complicating care: Severe dementia Independent EKG interpretation: Rhythm [sinus], Rate 76, [place] -[normal], CO -[normal], QRS [narrow], QTC [normal], T waves -[negative for concerning inversions], ST Segments - [Negative for concerning elevations] Final interpretations: [Normal Sinus Rhythm] Vital Signs Vital Signs: Vital Signs Temperature 97.6 F 04/20/25 10:02 Pulse Rate 80 04/20/25 10:02 Respiratory Rate 17 04/20/25 10:02 Blood Pressure 138/53 L 04/20/25 10:02 Pulse Oximetry 100 04/20/25 10:02 Oxygen Delivery Room Air 04/20/25 10:02 Temperature 97.6 F 04/20/25 10:02 Pulse Rate 77 04/20/25 10:52 Respiratory Rate 16 04/20/25 10:52 Blood Pressure 118/53 L 04/20/25 10:52 Pulse Oximetry 100 04/20/25 10:52 Oxygen Delivery Room Air 04/20/25 10:16 Lab Data 04/20/25 10:16 04/20/25 10:16 Labs: Lab Results 04/20/25 04/20/25 Range/Units 10:16 13:04 WBC 5.5 (4.5-10.0) K/mm3 RBC 4.22 (4.2-5.4) M/mm3 Hgb 12.7 (12.0-15.0) g/dL Hct 39.3 (37.0-47.0) % MCV 93.1 (80-100) fl MCH 30.1 (26-34) pg MCHC 32.3 (32-36) g/dl RDW 12.9 (11.5-14.5) % Plt Count 297 (150-375) k/mm3 MPV 8.9 (7.4-10.4) fl Immature Gran % (Auto) 0.2 (0-0.5) % Neut % (Auto) 54.7 (45.5-73.1) % Lymph % (Auto) 33.4 (18.3-44.2) % [place] % (Auto) 7.3 (2.6-8.5) % Eos % (Auto) 3.1 (0-4.4) % Baso % (Auto) 1.3 H (0.2-1.2) % Lymph # (Auto) 1.84 (0.9-3.2) K/mm3 [place] # (Auto) 0.4 (0.1-0.6) K/mm3 Eos # (Auto) 0.2 (0-0.3) K/mm3 Baso # (Auto) 0.1 (0.0-0.1) K/mm3 Abs Immat Gran (auto) 0.01 (0.00-0.031) K/mm3 Absolute Neuts (auto) 3.0 (1.3-6.7) K/mm3 Absolute Nucleated RBC 0.000 (0.0-0.012) K/mm3 Nucleated RBC % 0.0 (0.0-0.2) % PT 13.2 (11.1-14.7) Seconds INR 1.0 APTT 32.0 (22.3-36.8) Seconds Sodium 138 (137-145) mmol/L Potassium 3.8 (3.4-5.0) mmol/L Chloride 104 (98-107) mmol/L Carbon Dioxide 26 (22-30) mmol/L Anion Gap 8 (4-12) mmol/L BUN 19 H (7-17) mg/dL Creatinine 0.86 (0.7-1.0) mg/dL Estim Creat Clear Calc 37 ml/min Estimated GFR > 60 (59 - ) Glucose 95 (65-110) mg/dL Calcium 9.3 (8.4-10.2) mg/dL Total Bilirubin 0.6 (0.2-1.3) mg/dL AST 44 H (14-36) U/L ALT 32 (6-35) U/L Alkaline Phosphatase 148 H (38-126) U/L Troponin I < 0.012 < 0.012 (0.000-0.034) ng/mL Total Protein 7.7 (6.3-8.2) g/dL Albumin 4.1 (3.5-5.1) g/dL Lipase 41 (23-300) U/L Discharge Plan Discharge Clinical Impression: Chest pain Patient Disposition: Home Condition: Stable Instructions: Antibiotic Form, Chest Pain (ED) Additional Instructions: Kellee was seen in the emergency department for chest pain. Your workup here was reassuring. Please follow-up with the assembler bonding listed below. If you develop any new or worsening symptoms please return to the ED for re-evaluation. Patient Language: French Prescriptions: No Action memantine 10 mg tablet 10 mg PO BID Qty: 60 2RF quetiapine [Seroquel] 25 mg tablet 25 mg PO BID Qty: 60 2RF cholecalciferol (vitamin D3) 50 mcg (2,000 unit) capsule 50 mcg PO DAILY mecobalamin (vitamin B12) 1,000 mcg tablet,chewable 1,000 mcg PO DAILY solifenacin [Vesicare] 5 mg tablet 5 mg PO .HS Qty: 30 1RF triamcinolone acetonide 0.5 % cream 1 applic topical BID Qty: 453 0RF Follow-up/Referrals: Edinson Roy MD [Physician] - 1 Week (Chest pain ) Humberto Ledesma MD [Primary Care Provider] -
[2025-04-20 10:52] LABS: INR 1.0; Prothrombin Time 13.2 Seconds (11.1-14.7)
[2025-04-20] MEDS: ASPIRIN 81 MG CHEWABLE TABLET 324 MG PO (10:52)
[2025-04-20 10:53] LABS: Partial Thromboplastin Time 32.0 Seconds (22.3-36.8)
[2025-04-20 10:55] LABS: Troponin I < 0.012 ng/mL (0.000-0.034)
--- NOTE | 2025-04-20 12:36 | ECG_ITS ---
Test Date: 2025-04-20 12:45:02 Measurements Intervals [place] Rate: 73 P: 66 MT: 171 QRS: 73 QRSD: 79 T: 57 QT: 390 QTc: 431 Interpretive Statements SINUS RHYTHM Compared to ECG 04/20/2025 10:02:28 No significant changes Electronically Signed On 04-21-2025 15:47:38 CDT by Jose Guadalupe Corral M.D.
[2025-04-20 13:46] LABS: Troponin I < 0.012 ng/mL (0.000-0.034)
== END 2025-04-20 15:00 | disposition home or self-care (01) ==
PROVIDERS: Emergency Medicine; Emergency Provider Emergency Medicine; PCP Internal Medicine
DX: R07.9 Chest pain, unspecified (principal); F03.C0 Unspecified dementia, severe, without behavioral disturbance, psychotic disturbance, mood disturbance, and anxiety; M17.9 Osteoarthritis of knee, unspecified; M81.0 Age-related osteoporosis without current pathological fracture; K21.9 Gastro-esophageal reflux disease without esophagitis; K44.9 Diaphragmatic hernia without obstruction or gangrene; Z79.899 Other long term (current) drug therapy
CPT/HCPCS: 36415; 71046; 80053; 83690; 84484; 85025; 85610; 85730; 93005; 99284; A9270

== ENCOUNTER 2025-04-21 16:47 | Outpatient (CLI) | payer MEDICARE, SELFPAY ==
--- OUTSIDE RECORDS SUMMARY | 2025-04-21 16:51 | XMS_ITS | Data Portability ---
Author Organization [facility] JENNYGary Address [address] [place] [address] Assessment No assessment recorded. Plan of Treatment Reminders Order Date Submit Date Provider Last Modified By Organization Details Last Modified Time Details Appointments None recorded. Lab None recorded. Referral dermatologi st referral 2023 024 becky Mota MD (Dermatology) , [address] [facility] , [facility], [place], [address], 5 14:34:04 Procedures None recorded. Surgeries None recorded. Imaging None recorded. Medication Orders quetiapine 25 mg tablet 2023 024 [id number], [address] , [place], [place], [id number], 4 12:53:46 Seroquel 25 mg tablet 2023 024 [facility] #[id number], [address] , [place], [place], [id number], 4 14:53:19 Patient TargetsNo targets recorded. Patient InstructionsNo instructions recorded. 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 Electrostatic Powder Coating Technician Referral for D isorder of skin New onset appearance non pigmented facial nodules Referring Physician: Drew Bella, Internal Medicine, Encounter Date: 06/20/2024 Results Created Date Observation Date Name Description Value Unit Range Abnormal Flag Note LastModifiedBy Organization Detail LastModifiedTime 05/20/20 24 05/22/2024 Patho logy study pathology study [facility] Dep[facility] ment of Labora tory Medici ne [address] [place] [address] Teleph one: [phone], extens ion [id number] [phone] Pathol ogy Report Surgic al Pathol ogy Report Name: KELLEE WAN en #: [id number] Age: [birth year] (Age: 83) Locati on: [facility] Sex: F Proced ure Date: Hospit al #: [id number] Date Receiv ed: Date Report ed: [...] and sign out were perfor med at [facility], [address] [place] [address]. FINAL DIAGNO SIS: Gallbl adder, cholec ystect devora: -Chron ic cholec ystiti s. -Marley lithia sis. Elec tronic ally Signed Out CALLY CASE MD PATHO LOGY [facility] elida Depar tment of Labor atory Medic ine [address] [facility] [place] [address] Telep homer: [phone], exten yamilet 07 Patho logy Repor t Surgi sandy Patho logy Repor t Name: KELLEE LLOYD Speckandice men #: [id number] Age: [birth year]9/19 (Age: 83) Locat ion: [facility] Sex: F Proce dure Date: 2023 Hospi elida #: [id number] Date Recei connie: 2023 Date Repor [...] and sign out were perfo rmed at [facility], [address] [facility], [place] [address] . FINAL DIAGN OSIS: Gallb ladde r, marley cyste ctomy : -Paper Ruler pablito marley cysti tis. -Chol elith iasis . Jenna ctron icall y Nicki d Out HARJIT CASE MD [facility] Not Available Not Available 02/19/2025 13:56:34 Result Notes None recorded. Problems Name Problem SNOMED Code Status Onset Date Resolution Date Notes Provider Name and Address Organization Details Recorded Time Primary degenerative dementia of the Alzheimer type, senile onset 069358795 Active 2023 Drew Bella MD Attn: Tasneem lucas,[address] [facility], [place], [address], [facility] - [facility] 4 14:59:54 Median fissure of lip 732106434 Active 2023 Drew Bella MD Attn: Yoselinnew lucas,[address] [facility], [place], [address], [facility] - [facility] 4 15:02:13 Agitation due to dementia 030118344 Active 2023 Drew Bella MD Attn: Tasneem lucas,[address] [facility], [place], [address], [facility] - [facility] 4 14:50:40 Disorder of skin 59294776 Active 2023 Drew Bella MD Attn: Yoselinnew lucas,[address] [facility], [place], [address], [facility] - [facility] 4 12:47:47 Problem Notes None recorded. Procedures Surgical History Date Name Laterality Status Provider Name and Address Organization Details Recorded Time Appendectomy completed Yoni Walker MA [facility] 06/20/2024 12:10:35 Imaging Results None recorded. Procedure [...] Address Organization Details Last Updated DateTime 4 79603.5 2 g 25 kg/m2 160.02 cm 98 % 98 % 98 [degF] 87 /min 152/82 mm[Hg] Mariola Barrett MA [facility] 4 14:25:55 Date Recorded Body height Body mass index (BMI) Body weight Heart rate Oxygen saturation Oxygen saturation in Arterial blood by Pulse oximetry Systolic And Diastolic Provider Name and Address Organization Details Last Updated DateTime 4 160.02 cm 25 kg/m2 16148.5 2 g 87 /min 98 % 98 % 154/78 mm[Hg] Mariola Barrett MA [facility] SI 4 12:47:34 Date Recorded Body height Body mass index (BMI) Body weight Heart rate Oxygen saturation Oxygen saturation in Arterial blood by Pulse oximetry Systolic And Diastolic Provider Name and Address Organization Details Last Updated DateTime 4 160.02 cm 24.4 kg/m2 25690.6 7 g 82 /min 95 % 95 % 111/71 mm[Hg] Yoni Walker MA [place] - [facility] 4 12:18:20 Social History Question Answer Notes LastModified by Organizat ion Details LastModified Time Tobacco Smoking Status Never Smoker Mariola Barrett [place] null, [place] [facility] 01/30/2024 14:23:21 Do You Have [...] Functional Status Question Answer Note LastModified by InCytu ion Details LastModified Time Do you use [...] anxious, or unable to sleep at night)? [id number] Information not available 06/20/2024 Family History Relationship [...] Skin Problems N Anemia N Heart Attack (PR) N Anxiety Disorder N Diabetes N Muscle, [...] PF 4 completed Yoni Walker MA mery, [place] - [facility] 06/20/2024 12:16:41 COVID-19, mRNA, LNP-S, PF, maxim-sucrose, 30 mcg/0.3 mL 4 completed Yoni Walker [place], [place] - [facility] 06/20/2024 12:16:41 Past Encounters Encounter ID Performer Location Encounter Start Date Encounter Closed Date Diagnosis/Indication Diagnosis SNOMED-CT Code Diagnosis ICD10 Code Diagnosis Note [id number] Drew Bella MD [facility] (Adult Med) [address] [place] [address] 01/30/2024 13:42:07 01/31/2024 12:13:51 Primary degenerative dementia of the Alzheimer type, senile onset 558632803 G30.1 F/U neurologis t Median fissure of lip 40 6083465 K13.0 Continue dental cream [id number] Drew Bella MD [facility] (Adult Med) [address] [place] [phone] 03/26/2024 12:18:25 03/28/2024 14:52:01 Agitation due to dementia 251643849 F03.661 [id number] Drew Bella MD [facility] (Adult Med) [address] [place] [address] 06/20/2024 11:51:02 06/21/2024 11:36:36 Disorder of skin 65324267 L98.9 Agitation due to dementia 446358040 F03.911 Will increase seroquel Health Concerns Section Related Observation LastModified by Organization Detai ls LastModified Time None Recorded Concern Status LastModified by Organization Details LastModified Time None Recorded Advance Directives Directive Y: Payers Insurance Date Sequence Insurance Name Policy Number Policy Berrios Covered Member ID Berrios Member ID Guarantor Name 03/26/2024 2 [place] [facility] Kellee Wan [id number] Kellee [place] 06/17/2024 [place] - [facility] - [facility] Kellee K [place] [id number] Kellee [place] 06/21/2024 2 [employer] - PLAN F (MEDICARE SUPPLEMENT) Kellee [place] [id number] Kellee [place] 06/17/2024 1 [place] Kellee K [place] [id number] Kellee [place] 03/26/2024 1 [place]ellee [place] [id number] Kellee [place] Notes Date Note Type Note Provider Name and Address Organization Details Recorded Time 01/30/2024 text/html Changing PCP Drew Bella MD Attn: Accounting,[address] [facility], [place], [address], [facility] 01/30/2024 15:05:52 03/26/2024 text/html Here with junior Rosario because of stress that is apparent in the evening. This appears to be increasing in the past couple months. Aricept had been stopped because of side effect Drew Bella MD Attn: Accounting,[address] [facility], [place], [address], [facility] 03/26/2024 14:53:56 06/20/2024 text/html Here with her . Her is concerned about her restlesness prior to going to bed. Her is also concerned about facial skin nodules Appetite appears good Drew Bella MD Attn: Accounting, [address] [facility], [place], [address], [facility] 06/20/2024 12:58:50 OBGyn Episode No OBEpisode recorded.
--- OUTSIDE RECORDS SUMMARY | 2025-04-21 16:51 | XMS_ITS | Clinical Summary ---
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 [address] [place] [id number] PCP - General Internal Medicine 08/02/21
--- OUTSIDE RECORDS SUMMARY | 2025-04-21 16:51 | XMS_ITS | Encounter Summary ---
Author Organization [facility] Address 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
--- OUTSIDE RECORDS SUMMARY | 2025-04-21 16:51 | XMS_ITS | Clinical Summary ---
Author Organization [facility] Address [address] [place] [address] Care Team Providers Care Analytical Tech Name Role Phone Bunny Aviles MD Primary Care Provider [phone] Allergies Active Allergy Reactions Criticality Noted Date [...] (03/26/2020): Added automatically from request for surgery [id number] Polyp of cecum 07/29/2019 Overview (07/29/2019): Added automatically from request for surgery [id number] Pseudophakia of both eyes 07/17/2015 Overview (07/02/2018): [...] (05/17/2018): Added automatically from request for surgery [id number] Pseudophakia of left eye 05/16/2018 Assessment & [...] on file Legal Sex 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 Gender Identity Not on file Sexual Orientation Not on file Obstetrics History Last Filed Vital Signs Vital Sign Reading Time Taken Comments Blood Pressure 120/70 09/23/2024 10:55 AM PACKING MACHINE FEEDER Pulse 82 09/23/2024 10:55 AM PACKING MACHINE FEEDER Temperature 36.7 C (98 F) 02/20/2024 11:16 AM CDT Respiratory Rate 19 09/23/2024 10:55 AM PACKING MACHINE FEEDER Oxygen Saturation 98% 09/23/2024 10:55 AM PACKING MACHINE FEEDER Inhaled Oxygen Concentration - - Weight 63.5 kg (140 lb) 09/23/2024 10:55 AM PACKING MACHINE FEEDER Height 157.5 cm (5' 2) 09/23/2024 10:55 AM PACKING MACHINE FEEDER Body Mass Index 25.61 09/23/2024 10:55 AM PACKING MACHINE FEEDER Plan of Treatment Health Maintenance Due Date [...] 07/26/2017, 07/24/2017 Medical Devices Implanted Type Area Equipment Validation Specialist Device Identifier Shelf Expiration Date Model / Serial / Lot [employer] [id number] Tecnis Protec Tecnis Itec 6mm 13mm 1 Piece Anterior Aspheric - [id number] - [id number] Implanted:Qty: 1 on 06/21/2018 by Mary Torrez MD at [facility] Right: Eye [employer] 09/28/2020 [id number] / [id number] / Insurance [employer] MEDICARE MEDICARE MEDICARE Advance Directives For more information, please contact: [phone] * Full Code (Latest Code Status on File) Date Activated Date Inactivated Comments 04/29/2020 8:42 AM 04/29/2020 2:33 PM * Full Code Date Activated Date Inactivated Comments 09/03/2019 9:40 AM 09/03/2019 5:00 PM Care Teams Analytical Tech Relationship Specialty Start Date End Date Bunny Aviles MD [address] [place] [address] PCP - General Family Medicine 10/30/23
--- OUTSIDE RECORDS SUMMARY | 2025-04-21 16:51 | XMS_ITS | Continuity of Care Document ---
Author Organization [facility] Address [address] [place] [address] Phone Care Team Providers Care Form Tamper Operator Name Role Phone Bunny Aviles MD Unavailable [...] Medicare Addendum PPPS, subseq visit OFFICE/OUTPATIENT VISIT, [facility] Advance Directives Directive Yes / No Effective Date File Name No Information Encounters Encounter Description Practice Location Reason(s) For Visit Diagnoses Date Provider Providers Copied on Encounter OFFICE/OUTPA TIENT VISIT, [facility], [address], [place], [id number], tel:[phone] [facility] HLP (chief complaint) glucose1 (chief complaint) GERD1 (chief complaint) memory1 (chief complaint) diarrhea1 (chief complaint) OsteoporosisOther dysphagiaMemory lossLower abdominal painDiarrheaMixed hyperlipidemiaHyper glycemia 4 Stefan Hollis. [address] [facility] [place], [id number] , [place]. tel:[phone] OFFICE/OUTPA TIENT VISIT, [facility], [address], [place], [id number], tel:[phone] [facility] physical (chief complaint) Encounter for general adult medical exam w abnormal findingsOther dysphagiaOsteoporos isPain in right kneeMemory loss 3 Stefan Hollis. [address], [place], [place], [id number] , [place]. tel:[phone] Family History Family Member Type Diagnosis Age [...] Mental Status Date Cognitive Assessment Orientation - Novi ed to time, place, person, situation.
--- OUTSIDE RECORDS SUMMARY | 2025-04-21 16:51 | XMS_ITS | Encounter Summary ---
Author Organization [facility] Address 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
--- OUTSIDE RECORDS SUMMARY | 2025-04-21 16:51 | XMS_ITS | Continuity of Care Document ---
Author Organization [facility] Address [address] [place] [address] [address] [place] [address] Phone Care Team Providers Care Lining Parts Sewer Name Role Phone Unavailable Unavailable Unavailable Allergies, [...] Provider Providers Copied on Encounter [facility], [address] [place], [place] [address], [place], [place], [id number], [place] tel:[phone] OPH CONSULT [facility] blurry vision at near (chief complaint) borderline glaucoma (chief complaint) Open angle with borderline findings, low risk, bilateralPrese nce of intraocular lensVitreous degeneration, bilateral 8 No Information Family History Family Member Type Diagnosis Age At Onset No Information Payers Payer name Insurance type Covered democrat ID Authoriza tion(s) [place] OF [place] MB [id number] [employer] CI [id number] Social History Type Description Quantity Date [...]
--- OUTSIDE RECORDS SUMMARY | 2025-04-21 16:51 | XMS_ITS | Referral Summary ---
Author Organization [facility] Address [address] [place] [address] Care Team Providers Care Supply Chain Program Manager Name Role Phone Bunny Aviles MD Primary Care Provider [phone] Allergies Active Allergy Reactions Criticality Noted Date [...] (03/26/2020): Added automatically from request for surgery [id number] Polyp of cecum 07/29/2019 Overview (07/29/2019): Added automatically from request for surgery [id number] Pseudophakia of both eyes 07/17/2015 Overview (07/02/2018): [...] (05/17/2018): Added automatically from request for surgery [id number] Pseudophakia of left eye 05/16/2018 Assessment & [...] on file Legal Sex Female 6:55 PM ASSEMBLY LINE BRAZER Gender Identity Not on file Sexual Orientation Not on file Last Filed Vital Signs Vital Sign Reading Time Taken Comments Blood Pressure 120/70 09/23/2024 10:55 AM ASSEMBLY LINE BRAZER Pulse 82 09/23/2024 10:55 AM ASSEMBLY LINE BRAZER Temperature 36.7 C (98 F) 02/20/2024 11:16 AM CDT Respiratory Rate 19 09/23/2024 10:55 AM ASSEMBLY LINE BRAZER Oxygen Saturation 98% 09/23/2024 10:55 AM ASSEMBLY LINE BRAZER Inhaled Oxygen Concentration - - Weight 63.5 kg (140 lb) 09/23/2024 10:55 AM ASSEMBLY LINE BRAZER Height 157.5 cm (5' 2) 09/23/2024 10:55 AM ASSEMBLY LINE BRAZER Body Mass Index 25.61 09/23/2024 10:55 AM ASSEMBLY LINE BRAZER Plan of Treatment Not on file Medical Devices Implanted Type Area Log Buncher Device Identifier Shelf Expiration Date Model / Serial / Lot [employer] [id number] Tecbárbara Protec Tecnis Itec 6mm 13mm 1 Piece Anterior Aspheric - [id number] - [id number] Implanted:Qty: 1 on 06/21/2018 by Mary Torrez MD at [facility] Right: Eye [employer] 09/28/2020 [id number] / [id number] / Insurance MEDICARE [facility] Address: [address] [address] [place] [address] MEDICARE MEDICARE Advance Directives For more information, please contact: [phone] * Full Code (Latest Code Status on File) Date Activated Date Inactivated Comments 04/29/2020 8:42 AM 04/29/2020 2:33 PM * Full Code Date Activated Date Inactivated Comments 09/03/2019 9:40 AM 09/03/2019 5:00 PM Care Teams Supply Chain Program Manager Relationship Specialty Start Date End Date Bunny Aviles MD [address] [place] [address] PCP - General Family Medicine 10/30/23
--- OUTSIDE RECORDS SUMMARY | 2025-04-21 16:51 | XMS_ITS | Clinical Summary ---
Author Organization [facility] Address [address] [place] [address] Care Team Providers Care Leaflet Or Newspaper Deliverer Name Role Phone Drew Bella MD Primary [...] - 2023-2 5 season) 2024 PHQ-2 (Physician [place]) 10/09/2024 Meningococcal B Vaccine Aged Out No l onger eligible based on patient's age to complete this topic Meningococcal Vaccine Aged Out No isabella francine eligible based on patient's age to complete this topic RSV Immunizations Under 20 Months Aged Out No longer eligible based on patient's age to complete this topic Insurance MEDICARE Care Teams Leaflet Or Newspaper Deliverer Relationship Specialty Start Date End Date Drew Bella MD PCP - General INTERNAL MEDICINE 03/07/24
[2025-04-21 17:44] LABS: Alanine Aminotransferase 52 U/L (6-35); Aspartate Amino Transferase 58 U/L (14-36)
== END 2025-04-21 16:48 | disposition home or self-care (01) ==
PROVIDERS: PCP Internal Medicine; Visit Provider Podiatrist Foot & Ankle Surgery
DX: B35.1 Tinea unguium (principal)
CPT/HCPCS: 36415; 84450; 84460

== ENCOUNTER 2025-05-22 01:27 | Day surgery (SDC) | payer MEDICARE, SELFPAY ==
[2025-05-05 15:10] VITALS: BMI 25.7
--- OUTSIDE RECORDS SUMMARY | 2025-05-22 01:30 | XMS_ITS | Encounter Summary ---
Author Organization [facility] Address 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
--- OUTSIDE RECORDS SUMMARY | 2025-05-22 01:30 | XMS_ITS | Continuity of Care Document ---
Author Organization [facility] Address [address] [facility] [place] [address] Phone Care Team Providers Care Water/Wastewater Project Engineer Name Role Phone Bunny Aviles MD Unavailable [...] Medicare Addendum PPPS, subseq visit OFFICE/OUTPATIENT VISIT, [facility] Advance Directives Directive Yes / No Effective Date File Name No Information Encounters Encounter Description Practice Location Reason(s) For Visit Diagnoses Date Provider Providers Copied on Encounter OFFICE/OUTPA TIENT VISIT, [facility], [address] [place], [id number], tel:[phone] [facility] HLP (chief complaint) glucose1 (chief complaint) GERD1 (chief complaint) memory1 (chief complaint) diarrhea1 (chief complaint) OsteoporosisOther dysphagiaMemory lossLower abdominal painDiarrheaMixed hyperlipidemiaHyper glycemia 4 Stefan Hollis. [address] [employer] [facility] [place], [id number] , [place]. tel:[phone] OFFICE/OUTPA TIENT VISIT, [facility], [place], [address] [place], [place], [id number], tel:[phone] [facility] physical (chief complaint) Encounter for general adult medical exam w abnormal findingsOther dysphagiaOsteoporos isPain in right kneeMemory loss 3 Stefan Hollis. [address], [place], [place], [id number] , [place]. tel:[phone] Family History Family Member Type Diagnosis Age [...] Mental Status Date Cognitive Assessment Orientation - [place] ed to time, place, person, situation.
--- OUTSIDE RECORDS SUMMARY | 2025-05-22 01:30 | XMS_ITS | Clinical Summary ---
Author Organization [facility] Address [address] [place] [address] Care Team Providers Care Rocket Engine Mechanic Name Role Phone Drew Bella MD Primary [...] - 2023-2 5 season) 2024 PHQ-2 (Physician [place]) 10/09/2024 Meningococcal B Vaccine Aged Out No l onger eligible based on patient's age to complete this topic Meningococcal Vaccine Aged Out No isabella francine eligible based on patient's age to complete this topic RSV Immunizations Under 20 Months Aged Out No longer eligible based on patient's age to complete this topic Insurance MEDICARE Care Teams Rocket Engine Mechanic Relationship Specialty Start Date End Date Drew Bella MD PCP - General INTERNAL MEDICINE 03/07/24
--- OUTSIDE RECORDS SUMMARY | 2025-05-22 01:30 | XMS_ITS | Continuity of Care Document ---
Author Organization [facility] Address [address] [place] [address] [address] [place] [address] Phone Care Team Providers Care Take Away Man Name Role Phone Unavailable Unavailable Unavailable Allergies, [...] Provider Providers Copied on Encounter [facility], [address] [place], [place] [address], [place], [place], [id number], [place] tel:[phone] OPH CONSULT [facility] blurry vision at near (chief complaint) borderline glaucoma (chief complaint) Open angle with borderline findings, low risk, bilateralPrese nce of intraocular lensVitreous degeneration, bilateral 8 No Information Family History Family Member Type Diagnosis Age At Onset No Information Payers Payer name Insurance type Covered republican ID Authoriza tion(s) [place] MB [id number] Citizen Of [place] [employer] CI [id number] Social History Type Description Quantity Date [...]
--- OUTSIDE RECORDS SUMMARY | 2025-05-22 01:30 | XMS_ITS | Clinical Summary ---
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
--- OUTSIDE RECORDS SUMMARY | 2025-05-22 01:30 | XMS_ITS | Encounter Summary ---
Author Organization [facility] Address [address] [place] [address] Care Team Providers Care Traveling Missionary Name Role Phone Irwin Gonzalez MD Primary [...] on file Legal Sex Female 5:23 AM ELEVATOR SERVICE MECHANIC Gender Identity Not on file Sexual Orientation Not on file documented as of this encounter Plan of Treatment Not on file documented as of this encounter Visit Diagnoses Diagnosis Dysphagia- Primary documented in this encounter Care Teams Traveling Missionary Relationship Specialty Start Date End Date Irwin Gonzalez MD [address] [phone] PCP - General Internal Medicine 08/02/21 documented as of this encounter
--- OUTSIDE RECORDS SUMMARY | 2025-05-22 01:30 | XMS_ITS | Clinical Summary ---
Author Organization [facility] Address [address] [place] [address] Care Team Providers Care Senior Compliance Officer Name Role Phone Bunny Aviles MD Primary Care Provider [phone] Allergies Active Allergy Reactions Criticality Noted Date [...] (03/26/2020): Added automatically from request for surgery [id number] Polyp of cecum 07/29/2019 Overview (07/29/2019): Added automatically from request for surgery [id number] Pseudophakia of both eyes 07/17/2015 Overview (07/02/2018): [...] (05/17/2018): Added automatically from request for surgery [id number] Pseudophakia of left eye 05/16/2018 Assessment & [...] on file Legal Sex Female 6:55 PM ACUTE CARE PHYSICAL THERAPIST Gender Identity Not on file Sexual Orientation Not on file Obstetrics History Last Filed Vital Signs Vital Sign Reading Time Taken Comments Blood Pressure 120/70 09/23/2024 10:55 AM ACUTE CARE PHYSICAL THERAPIST Pulse 82 09/23/2024 10:55 AM ACUTE CARE PHYSICAL THERAPIST Temperature 36.7 C (98 F) 02/20/2024 11:16 AM CDT Respiratory Rate 19 09/23/2024 10:55 AM ACUTE CARE PHYSICAL THERAPIST Oxygen Saturation 98% 09/23/2024 10:55 AM ACUTE CARE PHYSICAL THERAPIST Inhaled Oxygen Concentration - - Weight 63.5 kg (140 lb) 09/23/2024 10:55 AM ACUTE CARE PHYSICAL THERAPIST Height 157.5 cm (5' 2) 09/23/2024 10:55 AM ACUTE CARE PHYSICAL THERAPIST Body Mass Index 25.61 09/23/2024 10:55 AM ACUTE CARE PHYSICAL THERAPIST Plan of Treatment Health Maintenance Due Date [...] 07/26/2017, 07/24/2017 Medical Devices Implanted Type Area Senior Sales Assistant Device Identifier Shelf Expiration Date Model / Serial / Lot [employer] [id number] Tecnis Protec Tecnis Itec 6mm 13mm 1 Piece Anterior Aspheric - [id number] - [id number] Implanted:Qty: 1 on 06/21/2018 by Mary Torrez MD at [facility] Right: Eye [employer] 09/28/2020 [id number] / [id number] / Insurance [place] [employer] MEDICARE MEDICARE MEDICARE Advance Directives For more information, please contact: [phone] * Full Code (Latest Code Status on File) Date Activated Date Inactivated Comments 04/29/2020 8:42 AM 04/29/2020 2:33 PM * Full Code Date Activated Date Inactivated Comments 09/03/2019 9:40 AM 09/03/2019 5:00 PM Care Teams Senior Compliance Officer Relationship Specialty Start Date End Date Bunny Aviles MD [address] [place] [address] PCP - General Family Medicine 10/30/23
--- NOTE | 2025-05-22 08:56 | WPDANESEPPF ---
Anes - Initial Pre Proc Eval Procedure: Operation Date: 05/22/25 10:45 Proposed Procedures p Esophagogastroduodenoscopy - Deangelo Christianson MD Date/Time: 05/22/25 08:56 Surgeon: Deangelo Christianson MD Pre Op Diagnosis: Abnormal findings on diagnostic imaging of other p Patient Data Age: 84 Gender: F Height: 1.57 m Weight: 63.7 kg Allergies Allergy/AdvReac Type Severity Reaction Status Date / Time Sulfa (Sulfonamide Allergy Hives Verified 05/05/25 15:07 Antibiotics) Home Medications ?Medication ?Instructions ?Recorded ?Confirmed ?Type memantine 10 mg tablet 10 mg PO BID #60 tabs 03/04/25 05/22/25 Rx quetiapine 25 mg tablet (Seroquel) 25 mg PO BID #60 tabs 03/04/25 05/22/25 Rx cholecalciferol (vitamin D3) 100 100 mcg PO DAILY 04/21/25 05/22/25 History mcg (4,000 unit) tablet pravastatin 40 mg tablet 40 mg PO DAILY #90 tabs 04/21/25 05/22/25 Rx Patient hx anesthesia problems: none Family hx anesthesia problems: none Results Review: All pre-operative results and documents have been reviewed as part of the pre-operative evaluation. [facility] Past Medical History Medical History Follow up Schatzki's ring Hiatal hernia Dementia DJD (degenerative joint disease) of knee Encounter to establish care On reduction furnace operator helper drug therapy BMI 25.0-25.9,adult Dysphagia Colonoscopy planned 07/26/2019 09/03/2019- Removed polyp Osteoporosis GERD (gastroesophageal reflux disease) Arthritis Family History Family History Father Hypertension Heart disease Mother Alzheimer disease Sibling Breast cancer Grandparent Hypertension Social History Social History Smoking status: Never smoker Second hand tobacco smoke exposure: No Alcohol intake: never Substance use: never Substance use type: does not use Do You Feel Safe in your Home?: Yes Lack of Transportation: No Lack of Food: Never True Current Housing: I Have Housing Concerned About Future Housing: No Difficulty Paying Gas/Electric Bills: No Difficulty Paying for Meds: No Currently Unemployed: No Difficulty w/ Childcare or Family Care: No Living arrangements: with family Gender identity (if verbalized by the patient): Female Spiritual care concerns: No Anes - Eval Final PreProcedure Day of Procedure 05/22/25 08:56 Patient weight: overweight Heart: regular rate and rhythm Lungs: clear to auscultation Airway: Mallampati scale class II Neurological: alert and oriented Last oral intake: >/= 8 hours ASA classification: III Emergent: no Anesthetic plan: proceed Anesthesia type and monitoring: general GIVS and standard monitoring Results Review: All pre-operative results and documents have been reviewed as part of the pre-operative evaluation. Informed Consent: The patient's anesthetic plan and its attendant risks and benefits were discussed with the patient/family/POA. Questions were solicited and answers provided to the satisfaction of the patient/family/POA.
[2025-05-22 09:50] VITALS: BP 115/91; PULSE 85; RESP 18; TEMP 36.6; O2SAT 100
[2025-05-22] MEDS: LACTATED RINGERS 1,000 ML 150 ML IV CONT (10:04)
--- NOTE | 2025-05-22 10:41 | PM.HPGS ---
History of Present Illness History of Present Illness Consent: Risks, benefits, and alternatives have been discussed and questions answered. Patient agrees to proceed with procedure. Chief complaint: Abnormal findings on diagnostic imaging of other p Narrative: Kellee Covarrubias is a 84 year old female with advanced dementia and dysphagia, last EGD 2022 with esophageal ring that was dilated up to 18 mm Review of Systems Review of Systems: All systems reviewed & are unremarkable except as noted in HPI and below PMFSH Past Medical History Medical History Follow up Schatzki's ring Hiatal hernia Dementia DJD (degenerative joint disease) of knee Encounter to establish care On terminal system operator drug therapy BMI 25.0-25.9,adult Dysphagia Colonoscopy planned 07/26/2019 09/03/2019- Removed polyp Osteoporosis GERD (gastroesophageal reflux disease) Arthritis Family History Family History Father Hypertension Heart disease Mother Alzheimer disease Sibling Breast cancer Grandparent Hypertension Social History Social History Smoking status: Never smoker Second hand tobacco smoke exposure: No Alcohol intake: never Substance use: never Substance use type: does not use Do You Feel Safe in your Home?: Yes Lack of Transportation: No Lack of Food: Never True Current Housing: I Have Housing Concerned About Future Housing: No Difficulty Paying Gas/Electric Bills: No Difficulty Paying for Meds: No Currently Unemployed: No Difficulty w/ Childcare or Family Care: No Living arrangements: with family Gender identity (if verbalized by the patient): Female Spiritual care concerns: No Meds Home Medications and Allergies Home Medications ?Medication ?Instructions ?Recorded ?Confirmed ?Type memantine 10 mg tablet 10 mg PO BID #60 tabs 03/04/25 05/22/25 Rx quetiapine 25 mg tablet (Seroquel) 25 mg PO BID #60 tabs 03/04/25 05/22/25 Rx cholecalciferol (vitamin D3) 100 100 mcg PO DAILY 04/21/25 05/22/25 History mcg (4,000 unit) tablet pravastatin 40 mg tablet 40 mg PO DAILY #90 tabs 04/21/25 05/22/25 Rx Allergies Allergy/AdvReac Type Severity Reaction Status Date / Time Sulfa (Sulfonamide Allergy Hives Verified 05/05/25 15:07 Antibiotics) Vital Signs Vital Signs - 24 hr 05/22/25 09:50 Temperature 97.8 F Pulse Rate 85 Respiratory Rate 18 Blood Pressure 115/91 H Pulse Oximetry 100 Oxygen Delivery Room Air Exam Narrative: confused, awake, comfortable. at bedside Assessment and Plan Assessment and plan (1) Dysphagia: Qualifiers: Dysphagia type: pharyngoesophageal phase Qualified Code(s): R13.14 - Dysphagia, pharyngoesophageal phase Code(s): R13.10 - Dysphagia, unspecified Status: Acute Assessment and Plan: egd to assess if need more dilation (2) Dementia: Qualifiers: Dementia type: unspecified type Dementia severity: unspecified severity Dementia behavioral or psychological symptom: unspecified whether behavioral, psychotic, or mood disturbance or anxiety Qualified Code(s): F03.90 - Unspecified dementia, unspecified severity, without behavioral disturbance, psychotic disturbance, mood disturbance, and anxiety Code(s): F03.90 - Unspecified dementia, unspecified severity, without behavioral disturbance, psychotic disturbance, mood disturbance, and anxiety Status: Acute
[2025-05-22 10:59] VITALS: BP 120/70; PULSE 81; RESP 21; O2SAT 98
[2025-05-22 11:09] VITALS: BP 104/55; PULSE 77; RESP 20; O2SAT 100
[2025-05-22 11:19] VITALS: BP 121/62; PULSE 76; RESP 18; O2SAT 100
== END 2025-05-22 11:24 | disposition home or self-care (01) ==
PROVIDERS: PCP Internal Medicine; Visit Provider Internal Medicine Gastroenterology
PROC: 0DJ08ZZ Inspection of Upper Intestinal Tract, Via Natural or Artificial Opening Endoscopic (ICD-10-PCS; CPT 43249; principal; 2025-05-22 10:45)
DX: K22.2 Esophageal obstruction (principal); K44.9 Diaphragmatic hernia without obstruction or gangrene; K21.9 Gastro-esophageal reflux disease without esophagitis; F03.90 Unspecified dementia, unspecified severity, without behavioral disturbance, psychotic disturbance, mood disturbance, and anxiety; M81.0 Age-related osteoporosis without current pathological fracture; M17.10 Unilateral primary osteoarthritis, unspecified knee; Z79.899 Other long term (current) drug therapy; Z87.19 Personal history of other diseases of the digestive system; Z80.3 Family history of malignant neoplasm of breast; Z82.49 Family history of ischemic heart disease and other diseases of the circulatory system
CPT/HCPCS: 43249; C1726; J2003; J2704; J7120

== ENCOUNTER 2025-07-19 18:03 | Observation (INO) | payer MEDICARE, SELFPAY ==
--- OUTSIDE RECORDS SUMMARY | 2018-08-09 04:50 | XMS_ITS | Continuity of Care Document ---
Author Organization [facility] Address [address] [place] [address] [address] [place] [address] Phone Care Team Providers Care Wind Turbine Machinist Name Role Phone Unavailable Unavailable Unavailable Allergies, Adverse Reactions, Alerts Substance Reaction Status Criticality Sulfa (Sulfonamide Antibiotics) Active No Information Medications Medication Instructions Dosage Effective Dates (start - stop) Status Comments Vitamin D3 1,000 unit capsule - Active Citracal + Bone Density 300 mg-200 unit-13.5 mg tablet - Active multivitamin capsule - Active raloxifene 60 mg tablet take 1 tablet by oral route every day 60 MG - Active Procedures Procedure Date EYE EXAM & TREATMENT GDX Optic Nerve Advance Directives Directive Yes / No Effective Date File Name No Information Encounters Encounter Description Practice Location Reason(s) For Visit Diagnoses Date Provider Providers Copied on Encounter [facility], [address] [place], [place] [id number], [place], [place], [id number], [place] tel:[phone] [facility] blurry vision at near (chief complaint) borderline glaucoma (chief complaint) Open angle with borderline findings, low risk, bilateralPrese nce of intraocular lensVitreous degeneration, bilateral 8 No Information Family History Family Member Type Diagnosis Age At Onset No Information Payers Payer name Insurance type Covered green party ID Authoriza tion(s) [place]IC[place] OF [place] MB [id number] [employer] CI [id number] Social History Type Description Quantity Date Captured Comments Alcohol Use Details Unknown Caffeine Use Details Unknown Tobacco Use Status No Information Smoking Status No Information Sex Female Chief Complaint And Reason For Visit From encounter dated '08/09/2018 09:50'. blurry vision at near (chief complaint). Description: Patient presents for evaluation of blurry vision at near following cataract surgery OS this summer. Patient states that her vision is improved OUby her cataract surgery, but she thinks she may still need correction for distance and is contemplating Bifocals or just staying with readers. She wanted to have an appointment with Dr. Ivory and hear his thoughts before proceeding.PT reports a slight bowing of the amsler grid temporal to the center with OS only today in office. OD looked normal. borderline glaucoma (chief complaint). Description: Patient is also present for borderline Glaucomaexam OU. Patient states that both her grandmother and father were Glaucoma Suspects but never had to be treated. Reason For Referral Reason For Referral No Information History Of Present Illness Encounter Date Complaint History Of Prese nt Illness blurry vision at near Patient pr esents for evaluation of blurry vision at near following cataract surgery OS this summer. Patient states that her vision is improved OU by her cataract surgery, but she thinks she may still need correction for distance and is contemplating Bifocals or just staying with readers. She wanted to have an appointment with Dr. Ivory and hear his thoughts before proceeding.PT reports a slight bowing of the amsler grid temporal to the center with OS only today in office. OD looked normal. borderline glaucoma Patient is a lso present for borderline Glaucoma exam OU. Patient states that both her grandmother and father were Glaucoma Suspects but never had to be treated. Functional Status Date Functional Assessmen t No Information Instructions Date Instruction Additional Infor mation Impression/Plan Related to Open angle with borderline findings, low risk, bilateral Impression/Plan Related to Prese nce of intraocular lens Impression/Plan Related to Vitre ous degeneration, bilateral Assessments Type Assessment Date assessment Open angle with borderline findi ngs, low risk, bilateral impression Open angle with bord juan jose findings, low risk, bilateral: H40.013.thick pach -5/-5 assessment Presence of intraocular lens Aug impression Presence of intraocular lens: Z9 6.1 assessment Vitreous degeneration, bilateral impression Vitreous degeneration, bilateral : H43.813 Patient Care Teams Name Effective Dates (start - stop) Status Members No Information
[2025-07-19] VITALS (18 sets, daily range): BP systolic 93–130; BP diastolic 42–108; PULSE 80–113; RESP 8–31; TEMP 37.3; O2SAT 92–99
--- NOTE | ~2025-07-19 | CT_ITS ---
EXAMINATION: CT brain cassia yang, 07/19/2025 19:30 CDT HISTORY: altered mental status COMPARISON: No comparisons available. Technique: Axial images obtained of the brain without contrast. One or more of the following dose reduction techniques were used: automated exposure control, adjustment of the mA and/or kV according to patient size, use of iterative reconstruction technique. Findings: There is no acute infarct . There is disproportionate prominence of the ventricles compared to the sulci. No midline shift or mass effect. Artifact limits evaluation however there is a small focus of hemorrhage suspected adjacent to the right temporal lobe probably subarachnoid in location however distinction from a small focus of subdural hemorrhage is limited, this area maximally measures 3 x 4 mm. Mastoid air cells unremarkable. Sinuses and orbits unremarkable. No acute fracture. No significant facial or scalp soft tissue swelling evident. No radiopaque foreign body is seen. Impression: 1. Limited study. Trace focus of subarachnoid hemorrhage versus subdural suspected adjacent to the right temporal lobe. Follow-up is recommended to assess. 2. Probable underlying normal pressure hydrocephalus. Reviewed, dictated and finalized at location P. Impression: 1. Limited study. Trace focus of subarachnoid hemorrhage versus subdural suspec bree adjacent to the right temporal lobe. Follow-up is recommended to assess. 2. Probable underlying normal pressure hydrocephalus.
--- NOTE | ~2025-07-19 | CT_ITS ---
EXAMINATION: CT abdomen pelvis w con DATE: 07/20/2025 15:12 INDICATION: Abdominal pain. Vomiting. TECHNIQUE: Computed tomography (CT) of the abdomen and pelvis was performed with 100 mL Omnipaque 350 intravenous contrast. Automated exposure control and iterative reconstruction technique were employed. The dose-length product was 206.33 mGy-cm. COMPARISON: CT abdomen and pelvis 03/26/2025 FINDINGS: The portions of the lung bases demonstrate mild atelectasis. There are small pleural effusions. The heart size is normal. There are coronary artery calcifications. No pericardial effusion. There is a small sliding hiatal hernia. The liver is normal. The gallbladder is absent. The spleen, pancreas, adrenal glands, and left kidney are normal. There are cysts in right kidney measuring up to 9 mm. The bladder is decompressed by [place] catheter. There are no dilated loops of bowel. The appendiceal diameter is 7 mm, which is chronic. There is wall thickening of the descending and sigmoid colon, consistent with colitis. There are no pathologically enlarged lymph nodes. There is trace pelvic ascites. There is severe lumbar spondylosis. IMPRESSION: 1. Wall thickening of the descending and sigmoid colon, consistent with colitis. 2. Small sliding hiatal hernia. Reviewed, dictated and finalized at location E. IMPRESSION: 1. Wall thickening of the descending and sigmoid colon, consistent with colitis . 2. Small sliding hiatal hernia.
--- NOTE | ~2025-07-19 | XR_ITS ---
EXAMINATION: XR chest 1V, 07/19/2025 19:38 CDT HISTORY: unknown cause of weakness COMPARISON: No comparisons available. Technique: Single view. Findings: The lungs are clear, no effusion. No pneumothorax. Heart is normal size. Mediastinal and hilar contours are within normal limits. Bony thorax no acute abnormality. Impression: No acute cardiopulmonary abnormality. Reviewed, dictated and finalized at location P. Impression: No acute cardiopulmonary abnormality.
--- NOTE | ~2025-07-19 | CT_ITS ---
EXAMINATION: CTA brain carotid DATE: 07/19/2025 21:03 INDICATION: Acute intracranial hemorrhage. TECHNIQUE: Computed tomographic angiography (CTA) of the head was performed without and with 100 mL Omnipaque-350 intravenous contrast. CTA of the neck was performed with intravenous contrast. Automated exposure control and iterative reconstruction technique were employed. The dose-length product was 1108.43 mGy- cm. Maximum intensity projection and volume rendered 3D-reconstructions were created by the technologist on a separate workstation. COMPARISON: Head CT 07/19/2025 FINDINGS: HEAD CTA: There are scattered areas of low attenuation in the cerebral white matter. There is no intracranial hemorrhage, acute infarction, or abnormal intracranial mass lesion. The ventricles are normal in size. There are likely changes of ocular lens replacement surgeries. There is mild mucosal thickening in the paranasal sinuses. The mastoid air cells are normal. Left vertebral artery is dominant. There is no significant stenosis of basilar artery or the posterior cerebral arteries. The posterior communicating arteries are normal. There is no significant stenosis of the intracranial internal carotid arteries or anterior or middle cerebral arteries. Anterior communicating artery is normal. There is no aneurysm. NECK CTA: There are no pathologically enlarged lymph nodes. There is no significant stenosis of the vertebral arteries. There is plaque in the proximal internal carotid arteries. There is 0% stenosis of the proximal right internal carotid artery relative to normal distal artery lumen diameter (NASCET c riteria). There is 51% stenosis of the proximal left internal carotid artery relative to normal distal artery lumen diameter. There is severe cervical spondylosis. IMPRESSION: 1. Moderate nonspecific cerebral white matter disease, which likely represents chronic small vessel ischemic disease. 2. No aneurysm or significant intracranial arterial stenosis. 3. 0% stenosis of the proximal right internal carotid artery relative to normal distal artery lumen diameter (NASCET criteria). 4. 51% stenosis of the proximal left internal carotid artery relative to normal distal artery lumen diameter. Reviewed, dictated and finalized at location E.
--- OUTSIDE RECORDS SUMMARY | 2025-07-19 18:22 | XMS_ITS | Clinical Summary ---
Author Organization [facility] Address [address] [place] [address] Care Team Providers Care Equipment Worker Name Role Phone Bunny Aviles MD Primary Care Provider [phone] Allergies Active Allergy Reactions Criticality Noted Date [...] (03/26/2020): Added automatically from request for surgery [id number] Polyp of cecum 07/29/2019 Overview (07/29/2019): Added automatically from request for surgery [id number] Pseudophakia of both eyes 07/17/2015 Overview (07/02/2018): [...] (05/17/2018): Added automatically from request for surgery [id number] Pseudophakia of left eye 05/16/2018 Assessment & [...] on file Legal Sex Female 6:55 PM COMPO CONVEYOR OPERATOR Gender Identity Not on file Sexual Orientation Not on file Obstetrics History Last Filed Vital Signs Vital Sign Reading Time Taken Comments Blood Pressure 120/70 09/23/2024 10:55 AM COMPO CONVEYOR OPERATOR Pulse 82 09/23/2024 10:55 AM COMPO CONVEYOR OPERATOR Temperature 36.7 C (98 F) 02/20/2024 11:16 AM CDT Respiratory Rate 19 09/23/2024 10:55 AM COMPO CONVEYOR OPERATOR Oxygen Saturation 98% 09/23/2024 10:55 AM COMPO CONVEYOR OPERATOR Inhaled Oxygen Concentration - - Weight 63.5 kg (140 lb) 09/23/2024 10:55 AM COMPO CONVEYOR OPERATOR Height 157.5 cm (5' 2) 09/23/2024 10:55 AM COMPO CONVEYOR OPERATOR Body Mass Index 25.61 09/23/2024 10:55 AM COMPO CONVEYOR OPERATOR Plan of Treatment Health Maintenance Due Date Last Done Comments Depression Screening 1942 DTaP/Tdap/Td Vaccine (1 - Tdap) 1953 Hepatitis B Screening 1960 Well Visit 65+ 2007 Zoster Vaccine (2 of 3) 04/09/2013 02/12/2013 Osteoporosis Screening-Bone Density Scan 02/09/2014 02/10/2012, 02/10/2012 Fall Risk Assessment 04/29/2021 04/29/2020 Covid-19 Vaccine (2024-11 6 season) 2025 06/20/2022, 01/10/2022, 07/13/2021, Additional history exists Influenza Vaccine (#1) 2025 , 06/20/2022, 07/07/2021, Additional history exists Pneumococcal vaccine 65+ Completed 019, 07/26/2017, 07/24/2017 Medical Devices Implanted Type Area Fruit And Vegetable Parer Device Identifier Shelf Expiration Date Model / Serial / Lot [employer] [id number] Tecnis Protec Tecnis Itec 6mm 13mm 1 Piece Anterior Aspheric - [id number] - [id number] Implanted:Qty: 1 on 06/21/2018 by Mary Torrez MD at [facility] Right: Eye [employer] 09/28/2020 [id number] / [id number] / Insurance [place] [employer] MEDICARE MEDICARE MEDICARE Advance Directives For more information, please contact: [phone] * Full Code (Latest Code Status on File) Date Activated Date Inactivated Comments 04/29/2020 8:42 AM 04/29/2020 2:33 PM * Full Code Date Activated Date Inactivated Comments 09/03/2019 9:40 AM 09/03/2019 5:00 PM Care Teams Equipment Worker Relationship Specialty Start Date End Date Bunny Aviles MD [address] [place] [address] PCP - General Family Medicine 10/30/23
--- OUTSIDE RECORDS SUMMARY | 2025-07-19 18:22 | XMS_ITS | Data Portability ---
Author Organization [facility] JENNYGary Address [address] [place] [address] Assessment No assessment recorded. Plan of Treatment Reminders Order Date Submit Date Provider Last Modified By Organization Details Last Modified Time Details Appointments None recorded. Lab None recorded. Referral dermatologi st referral 2023 JAKI Mota MD (Dermatology) , [address] [facility] [address], [address], [place], [address], 5 12:04:23 Procedures None recorded. Surgeries None recorded. Imaging None recorded. Medication Orders quetiapine 25 mg tablet 2023 024 [id number], [address] , [place], [place], [id number], 4 12:53:46 Seroquel 25 mg tablet 2023 024 [id number], [address] [place], [place], [id number], 4 14:53:19 Patient TargetsNo targets recorded. Patient InstructionsNo instructions recorded. 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 Referral for D isorder of skin New onset appearance non pigmented facial nodules Referring Physician: Drew Bella, Internal Medicine, Encounter Date: 06/20/2024 Results Created Date Observation Date Name Description Value Unit Range Abnormal Flag Note LastModifiedBy Organization Detail LastModifiedTime 05/20/20 24 05/22/2024 Patho logy study pathology study [facility] al Depart ment of Labora tory Medici ne [address] [place] [address] Teleph one: [phone], extens ion [id number] Pathol ogy Report Surgic al Pathol ogy Report Name: KELLEE WAN en #: [id number] Age: [birth year] (Age: 83) Locati on: [facility] Sex: F Proced ure Date: Hospit al #: [id number] Date Receiv ed: Date Report ed: [...] and sign out were perfor med at [facility], [address] [place] [address]. FINAL DIAGNO SIS: Gallbl adder, cholec ystect devora: -Chron ic cholec ystiti s. -Marley lithia sis. Elec tronic ally Signed Out CALLY CASE MD PATHO LOGY [facility] elida Depar tment of Labor atory Medic ine [address] [place] [address] Telep homer: , exten yamilte 07 Patho logy Repor t Surgi sandy Patho logy Repor t Name: KELLEE LLOYD Speckandice men #: [id number] Age: 1209/19 (Age: 83) Locat ion: [facility] Sex: F Proce dure Date: 2023 Hospi elida #: [id number] Date Recei connie: 2023 Date Repor [...] and sign out were perfo rmed at [facility], [address] [facility], [place] [address] . 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 -Chol elith iasis . Jenna ctron icall y Nicki d Out HARJIT CASE MD [facility] Not Available Not Available 02/19/2025 13:56:34 Result Notes None recorded. Problems Name Problem SNOMED Code Status Onset Date Resolution Date Notes Provider Name and Address Organization Details Recorded Time Primary degenerative dementia of the Alzheimer type, senile onset 943903501 Active 2023 Drew Bella MD Attn: Tasneem lucas,[address] [facility], [place], [address], [facility] 4 14:59:54 Median fissure of lip 991307084 Active 2023 Drew Bella MD Attn: Yoselinnew lucas,[address] [facility], [place], [address], [facility] - SI 4 15:02:13 Agitation due to dementia 944428929 Active 2023 Drew Bella MD Attn: Yoselinnew lucas,[address] [facility], [place], [address], [facility] - [facility] 4 14:50:40 Disorder of skin 08691702 Active 2023 Drew Bella MD Attn: Yoselinnew lucas,[address] [facility], [place], [address], [facility] - [facility] 4 12:47:47 Problem Notes None recorded. Procedures Surgical History Date Name Laterality Status Provider Name and Address Organization Details Recorded Time Appendectomy completed Yoni Walker MA [facility] 06/20/2024 12:10:35 Imaging Results None recorded. Procedure [...] Address Organization Details Last Updated DateTime 4 62764.5 2 g 25 kg/m2 160.02 cm 98 % 98 % 98 [degF] 87 /min 152/82 mm[Hg] Mariola Barrett MA [facility] 4 14:25:55 Date Recorded Body height Body mass index (BMI) Body weight Heart rate Oxygen saturation Oxygen saturation in Arterial blood by Pulse oximetry Systolic And Diastolic Provider Name and Address Organization Details Last Updated DateTime 4 160.02 cm 25 kg/m2 40420.5 2 g 87 /min 98 % 98 % 154/78 mm[Hg] Mariola Barrett MA [facility] 4 12:47:34 Date Recorded Body height Body mass index (BMI) Body weight Heart rate Oxygen saturation Oxygen saturation in Arterial blood by Pulse oximetry Systolic And Diastolic Provider Name and Address Organization Details Last Updated DateTime 4 160.02 cm 24.4 kg/m2 24198.6 7 g 82 /min 95 % 95 % 111/71 mm[Hg] Yoni Walker MA [facility] 4 12:18:20 Social History Question Answer Notes LastModified by Organizat ion Details LastModified Time Tobacco Smoking Status Never Smoker CARLIE Epstein, GILDA - [facility] 01/30/2024 14:23:21 Do You Have An Advance [...] Functional Status Question Answer Note LastModified by [employer] ion Details LastModified Time Do you use [...] 06/20/2024 Are you able to care for yourself independently? Yes Information not available 06/20/2024 Mental Status Question Answer Note LastModified by Organization D etails LastModified Time Do you feel stressed (tense, restless, nervous, or anxious, or unable to sleep at night)? [id number] Information not available 06/20/2024 Family History Relationship [...] Skin Problems N Anemia N Heart Attack (TN) N Anxiety Disorder N Diabetes N Muscle, [...] PF 4 completed Yoni Walker [place], [place] - [facility] 06/20/2024 12:16:41 COVID-19, mRNA, LNP-S, PF, maxim-sucrose, 30 mcg/0.3 mL 4 completed Yoni Walker [place] - [facility] 06/20/2024 12:16:41 Past Encounters Encounter ID Performer Location Encounter Start Date Encounter Closed Date Diagnosis/Indication Diagnosis SNOMED-CT Code Diagnosis ICD10 Code Diagnosis IMO Codes Diagnosis Note [id number] MD Merline Gentile (Adult Med) [address] [place] [phone] 01/30/2024 13:42:07 01/31/2024 12:13:51 Primary degenerative dementia of the Alzheimer type, senile onset 980356308 G30.1 F/U neurologis t Median fissure of lip 40 0901051 K13.0 Continue dental cream [id number] Drew Bella MD [facility] (Adult Med) [address] [place] [phone] 03/26/2024 12:18:25 03/28/2024 14:52:01 Agitation due to dementia 218980582 F03.649 [id number] Drew Bella MD [facility] (Adult Med) [address] [place] [phone] 06/20/2024 11:51:02 06/21/2024 11:36:36 Disorder of skin 58483074 L98.9 Agitation due to dementia 007292104 F03.911 Will increase seroquel Health Concerns Section Related Observation LastModified by Organization Detai ls LastModified Time None Recorded Concern Status LastModified by Organization Details LastModified Time None Recorded Advance Directives Directive Y: Payers Insurance Date Sequence Insurance Name Policy Number Policy Berrios Covered Member ID Berrios Member ID Guarantor Name 03/26/2024 2 [place] - [place] Kellee Wan [id number] Kellee [place] 06/17/2024 [place] - [facility] Kellee K [place] [id number] Kellee [place] 06/21/2024 2 [employer] - PLAN F (MEDICARE SUPPLEMENT) Kellee [place] [id number] Kellee [place] 06/17/2024 1 [place] Kellee K [place] [id number] Kellee [place] 03/26/2024 1 [place] Kellee [place] [id number] Kellee [place] Notes Date Note Type Note Provider Name and Address Organization Details Recorded Time 01/30/2024 text/html Changing PCP Drew Bella MD Attn: Accounting[address] [facility], [place], [address], [facility] 01/30/2024 15:05:52 03/26/2024 text/html Here with Mr Rosario because of stress that is apparent in the evening. This appears to be increasing in the past couple months. Aricept had been stopped because of side effect Drew Bella MD Attn: [address]ing[address] [facility], [place], [address], [facility] 03/26/2024 14:53:56 06/20/2024 text/html Here with her . Her is concerned about her restlesness prior to going to bed. Her is also concerned about facial skin nodules Appetite appears good Drew Bella MD Attn: Accounting,[address] [facility], [place], [address], [facility] 06/20/2024 12:58:50 OBGyn Episode No OBEpisode recorded.
--- OUTSIDE RECORDS SUMMARY | 2025-07-19 18:22 | XMS_ITS | Encounter Summary ---
Author Organization [facility] Address 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
--- OUTSIDE RECORDS SUMMARY | 2025-07-19 18:22 | XMS_ITS | Clinical Summary ---
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
--- OUTSIDE RECORDS SUMMARY | 2025-07-19 18:22 | XMS_ITS | Encounter Summary ---
Author Organization [employer] Address 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
--- OUTSIDE RECORDS SUMMARY | 2025-07-19 18:22 | XMS_ITS | Clinical Summary ---
Author Organization [facility] Address [address] [place] [address] Care Team Providers Care Database Management Specialist Name Role Phone Drew Bella MD Primary [...] Years (1 - 1-dose 75+ series) 2017 PHQ-2 (Physician Laurel Bloomery) 10/09/2024 COVID-19 Vaccine ( - 2023-2 5 season) 2025 Influenza Adult (#1) 2025 Meningococcal B Vaccine Aged Out No l onger eligible based on patient's age to complete this topic Meningococcal Vaccine Aged Out No isabella francine eligible based on patient's age to complete this topic RSV Immunizations Under 20 Months Aged Out No longer eligible based on patient's age to complete this topic Insurance MEDICARE Care Teams Database Management Specialist Relationship Specialty Start Date End Date Drew Bella MD PCP - General INTERNAL MEDICINE 03/07/24
--- NOTE | 2025-07-19 18:35 | ECG_ITS ---
Test Date: 2025-07-19 19:09:17 Measurements Intervals [place] Rate: 110 P: 52 MD: 137 QRS: 69 QRSD: 69 T: 52 QT: 320 QTc: 434 Interpretive Statements SINUS TACHYCARDIA BASELINE ARTIFACT- I, II, III, AVR, AVL, AVF, V1 ABNORMAL ECG Compared to ECG 04/20/2025 12:45:02 HEART RATE HAS INCREASED Electronically Signed On 07-19-2025 19:30:51 CDT by Walter Peralta D.O.
--- NOTE | 2025-07-19 18:36 | ED.WEAKNESS ---
HPI - Weakness General Chief complaint: Weakness <Yana Steiner APRN - Last Filed: 07/20/25 02:13> Stated complaint: lethargic <Yana Steiner APRN - Last Filed: 07/20/25 02:13> Time Seen by Provider: 07/19/25 18:09 <Yana Steiner APRN - Last Filed: 07/20/25 02:13> History of Present Illness HPI Narrative: Patient is an 84-year-old female who presents to the ER with increased agitation, weakness and altered mental status. She has a history of dementia so her provided her history. Patient's reports she was given her medicine around 430pm. Approximately 5 minutes later reports she had approximately 1 cup of clear emesis. Afterwards patient became weak and her reports she seemed to collapse and was less responsive. The patient's reports she has a history of advanced dementia and is only alert and oriented x1 at baseline. He denies any recent fevers, complaints of pain, or decreased p.o. intake. <Yana Steiner APRN - Last Filed: 07/20/25 02:13> Related Data Home medications: Home Medications ?Medication ?Instructions ?Recorded ?Confirmed ?Last Taken ?Type cholecalciferol (vitamin D3) 100 100 mcg PO DAILY 04/21/25 07/20/25 05/21/25 History mcg (4,000 unit) tablet <Yana Steiner APRN - Last Filed: 07/20/25 02:13> Allergies/Adverse reactions: Allergies Allergy/AdvReac Type Severity Reaction Status Date / Time Sulfa (Sulfonamide Allergy Hives Verified 07/19/25 18:14 Antibiotics) <Yana Steiner APRN - Last Filed: 07/20/25 02:13> Review of Systems Review of Systems: All systems reviewed & are unremarkable except as noted in HPI and below <Yana Steiner APRN - Last Filed: 07/20/25 02:13> PMFSH Past Medical History Medical History: Medical History Follow up Schatzki's ring Hiatal hernia Dementia DJD (degenerative joint disease) of knee Encounter to establish care [facility] BMI 25.0-25.9,adult Dysphagia Colonoscopy planned 07/26/2019 09/03/2019- Removed polyp Osteoporosis GERD (gastroesophageal reflux disease) Arthritis <Yana Steiner APRN - Last Filed: 07/20/25 02:13> Family History Family History: Family History Father Hypertension Heart disease Mother Alzheimer disease Sibling Breast cancer Grandparent Hypertension <Yana Steiner APRN - Last Filed: 07/20/25 02:13> Social History Social History: Social History Smoking status: Never smoker Second hand tobacco smoke exposure: No Alcohol intake: unknown Substance use: unknown Substance use type: does not use Do You Feel Safe in your Home?: Yes Lack of Transportation: No Lack of Food: Never True Current Housing: I Have Housing Concerned About Future Housing: No Difficulty Paying Gas/Electric Bills: No Difficulty Paying for Meds: No Currently Unemployed: No Difficulty w/ Childcare or Family Care: No Living arrangements: with family Additional living arrangements comments: with sp Gender identity (if verbalized by the patient): Female Spiritual care concerns: No <Yaan Steiner APRN - Last Filed: 07/20/25 02:13> Exam Narrative: GENERAL: Well appearing, well-nourished, non-toxic, in no acute distress. HEAD: Normocephalic, atraumatic. NECK: Supple. No adenopathy, no masses. RESPIRATORY: Airway patent, respirations nonlabored. Clear to auscultation bilaterally, no rales, rhonchi, wheezing. CARDIOVASCULAR: Tachycardia without murmurs, rubs, or gallops. Peripheral pulses 2+ and equal bilaterally. ABDOMINAL: Soft, nontender, nondistended, no hepatosplenomegaly. Normoactive BS. MUSCULOSKELETAL: Moves all extremities. Strength/ROM intact without gross deformities. SKIN: Warm, dry, pallor. No rashes. NEURO: A&O X1. Speech clear. <Yana Steiner APRN - Last Filed: 07/20/25 02:13> Course ASSAYER/PA Physician Supervision This visit was performed by both a physician and an APC. I performed all aspects of the MDM as documented. <James Silvestre, DO - Last Filed: 07/20/25 05:11> Vital Signs Vital signs: Vital Signs Temperature 99.2 F 07/19/25 18:04 Pulse Rate 113 H 07/19/25 18:04 Respiratory Rate 20 07/19/25 18:04 Blood Pressure 130/108 H 07/19/25 18:04 Pulse Oximetry 92 07/19/25 18:04 Oxygen Delivery Room Air 07/19/25 18:04 Temperature 99.2 F 07/19/25 18:04 Pulse Rate 85 07/20/25 02:31 Respiratory Rate 18 07/20/25 02:31 Blood Pressure 123/54 L 07/20/25 02:30 Pulse Oximetry 98 07/20/25 02:17 Oxygen Delivery Room Air 07/19/25 18:04 <Yana Steiner, PRINT DEVELOPER - Last Filed: 07/20/25 02:13> Vital Signs Temperature 99.2 F 07/19/25 18:04 Pulse Rate 113 H 07/19/25 18:04 Respiratory Rate 20 07/19/25 18:04 Blood Pressure 130/108 H 07/19/25 18:04 Pulse Oximetry 92 07/19/25 18:04 Oxygen Delivery Room Air 07/19/25 18:04 Temperature 99.2 F 07/19/25 18:04 Pulse Rate 85 07/20/25 02:31 Respiratory Rate 18 07/20/25 02:31 Blood Pressure 123/54 L 07/20/25 02:30 Pulse Oximetry 98 07/20/25 02:17 Oxygen Delivery Room Air 07/19/25 18:04 <James Silvestre, DO - Last Filed: 07/20/25 05:11> MDM - Weakness MDM Narrative Medical decision making narrative: Patient is an 84-year-old female who presents to the ER with increased agitation, weakness and altered mental status. She has a history of dementia so her provided her history. Patient's reports she was given her medicine around 430pm. Approximately 5 minutes later reports she had approximately 1 cup of clear emesis. Afterwards patient became weak and her reports she seemed to collapse and was less responsive. The patient's reports she has a history of advanced dementia and is only alert and oriented x1 at baseline. He denies any recent fevers, complaints of pain, or decreased p.o. intake. Labs Ordered: CBC, CMP, COVID/flu/RSV, CRP, lactic acid, UA, PTT, INR, blood cultures Imaging Ordered: Chest x-ray Medications Ordered: 2 L normal saline IV bolus Results: Pt's CT scan indicates 1. Limited study. Trace focus of subarachnoid hemorrhage versus subdural suspected adjacent to the right temporal lobe. Follow-up is recommended to assess. 2. Probable underlying normal pressure hydrocephalus. Patient's CTA scan indicates negative CT angiogram of the head. The dural venous sinuses are patent. No comparisons. Her CTA neck indicates an 80% stenosis of the proximal left ICA with moderate calcified atherosclerotic plaque. No comparisons. Bronchitis. Prominent mediastinal and hilar lymph nodes. There is a critical spinal canal stenosis at C5-C6. Recommend MRI of the cervical spine to evaluate for myelopathy. Remote fracture deformity of the T2 segment. Diagnosis: Altered mental status, weakness Consults: care coordination Results of imaging and lab work shared with patient and her . It was advised patient be admitted to the hospital for further evaluation and care coordination. Extensive conversation between nurse practitioner and patient's to discuss options for patient. These options included discussion hospice versus alf placement versus home health care options. Her verbalized understanding and acknowledges he has many things to discuss with pt's daughter. He also acknowledges his understanding that pt is not going to get better. Pt's understands that her acute weakness and altered mental status may be due to her urinary tract infection versus recent medication changes versus stroke versus acute dementia changes. He will discuss all of this with pt's daughter in the morning. Patient's is in agreement with plan for admission. <Yana Steiner APRN - Last Filed: 07/20/25 02:13> Differential Diagnosis Differential diagnosis: Likely rhabdomyolysis, sepsis, dehydration and other (urinary tract infection, stroke, TIA, medication reaction) <Yana Steiner APRN - Last Filed: 07/20/25 02:13> Lab Data Attestation: I reviewed the patient's lab results. <Yana Steiner APRN - Last Filed: 07/20/25 02:13> Result diagrams: 07/19/25 18:58 07/19/25 18:58 <Yanamaximino Steiner, PRINT DEVELOPER - Last Filed: 07/20/25 02:13> Labs: Lab Results 07/19/25 07/19/25 07/19/25 Range/Units 18:58 19:12 20:23 WBC 11.8 H (4.5-10.0) K/mm3 RBC 4.84 (4.2-5.4) M/mm3 Hgb 14.4 (12.0-15.0) g/dL Hct 44.0 (37.0-47.0) % MCV 90.9 (80-100) fl MCH 29.8 (26-34) pg MCHC 32.7 (32-36) g/dl RDW 12.6 (11.5-14.5) % Plt Count 267 (150-375) k/mm3 MPV 9.3 (7.4-10.4) fl Immature Gran % (Auto) 0.5 (0-0.5) % Neut % (Auto) 88.3 H (45.5-73.1) % Lymph % (Auto) 3.9 L (18.3-44.2) % [place] % (Auto) 4.6 (2.6-8.5) % Eos % (Auto) 2.0 (0-4.4) % Baso % (Auto) 0.7 (0.2-1.2) % Lymph # (Auto) 0.46 L (0.9-3.2) K/mm3 [place] # (Auto) 0.5 (0.1-0.6) K/mm3 Eos # (Auto) 0.2 (0-0.3) K/mm3 Baso # (Auto) 0.1 (0.0-0.1) K/mm3 Abs Immat Gran (auto) 0.06 H (0.00-0.031) K/mm3 Absolute Neuts (auto) 10.4 H (1.3-6.7) K/mm3 Absolute Nucleated RBC 0.000 (0.0-0.012) K/mm3 Nucleated RBC % 0.0 (0.0-0.2) % PT 13.0 (11.1-14.7) Seconds INR 1.0 APTT 24.0 (22.3-36.8) Seconds Sodium 132 L (137-145) mmol/L Potassium 4.0 (3.4-5.0) mmol/L Chloride 98 (98-107) mmol/L Carbon Dioxide 25 (22-30) mmol/L Anion Gap 9 (4-12) mmol/L BUN 19 H (7-17) mg/dL Creatinine 0.87 (0.7-1.0) mg/dL Estim Creat Clear Calc 38 ml/min Estimated GFR > 60 (59 - ) Glucose 127 H (65-110) mg/dL Lactic Acid 1.5 (0.7-2.0) mmol/L Calcium 9.3 (8.4-10.2) mg/dL Total Bilirubin 0.7 (0.2-1.3) mg/dL AST 41 H (14-36) U/L ALT 25 (6-35) U/L Alkaline Phosphatase 189 H (38-126) U/L C-Reactive Protein 3.1 H (<1.0) mg/dL Total Protein 8.9 H (6.3-8.2) g/dL Albumin 4.7 (3.5-5.1) g/dL Urine Color Yellow (Yellow) Urine Appearance Clear (Clear) Urine pH 6.0 (5.0-9.0) Ur Specific [place] 1.018 (1.001-1.035) Urine Protein Trace (Negative) mg/dL Urine Glucose (UA) Negative (Negative) mg/dL Urine Ketones 1+ H (Negative) mg/dL Ur Blood (Man) 1+ H (Negative) Urine Nitrate Negative (Negative) Urine Bilirubin Negative (Negative) Urine Urobilinogen 1.0 (<2.0) mg/dL Leukocyte Esterase Rfl 1+ H (Negative) DREW/UL Urine RBC 6-10 H (0-2) /hpf Urine WBC 6-10 H (0-3) /hpf Ur Squamous Epith Cells Occasional (Few) /hpf Urine Bacteria None seen /hpf Urine Casts 0-2 Influenza A (RT-PCR) Negative (Negative) Influenza B (RT-PCR) Negative (Negative) RSV (RT-PCR) Negative (Negative) SARS-CoV-2 RNA (RT-PCR) Negative (Negative) <Yana Steiner, PRINT DEVELOPER - Last Filed: 07/20/25 02:13> Lab Results 07/19/25 07/19/25 07/19/25 Range/Units 18:58 19:12 20:23 WBC 11.8 H (4.5-10.0) K/mm3 RBC 4.84 (4.2-5.4) M/mm3 Hgb 14.4 (12.0-15.0) g/dL Hct 44.0 (37.0-47.0) % MCV 90.9 (80-100) fl MCH 29.8 (26-34) pg MCHC 32.7 (32-36) g/dl RDW 12.6 (11.5-14.5) % Plt Count 267 (150-375) k/mm3 MPV 9.3 (7.4-10.4) fl Immature Gran % (Auto) 0.5 (0-0.5) % Neut % (Auto) 88.3 H (45.5-73.1) % Lymph % (Auto) 3.9 L (18.3-44.2) % [place] % (Auto) 4.6 (2.6-8.5) % Eos % (Auto) 2.0 (0-4.4) % Baso % (Auto) 0.7 (0.2-1.2) % Lymph # (Auto) 0.46 L (0.9-3.2) K/mm3 [place] # (Auto) 0.5 (0.1-0.6) K/mm3 Eos # (Auto) 0.2 (0-0.3) K/mm3 Baso # (Auto) 0.1 (0.0-0.1) K/mm3 Abs Immat Gran (auto) 0.06 H (0.00-0.031) K/mm3 Absolute Neuts (auto) 10.4 H (1.3-6.7) K/mm3 Absolute Nucleated RBC 0.000 (0.0-0.012) K/mm3 Nucleated RBC % 0.0 (0.0-0.2) % PT 13.0 (11.1-14.7) Seconds INR 1.0 APTT 24.0 (22.3-36.8) Seconds Sodium 132 L (137-145) mmol/L Potassium 4.0 (3.4-5.0) mmol/L Chloride 98 (98-107) mmol/L Carbon Dioxide 25 (22-30) mmol/L Anion Gap 9 (4-12) mmol/L BUN 19 H (7-17) mg/dL Creatinine 0.87 (0.7-1.0) mg/dL Estim Creat Clear Calc 38 ml/min Estimated GFR > 60 (59 - ) Glucose 127 H (65-110) mg/dL Lactic Acid 1.5 (0.7-2.0) mmol/L Calcium 9.3 (8.4-10.2) mg/dL Total Bilirubin 0.7 (0.2-1.3) mg/dL AST 41 H (14-36) U/L ALT 25 (6-35) U/L Alkaline Phosphatase 189 H (38-126) U/L C-Reactive Protein 3.1 H (<1.0) mg/dL Total Protein 8.9 H (6.3-8.2) g/dL Albumin 4.7 (3.5-5.1) g/dL Urine Color Yellow (Yellow) Urine Appearance Clear (Clear) Urine pH 6.0 (5.0-9.0) Ur Specific [place] 1.018 (1.001-1.035) Urine Protein Trace (Negative) mg/dL Urine Glucose (UA) Negative (Negative) mg/dL Urine Ketones 1+ H (Negative) mg/dL Ur Blood (Man) 1+ H (Negative) Urine Nitrate Negative (Negative) Urine Bilirubin Negative (Negative) Urine Urobilinogen 1.0 (<2.0) mg/dL Leukocyte Esterase Rfl 1+ H (Negative) DREW/UL Urine RBC 6-10 H (0-2) /hpf Urine WBC 6-10 H (0-3) /hpf Ur Squamous Epith Cells Occasional (Few) /hpf Urine Bacteria None seen /hpf Urine Casts 0-2 Influenza A (RT-PCR) Negative (Negative) Influenza B (RT-PCR) Negative (Negative) RSV (RT-PCR) Negative (Negative) SARS-CoV-2 RNA (RT-PCR) Negative (Negative) <James Silvestre DO - Last Filed: 07/20/25 05:11> Imaging Data Attestation: I personally reviewed and interpreted this imaging study as follows: <Yana Steiner APRN - Last Filed: 07/20/25 02:13> My impression: Pt's CT scan indicates 1. Limited study. Trace focus of subarachnoid hemorrhage versus subdural suspected adjacent to the right temporal lobe. Follow-up is recommended to assess. 2. Probable underlying normal pressure hydrocephalus. Patient's CTA scan indicates negative CT angiogram of the head. The dural venous sinuses are patent. No comparisons. Her CTA neck indicates an 80% stenosis of the proximal left ICA with moderate calcified atherosclerotic plaque. No comparisons. Bronchitis. Prominent mediastinal and hilar lymph nodes. There is a critical spinal canal stenosis at C5-C6. Recommend MRI of the cervical spine to evaluate for myelopathy. Remote fracture deformity of the T2 segment. <Yana Steiner APRN - Last Filed: 07/20/25 02:13> Radiologist's impression: Impressions Head CT 07/19/25 19:44 Impression: 1. Limited study. Trace focus of subarachnoid hemorrhage versus subdural suspected adjacent to the right temporal lobe. Follow-up is recommended to assess. 2. Probable underlying normal pressure hydrocephalus. Chest X-Ray 07/19/25 19:47 Impression: No acute cardiopulmonary abnormality. <Yana Steiner APRN - Last Filed: 07/20/25 02:13> Discharge Plan Discharge Clinical Impression: Acute on chronic alteration in mental status, Weakness, Urinary tract infection, Dehydration <Yana Steiner APRN - Last Filed: 07/20/25 02:13> Patient Disposition: Still a Patient <Yana Steiner APRN - Last Filed: 07/20/25 02:13> Condition: Guarded Prognosis <Yana Steiner APRN - Last Filed: 07/20/25 02:13>
[2025-07-19 19:07] LABS: Hematocrit 44.0 % (37.0-47.0); Hemoglobin 14.4 g/dL (12.0-15.0); Immature Granulocyte Percent A 0.5 % (0-0.5); Lymphocytes Absolute Auto 0.46 K/mm3 (0.9-3.2); Mean Corpuscular HGB Conc 32.7 g/dl (32-36); Mean Corpuscular Hemoglobin 29.8 pg (26-34); Mean Corpuscular Volume 90.9 fl (80-100); Nucleated Red Blood Cells Absolute Auto 0.000 K/mm3 (0.0-0.012); Nucleated Red Blood Cells Perc 0.0 % (0.0-0.2); Platelet Count Result 267 k/mm3 (150-375); Red Blood Count 4.84 M/mm3 (4.2-5.4); White Blood Count 11.8 K/mm3 (4.5-10.0)
[2025-07-19] MEDS: SODIUM CHLORIDE 0.9% IV 1,000 ML 999 ML IV CONT ×2 (19:13→19:14)
[2025-07-19 19:32] LABS: Alanine Aminotransferase 25 U/L (6-35); Albumin Level 4.7 g/dL (3.5-5.1); Alkaline Phosphatase 189 U/L (38-126); Anion Gap 9 mmol/L (4-12); Aspartate Amino Transferase 41 U/L (14-36); Bilirubin,Total 0.7 mg/dL (0.2-1.3); Blood Urea Nitrogen 19 mg/dL (7-17); CRP 3.1 mg/dL (<1.0); Calcium 9.3 mg/dL (8.4-10.2); Carbon Dioxide 25 mmol/L (22-30); Chloride 98 mmol/L (98-107); Estimated CRCL calculation 38 ml/min; Estimated Glomerular Filt Rate > 60; Glucose 127 mg/dL (65-110); Potassium 4.0 mmol/L (3.4-5.0); Sodium 132 mmol/L (137-145); Total Protein 8.9 g/dL (6.3-8.2)
[2025-07-19 19:35] LABS: INR 1.0; Prothrombin Time 13.0 Seconds (11.1-14.7)
[2025-07-19 19:36] LABS: Partial Thromboplastin Time 24.0 Seconds (22.3-36.8)
[2025-07-19 19:55] LABS: Influenza A QL RT-PCR Negative (Negative); Influenza B QL RT-PCR Negative (Negative); RSV RNA, RT-PCR Negative (Negative); SARS-CoV-2 RNA PCR Negative (Negative)
[2025-07-19 20:34] LABS: Add Urine Microscopic? YES; Appearance Urine Clear (Clear); Glucose Urine UA Negative (Negative); Leukocyte Esterase Ur 1+ LEU/UL (Negative); Nitrate Urine Negative (Negative); Non Pathogenic Casts 0-2; Specific Grav Ur 1.018 (1.001-1.035)
[2025-07-19] MEDS: diazePAM INJ (*CRX) 10 MG/2 ML SYRINGE 5 MG IV PUSH (21:23)
[2025-07-20] VITALS (20 sets, daily range): BP systolic 115–143; BP diastolic 49–70; PULSE 81–105; RESP 14–25; TEMP 36.1–36.3; O2SAT 97–100; BMI 25.2
[2025-07-20] MEDS: cefTRIAXone 1 GM in SODIUM CHLORIDE 0.9% IV 50 ML 100 ML IVPB ×2 (00:20→21:33)
[2025-07-20] MEDS: diazePAM INJ (*CRX) 10 MG/2 ML SYRINGE 5 MG IV PUSH (01:49)
[2025-07-20] MEDS: SODIUM CHLORIDE 0.9% IV 1,000 ML 125 ML IV CONT ×3 (02:49→21:33)
--- NOTE | 2025-07-20 03:58 | PC.NURSE ---
ATTEMPTED TO CALL TO GET MEDICATION CLARIFICATIONS AND HISTORY. BECAME UPSET ABOUT ME CALLING HIM. SAID WE SHOULD HAVE ALL THIS INFORMATION AND I SHOULD NOT HAVE CALLED HIM.
--- NOTE | 2025-07-20 04:49 | ADMGEN ---
This patient, Kellee Covarrubias, was admitted to Medical Room 349-01. Patient/family oriented to hospital policies and general routines including ID bracelet, bed and alarms, visiting hours, pain management, procedures, bathroom and other care routines, personal items, smoking policy, room service/diet, and visiting hours. Information on how to activate the Rapid Response Team has been discussed. Patient/Family are encouraged to report perceived risks to care and to ask questions if they do not understand what they are told or what they should do. called at home.
--- NOTE | 2025-07-20 05:47 | PM.IMHP ---
H&P: HPI History of Present Illness Date/Time: 07/20/25 05:47 Chief Complaint: Increased weakness, vomiting Narrative: He 84-year-old female with past medical history of dementia with behaviors, chronic urinary incontinence, hiatal hernia, esophageal ring with EGD 05/22/2025 who presented to the ER from home via EMS due to increased weakness and 1 episode of vomiting. The patient is only alert oriented to person and the fact that she is in the hospital her reported to ER staff that this is her baseline. She is unable to provide me with any other history. Not patient's reported to the ER staff that the patient's Seroquel was increased a couple of days ago. Medications were increased due to increasing behavior issues. The patient has been increasingly weak and not able to get up. She did have 1 episode of emesis which is what caused the patient's to call EMS to bring her in for evaluation. She had been started on nitrofurantoin as outpatient on the 17 of July for possible UTI. We do not have access to the patient's outpatient UA and we do not know if a culture had been obtained. But her urine in the ER was not suggestive of acute UTI. Although her urine findings today could be suggestive of a treated UTI. The patient was incontinent of urine in the ER and was dribbling constantly without any large voids. Subsequently De Los Santos catheter was placed to evaluate for possible obstruction and for accurate I&O's. The patient was started on empiric antibiotic therapy with Rocephin to treat possible incompletelytreated UTI and the patient was admitted to the medical floor. After transport to the medical floor the patient had another 2 episodes of emesis. I did place or for Phenergan but patient had no further emesis after transport. When I went to evaluate the patient the patient did grimace when I was palpating her abdomen in her abdomen was somewhat distended. The patient had been incontinent of stool but is not unusual for to be incontinent of stool from time to time according to outpatient documentation. Review of Systems Review of Systems: Unobtainable due to patient's history of dementia. [facility] Past Medical History Medical History (Updated 07/20/25 @ 05:58 by Peri Saleh DO) Functional urinary incontinence Schatzki's ring Hiatal hernia Dementia DJD (degenerative joint disease) of knee BMI 25.0-25.9,adult Osteoporosis GERD (gastroesophageal reflux disease) Arthritis Surgical History Surgical History (Updated 07/20/25 @ 05:55 by Peri Saleh DO) Hx of cholecystectomy History of esophagogastroduodenoscopy (EGD) History of colonoscopy with polypectomy (~2019) Family History Family History Father Hypertension Heart disease Mother Alzheimer disease Sibling Breast cancer Grandparent Hypertension Social History Social History (Updated 07/20/25 @ 05:56 by Peri Saleh DO) Social History: Code status: Full code (per EMR) Surrogate decision maker: Smoking status: Never smoker Second hand tobacco smoke exposure: No Alcohol intake: unknown Substance use: unknown Substance use type: does not use Do You Feel Safe in your Home?: Yes Lack of Transportation: No Lack of Food: Never True Current Housing: I Have Housing Concerned About Future Housing: No Difficulty Paying Gas/Electric Bills: No Difficulty Paying for Meds: No Currently Unemployed: No Difficulty w/ Childcare or Family Care: No Living arrangements: with family Additional living arrangements comments: with sp Gender identity (if verbalized by the patient): Female Spiritual care concerns: No Meds Home Medications and Allergies Home Medications ?Medication ?Instructions ?Recorded ?Confirmed ?Type memantine 10 mg tablet 10 mg PO BID #60 tabs 03/04/25 07/20/25 Rx cholecalciferol (vitamin D3) 100 100 mcg PO DAILY 04/21/25 07/20/25 History mcg (4,000 unit) tablet pravastatin 40 mg tablet 40 mg PO DAILY #90 tabs 04/21/25 07/20/25 Rx trazodone 50 mg tablet 100 mg (2 x 50 mg) PO QHS PRN 07/09/25 07/20/25 Rx insomnia #180 tabs quetiapine 100 mg tablet 100 mg PO QHS #90 tabs 07/16/25 07/20/25 Rx quetiapine 25 mg tablet 25 mg PO QAM #90 tabs 07/16/25 07/20/25 Rx nitrofurantoin 100 mg PO Q12H 7 days #14 caps 07/17/25 07/20/25 Rx monohydrate/macrocrystals 100 mg capsule (Macrobid) Allergies Allergy/AdvReac Type Severity Reaction Status Date / Time Sulfa (Sulfonamide Allergy Hives Verified 07/19/25 18:14 Antibiotics) Vital Signs Vital Signs - 24 hr 07/19/25 18:04 07/19/25 19:16 07/19/25 20:00 Temperature 99.2 F Pulse Rate 113 H 112 H 102 H Respiratory Rate 20 31 H 18 Blood Pressure 130/108 H Pulse Oximetry 92 98 97 Oxygen Delivery Room Air 07/19/25 20:24 07/19/25 20:30 07/19/25 21:16 Temperature Pulse Rate 104 H 99 101 H Respiratory Rate 19 15 8 L Blood Pressure 129/57 L Pulse Oximetry 98 98 98 Oxygen Delivery 07/19/25 21:17 07/19/25 21:24 07/19/25 21:30 Temperature Pulse Rate 103 H 96 95 Respiratory Rate 11 L 20 16 Blood Pressure 127/53 L Pulse Oximetry 96 97 97 Oxygen Delivery 07/19/25 21:46 07/19/25 22:00 07/19/25 22:02 Temperature Pulse Rate 90 88 87 Respiratory Rate 15 15 14 Blood Pressure 93/42 L Pulse Oximetry 96 96 96 Oxygen Delivery 07/19/25 22:15 07/19/25 23:03 07/19/25 23:23 Temperature Pulse Rate 91 98 83 Respiratory Rate 15 18 14 Blood Pressure Pulse Oximetry 99 98 Oxygen Delivery 07/19/25 23:30 07/19/25 23:31 07/19/25 23:59 Temperature Pulse Rate 82 81 80 Respiratory Rate 16 16 13 Blood Pressure 93/43 L Pulse Oximetry Oxygen Delivery 07/20/25 00:00 07/20/25 00:01 07/20/25 00:29 Temperature Pulse Rate 81 82 83 Respiratory Rate 14 14 14 Blood Pressure 115/61 Pulse Oximetry 98 Oxygen Delivery 07/20/25 00:30 07/20/25 00:31 07/20/25 00:45 Temperature Pulse Rate 84 83 81 Respiratory Rate 15 19 15 Blood Pressure 136/70 Pulse Oximetry 98 100 97 Oxygen Delivery 07/20/25 01:05 07/20/25 01:15 07/20/25 01:30 Temperature Pulse Rate 82 81 81 Respiratory Rate 17 15 16 Blood Pressure 125/61 Pulse Oximetry 99 Oxygen Delivery 07/20/25 01:31 07/20/25 01:45 07/20/25 02:17 Temperature Pulse Rate 99 95 83 Respiratory Rate 25 H 15 16 Blood Pressure Pulse Oximetry 98 Oxygen Delivery 07/20/25 02:30 07/20/25 02:31 Temperature Pulse Rate 85 85 Respiratory Rate 19 18 Blood Pressure 123/54 L Pulse Oximetry Oxygen Delivery Exam Narrative: Weight 66.6 kg BMI 25.2 Const: Other: Mildly ill-appearing, elderly, debilitated HENMT: Other: Mucous membranes are dry, no oral pharyngeal erythema, fair dentition Eyes: Other: Pupils are equal and reactive, no scleral icterus, no conjunctival pallor Neck: Other: No JVD, no lymphadenopathy Resp: Other: Clear to auscultation bilaterally, no increased work of breathing Cardio: Other: Regular rate, regular rhythm, 2+ bilateral radial pedal pulses, 2/6 systolic murmur GI: Other: Hyperactive bowel sounds, distended, generalized tenderness to palpation, no organomegaly : Other: De Los Santos catheter in place with cloudy yellow urine Skin: Other: Generalized pallor, non jaundice, normal temperature to touch Neuro: Other: Alert oriented to person and fact that she has a Hospital, she cannot name the hospital, she does not know the year and thinks that the month is March Extrem: Other: No clubbing, cyanosis or edema, 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 Psych: Other: Confused, restless, impulsive H&P: Results Labs Labs: Laboratory Tests 07/19/25 18:58 07/19/25 18:58 07/19/25 07/19/25 07/19/25 18:58 19:12 20:23 WBC 11.8 H RBC 4.84 Hgb 14.4 Hct 44.0 MCV 90.9 MCH 29.8 MCHC 32.7 RDW 12.6 Plt Count 267 MPV 9.3 Immature Gran % (Auto) 0.5 Neut % (Auto) 88.3 H Lymph % (Auto) 3.9 L Desha % (Auto) 4.6 Eos % (Auto) 2.0 Baso % (Auto) 0.7 Lymph # (Auto) 0.46 L Desha # (Auto) 0.5 Eos # (Auto) 0.2 Baso # (Auto) 0.1 Abs Immat Gran (auto) 0.06 H Absolute Neuts (auto) 10.4 H Absolute Nucleated RBC 0.000 Nucleated RBC % 0.0 PT 13.0 INR 1.0 APTT 24.0 Sodium 132 L Potassium 4.0 Chloride 98 Carbon Dioxide 25 Anion Gap 9 BUN 19 H Creatinine 0.87 Estim Creat Clear Calc 38 Estimated GFR > 60 Glucose 127 H Lactic Acid 1.5 Calcium 9.3 Total Bilirubin 0.7 AST 41 H ALT 25 Alkaline Phosphatase 189 H C-Reactive Protein 3.1 H Total Protein 8.9 H Albumin 4.7 Urine Color Yellow Urine Appearance Clear Urine pH 6.0 Ur Specific [place] 1.018 Urine Protein Trace Urine Glucose (UA) Negative Urine Ketones 1+ H Ur Blood (Man) 1+ H Urine Nitrate Negative Urine Bilirubin Negative Urine Urobilinogen 1.0 Leukocyte Esterase Rfl 1+ H Urine RBC 6-10 H Urine WBC 6-10 H Ur Squamous Epith Cells Occasional Urine Bacteria None seen Urine Casts 0-2 Influenza A (RT-PCR) Negative Influenza B (RT-PCR) Negative RSV (RT-PCR) Negative SARS-CoV-2 RNA (RT-PCR) Negative Impressions Head CT 07/19/25 19:44 Impression: 1. Limited study. Trace focus of subarachnoid hemorrhage versus subdural suspected adjacent to the right temporal lobe. Follow-up is recommended to assess. 2. Probable underlying normal pressure hydrocephalus. Chest X-Ray 07/19/25 19:47 Impression: No acute cardiopulmonary abnormality. EKG: Test Date: 2025-07-19 19:09:17 Measurements Intervals [place] Rate: 110 P: 52 OH: 137 QRS: 69 QRSD: 69 T: 52 QT: 320 QTc: 434 Interpretive Statements SINUS TACHYCARDIA BASELINE ARTIFACT- I, II, III, AVR, AVL, AVF, V1 ABNORMAL ECG Compared to ECG 04/20/2025 12:45:02 HEART RATE HAS INCREASED Assessment and Plan Assessment and plan (1) Dehydration: Code(s): E86.0 - Dehydration Status: Acute (2) Urinary tract infection: Qualifiers: Hematuria presence: without hematuria Urinary tract infection type: acute cystitis Qualified Code(s): N30.00 - Acute cystitis without hematuria Code(s): N39.0 - Urinary tract infection, site not specified Status: Acute (3) Weakness: Code(s): R53.1 - Weakness Status: Acute (4) Acute on chronic alteration in mental status: Code(s): R41.82 - Altered mental status, unspecified Status: Acute (5) Vomiting: Qualifiers: Nausea presence: unspecified Vomiting type: unspecified Qualified Code(s): R11.10 - Vomiting, unspecified Code(s): R11.10 - Vomiting, unspecified Status: Acute Plan The patient reportedly had testing for or UTI as outpatient and was started on antibiotics with nitrofurantoin. She patient only had a couple of doses of antibiotics she. reports patient has had increased weakness in started having vomiting. UA in the ER is not suggestive of UTI but cultures pending. She could have incompletely treated UTI or the patient's increased urinary incontinence and increased weakness could be due to progressive decline from her dimension dehydration. Patient has been started empiric antibiotic therapy with Rocephin while awaiting for lab results. She patient did receive IV fluid hydration of 3 L in the ER. She will continue maintenance IV fluids and re-evaluate with repeat CBC and electrolyte panel in a.m.. Patient is having episodes of emesis in has had a history of hiatal hernia and esophageal ring in the past. Will place patient on famotidine. The will continue the patient's home Seroquel but will decrease the dose back down to 50 mg at night as increased dose may also be contributing to the patient's increased weakness. And will schedule the patient's trazodone. The patient does seem to have moderate amount discomfort on palpation of her abdomen with some hyperactive bowel sounds and is slightly distended. Will send patient for CT of the abdomen and pelvis to rule out other secondary cause for vomiting and abdominal pain. De Los Santos catheter was placed in the ER. Patient did have 80% carotid stenosis and initial CT demonstrated possible subdural but repeat imaging did not support findings of subdural hematoma is likely due to motion artifact causing distortion of imaging. Patient is not having localizing neurologic deficits in acute CVA seems less likely to be causing patient's symptoms. Either way given the patient's advanced dementia and age she would not be a candidate for intervention to treat carotid stenosis or candidate for tPA. It seems much more likely that patient's symptoms are due to medication effect and/or result of UTI and dehydration. ER provider had a goals of care discussion with the patient's . He stated that he would like to talk to his daughter regarding options regarding possible alf placement verses hospice with his daughter and then he will let us know. Care coordination consult has been placed. The patient remains a full code in the computer as code status was not clarified prior to the departure from the hospital and given that he was upset with nursing staff when they called to clarify the med rec I did not feel comfortable calling him to discuss this at this hour. Patient has been admitted as observation status. MEDICAL DECISION MAKING NARRATIVE -Spoke with the ED provider in detail regarding patient's evaluation, workup and management -Patient seen and examined at bedside -Collaborated with patient's nurse at the bedside in detail and addressed all concerns -Labs, electrolytes, radiology, investigations and test results personally reviewed and interpreted unless otherwise specified -ED/Consult/Nursing/Ancilliary notes on the chart reviewed and appreciated Quality VTE Prophylaxis VTE prophylaxis: mechanical ordered (SCDs) Hospitalist MIPS Advance Care Plan I have confirmed that the patient's Advanced Care Plan is present, code status is documented, or surrogate decision maker is listed in patient medical record.: Yes Medication Reconciliation I have utilized all available resources to obtain, update and review the patients current medications (includes all prescriptions, OTC, herbals, cannabis, and nutritional supplements).: Yes
[2025-07-20 09:54] LABS: Hematocrit 38.4 % (37.0-47.0); Hemoglobin 13.0 g/dL (12.0-15.0); Mean Corpuscular HGB Conc 33.9 g/dl (32-36); Mean Corpuscular Hemoglobin 30.4 pg (26-34); Mean Corpuscular Volume 89.7 fl (80-100); Platelet Count Result 241 k/mm3 (150-375); Red Blood Count 4.28 M/mm3 (4.2-5.4); White Blood Count 11.4 K/mm3 (4.5-10.0)
[2025-07-20] MEDS: MEMANTINE 10 MG TABLET PO ×2 (10:12→21:34)
[2025-07-20] MEDS: FAMOTIDINE 20 MG/2 ML VIAL IV PUSH ×2 (10:12→21:33)
[2025-07-20] MEDS: ONDANSETRON INJ 4 MG/2 ML VIAL IV PUSH (10:13)
[2025-07-20] MEDS: CHOLECALCIFEROL (VITAMIN D3) 25 MCG (1,000 UNITS) TABLET 100 MCG PO (10:13)
[2025-07-20 10:23] LABS: Alanine Aminotransferase 24 U/L (6-35); Albumin Level 3.9 g/dL (3.5-5.1); Alkaline Phosphatase 157 U/L (38-126); Anion Gap 8 mmol/L (4-12); Aspartate Amino Transferase 39 U/L (14-36); Bilirubin,Total 0.5 mg/dL (0.2-1.3); Blood Urea Nitrogen 11 mg/dL (7-17); Calcium 8.6 mg/dL (8.4-10.2); Carbon Dioxide 24 mmol/L (22-30); Chloride 103 mmol/L (98-107); Estimated CRCL calculation 52 ml/min; Estimated Glomerular Filt Rate > 60; Glucose 120 mg/dL (65-110); Potassium 3.4 mmol/L (3.4-5.0); Sodium 135 mmol/L (137-145); Total Protein 7.1 g/dL (6.3-8.2)
--- NOTE | 2025-07-20 12:10 | PM.EVENT ---
Event Note Event Note Event Note: Patient is an 84-year-old female admitted for increased generalized weakness likely secondary to UTI, vomiting episode increased confusion and agitation. Per the medical chart patient was brought by EMS after her contacted them due to an episode vomiting in concerns for her increased confusion. Patient has been seen and assessed by previous provider on my follow-up assessment patient was comfortable and resting no agitation noted at this time however did have sitter at bedside. Spouse had returned home requesting later contact but did speak with care coordination regarding discharge planning needs at which time they have discussed returning home on hospice with [facility] hospice care. Patient alert and oriented to self was able to respond to some commands requesting when her spouse was to return. At this patient denied any pain just reported feeling fatigued and tired. Patient was resumed on her home medications continued her Namenda for her dementia as well as Seroquel which was decreased to 50 mg at night and added Risperdal 1 mg b.i.d. for agitation. Vital stable on room air, labs reviewed and unremarkable will continue with IV Rocephin due to previous UTI reported unsure if antibiotic therapy was completed pending urine cultures. Imaging findings were discussed with patient's spouse in the emergency department and per notes they did not want any intervention requesting hospice care.
[2025-07-20] MEDS: OLANZapine 2.5 MG, WATER, STERILE FOR INJECTION 2.1 ML IM (17:20)
[2025-07-20] MEDS: HALOPERIDOL LACTATE 5 MG/ML VIAL IV PUSH (21:31)
[2025-07-21] MEDS: SODIUM CHLORIDE 0.9% IV 1,000 ML 125 ML IV CONT ×3 (05:20→21:20)
[2025-07-21 05:26] VITALS: BP 142/59; PULSE 103; RESP 20; TEMP 36.2; O2SAT 96
[2025-07-21 06:03] LABS: Hematocrit 35.9 % (37.0-47.0); Hemoglobin 12.0 g/dL (12.0-15.0); Mean Corpuscular HGB Conc 33.4 g/dl (32-36); Mean Corpuscular Hemoglobin 30.2 pg (26-34); Mean Corpuscular Volume 90.4 fl (80-100); Platelet Count Result 226 k/mm3 (150-375); Red Blood Count 3.97 M/mm3 (4.2-5.4); White Blood Count 7.6 K/mm3 (4.5-10.0)
[2025-07-21 06:26] LABS: Alanine Aminotransferase 25 U/L (6-35); Albumin Level 3.3 g/dL (3.5-5.1); Alkaline Phosphatase 139 U/L (38-126); Anion Gap 5 mmol/L (4-12); Aspartate Amino Transferase 40 U/L (14-36); Bilirubin,Total 0.4 mg/dL (0.2-1.3); Blood Urea Nitrogen 8 mg/dL (7-17); Calcium 8.3 mg/dL (8.4-10.2); Carbon Dioxide 26 mmol/L (22-30); Chloride 104 mmol/L (98-107); Estimated CRCL calculation 53 ml/min; Estimated Glomerular Filt Rate > 60; Glucose 113 mg/dL (65-110); Potassium 3.2 mmol/L (3.4-5.0); Sodium 135 mmol/L (137-145); Total Protein 6.3 g/dL (6.3-8.2)
[2025-07-21] MEDS: CHOLECALCIFEROL (VITAMIN D3) 25 MCG (1,000 UNITS) TABLET 100 MCG PO (09:47)
[2025-07-21] MEDS: FAMOTIDINE 20 MG/2 ML VIAL IV PUSH ×2 (09:47→21:05)
[2025-07-21] MEDS: MEMANTINE 10 MG TABLET PO ×2 (09:47→21:05)
[2025-07-21] MEDS: POTASSIUM CHLORIDE 20 MEQ ER TABLET 40 MEQ PO (09:50)
[2025-07-21] MEDS: diazePAM INJ (*CRX) 10 MG/2 ML SYRINGE 5 MG IV PUSH (13:15)
[2025-07-21 13:47] VITALS: RESP 12; TEMP 36.8
--- NOTE | 2025-07-21 15:31 | P.DS_ITS ---
DS: Admitting Diagnosis Discharge Date 07/21/2025 Admitting Diagnosis Urinary tract infection DS: Discharge Diagnosis Discharge Diagnosis (1) Dehydration: Code(s): E86.0 - Dehydration Status: Acute (2) Urinary tract infection: Qualifiers: Hematuria presence: without hematuria Urinary tract infection type: acute cystitis Qualified Code(s): N30.00 - Acute cystitis without hematuria Code(s): N39.0 - Urinary tract infection, site not specified Status: Acute (3) Weakness: Code(s): R53.1 - Weakness Status: Acute (4) Acute on chronic alteration in mental status: Code(s): R41.82 - Altered mental status, unspecified Status: Acute (5) Vomiting: Qualifiers: Vomiting type: unspecified Nausea presence: unspecified Qualified Code(s): R11.10 - Vomiting, unspecified Code(s): R11.10 - Vomiting, unspecified Status: Acute Plan The patient reportedly had testing for or UTI as outpatient and was started on antibiotics with nitrofurantoin. She patient only had a couple of doses of antibiotics she. reports patient has had increased weakness in started having vomiting. UA in the ER is not suggestive of UTI but cultures pending. She could have incompletely treated UTI or the patient's increased urinary incontinence and increased weakness could be due to progressive decline from her dimension dehydration. Patient has been started empiric antibiotic therapy with Rocephin while awaiting for lab results. She patient did receive IV fluid hydration of 3 L in the ER. She will continue maintenance IV fluids and re- evaluate with repeat CBC and electrolyte panel in a.m.. Patient is having episodes of emesis in has had a history of hiatal hernia and esophageal ring in the past. Will place patient on famotidine. The will continue the patient's home Seroquel but will decrease the dose back down to 50 mg at night as increased dose may also be contributing to the patient's increased weakness. And will schedule the patient's trazodone. The patient does seem to have moderate amount discomfort on palpation of her abdomen with some hyperactive bowel sounds and is slightly distended. Will send patient for CT of the abdomen and pelvis to rule out other secondary cause for vomiting and abdominal pain. De Los Santos catheter was placed in the ER. Patient did have 80% carotid stenosis and initial CT demonstrated possible subdural but repeat imaging did not support findings of subdural hematoma is likely due to motion artifact causing distortion of imaging. Patient is not pablo ving localizing neurologic deficits in acute CVA seems less likely to be causing patient's symptoms. Either way given the patient's advanced dementia and age she would not be a candidate for intervention to treat carotid stenosis or candidate for tPA. It seems much more likely that patient's symptoms are due to medication effect and/or result of UTI and dehydration. ER provider had a goals of care discussion with the patient's . He stated that he would like to talk to his daughter regarding options regarding possible senior living placement verses hospice with his daughter and then he will let us know. Care coordination consult has been placed. The patient remains a full code in the computer as code status was not clarified prior to the departure from the hospital and given that he was upset with nursing staff when they called to clarify the med rec I did not feel comfortable calling him to discuss this at this hour. Patient has been admitted as observation status. MEDICAL DECISION MAKING NARRATIVE -Spoke with the ED provider in detail regarding patient's evaluation, workup and management -Patient seen and examined at bedside -Collaborated with patient's nurse at the bedside in detail and addressed all concerns -Labs, electrolytes, radiology, investigations and test results personally reviewed and interpreted unless otherwise specified -ED/Consult/Nursing/Ancilliary notes on the chart reviewed and appreciated DS: Summary Hospital Course Reason for hospitalization: Increased weakness, vomiting Hospital Course: Per HPI: She 84-year-old female with past medical history of dementia with behaviors, chr onic urinary incontinence, hiatal hernia, esophageal ring with EGD 05/22/2025 who presented to the ER from home via EMS due to increased weakness and 1 episode of vomiting. The patient is only alert oriented to person and the fact that she is in the hospital her reported to ER staff that this is her baseline. She is unable to provide me with any other history. Not patient's reported to the ER staff that the patient's Seroquel was increased a couple of days ago. Medications were increased due to increasing behavior issues. The patient has been increasingly weak and not able to get up. She did have 1 episode of emesis which is what caused the patient's to call EMS to bring her in for evaluation. She had been started on nitrofurantoin as outpatient on the 17 of July for possible UTI. We do not have access to the patient's outpatient UA and we do not know if a culture had been obtained. But her urine in the ER was not suggestive of acute UTI. Although her urine findings today could be suggestive of a treated UTI. The patient was incontinent of urine in the ER and was dribbling constantly without any large voids. Subsequently De Los Santos catheter was placed to evaluate for possible obstruction and for accurate I&O's. The patient was started on empiric antibiotic therapy with Rocephin to treat possible incompletely treated UTI and the patient was admitted to the medical floor. After transport to the medical floor the patient had another 2 episodes of emesis. I did place or for Phenergan but patient had no further emesis after transport. When I went to evaluate the patient the patient did grimace when I was palpating her abdomen in her abdomen was somewhat distended. The patient had been incontinent of stool but is not unusual for to be incontinent of stool from time to time according to outpatient documentation. Status at Discharge Overall status at discharge: patient is not back to baseline Time Spent with Patient Time attestation: Total time spent providing and/or coordinating discharge services: 45 Exam Narrative: Weight 66.6 kg BMI 25.2 Const: Other: Mildly ill-appearing, elderly, debilitated HENMT: Other: Mucous membranes are dry, no oral pharyngeal erythema, fair dentition Eyes: Other: Pupils are equal and reactive, no scleral icterus, no conjunctival pallor Neck: Other: No JVD, no lymphadenopathy Resp: Other: Clear to auscultation bilaterally, no increased work of breathing Cardio: Other: Regular rate, regular rhythm, 2+ bilateral radial pedal pulses, 2/6 systolic murmur GI: Other: Hyperactive bowel sounds, distended, generalized tenderness to palpation, no organomegaly : Other: De Los Santos catheter in place with cloudy yellow urine Skin: Other: Generalized pallor, non jaundice, normal temperature to touch Neuro: Other: Alert oriented to person and fact that she has a Hospital, she cannot name the hospital, she does not know the year and thinks that the month is March Extrem: Other: No clubbing, cyanosis or edema, 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 strength bilateral Psych: Other: Confused, restless, impulsive DS: Data Data Completed and Pending Labs on day of discharge: Labs from last 24 hours 07/21/25 05:17 WBC 7.6 RBC 3.97 L Hgb 12.0 Hct 35.9 L MCV 90.4 MCH 30.2 MCHC 33.4 RDW 12.5 Plt Count 226 MPV 9.8 Sodium 135 L Potassium 3.2 L Chloride 104 Carbon Dioxide 26 Anion Gap 5 BUN 8 Creatinine 0.60 L Estim Creat Clear Calc 53 Estimated GFR > 60 Glucose 113 H Calcium 8.3 L Total Bilirubin 0.4 AST 40 H ALT 25 Alkaline Phosphatase 139 H Total Protein 6.3 Albumin 3.3 L Discharge Plan Discharge Attending physician on discharge: Pino Maki Oca Consulting providers: Helga Presley; Ej Meneses Discharging Clinician: Ej Meneses Anticipated Discharge Date/Time: 07/21/25 15:29 Patient Disposition: Hospice - Home Activity: as tolerated Diet: as tolerated Discharge Instructions: Discharge disposition: Home with hospice Take medications as prescribed Monitor blood pressures Take caution while standing, rising, or moving Change positions slowly taking a break between each position change If you standing feel dizzy sit back down and take a break Encouraged to continue with yearly vaccinations Return to the emergency department if you develop sudden shortness of breath, chest pain, nausea, vomiting, upset stomach or intractable diarrhea Return to the emergency department if you develop fever greater than 101.5 Follow-up with the primary care physician within 1-2 weeks Thank you for [facility] for your healthcare needs Patient Language: Monegasque Stand Alone Forms: General Discharge Information Follow-up/Referrals: Humberto Ledesma MD [Primary Care Provider, Internal Medicine] Discharge Medications: Continued cholecalciferol (vitamin D3) 100 mcg (4,000 unit) tablet 100 mcg PO DAILY pravastatin 40 mg tablet 40 mg PO DAILY Qty: 90 0RF memantine 10 mg tablet 10 mg PO BID Qty: 60 2RF trazodone 50 mg tablet 100 mg PO QHS PRN (Reason: insomnia) Qty: 180 1RF Rx Instructions: Take 2 tablets by oral route @ hs. PRN. quetiapine 25 mg tablet 25 mg PO QAM Qty: 90 0RF quetiapine 100 mg tablet 100 mg PO QHS Qty: 90 0RF Discontinued nitrofurantoin monohyd/m-cryst [Macrobid] 100 mg capsule 100 mg PO Q12H 7 Days Qty: 14 0RF Rx Instructions: must administer with a meal/food Date of admission: 07/20/25 02:14 Primary Care Provider: Humberto Ledesma Admitting Provider: Peri Saleh Attending physician on admission: Peri Saleh Condition: Stable Quality VTE Prophylaxis VTE prophylaxis: mechanical ordered (SCDs)
--- NOTE | 2025-07-21 15:46 | P.PNIM_ITS ---
Progress Note: A&P Assessment and Plan (1) Dehydration: Code(s): E86.0 - Dehydration Status: Acute (2) Urinary tract infection: Qualifiers: Hematuria presence: without hematuria Urinary tract infection type: acute cystitis Qualified Code(s): N30.00 - Acute cystitis without hematuria Code(s): N39.0 - Urinary tract infection, site not specified Status: Acute (3) Weakness: Code(s): R53.1 - Weakness Status: Acute (4) Acute on chronic alteration in mental status: Code(s): R41.82 - Altered mental status, unspecified Status: Acute (5) Vomiting: Qualifiers: Vomiting type: unspecified Nausea presence: unspecified Qualified Code(s): R11.10 - Vomiting, unspecified Code(s): R11.10 - Vomiting, unspecified Status: Acute Plan Per HPI: The patient reportedly had testing for or UTI as outpatient and was started on antibiotics with nitrofurantoin. She patient only had a couple of doses of antibiotics she. reports patient has had increased weakness in started having vomiting. UA in the ER is not suggestive of UTI but cultures pending. She could have incompletely treated UTI or the patient's increased urinary incontinence and increased weakness could be due to progressive decline from her dimension dehydration. Patient has been started empiric antibiotic therapy with Rocephin while awaiting for lab results. She patient did receive IV fluid hydration of 3 L in the ER. She will continue maintenance IV fluids and re- evaluate with repeat CBC and electrolyte panel in a.m.. Patient is having episodes of emesis in has had a history of hiatal hernia and esophageal ring in the past. Will place patient on famotidine. The will continue the patient's home Seroquel but will decrease the dose back down to 50 mg at night as increased dose may also be contributing to the patient's increased weakness. And will schedule the patient's trazodone. The patient does seem to have moderate amount discomfort on palpation of her abdomen with some hyperactive bowel sounds and is slightly distended. Will send patient for CT of the abdomen and pelvis to rule out other secondary cause for vomiting and abdominal pain. De Los Santos catheter was placed in the ER. Patient did have 80% carotid stenosis and initial CT demonstrated possible subdural but repeat imaging did not support findings of subdural hematoma is likely due to motion artifact causing distortion of imaging. Patient is not having localizing neurologic deficits in acute CVA seems less likely to be causing patient's symptoms. Either way given the patient's advanced dementia and age she would not be a candidate for intervention to treat carotid stenosis or candidate for tPA. It seems much more likely that patient's symptoms are due to medication effect and/or result of UTI and dehydration. ER provider had a goals of care discussion with the patient's . He stated that he would like to talk to his daughter regarding options regarding possible [facility] placement verses hospice with his daughter and then he will let us know. Care coordination consult has been placed. The patient remains a full code in the computer as code status was not clarified prior to the departure from the hospital and given that he was upset with nursing staff when they called to clarify the med rec I did not feel comfortable calling him to discuss this at this hour. Patient has been admitted as observation status. has decided on wanting the patient to be discharged on hospice. is POA. They will need time to set this up at home, plan for discharge home tomorrow on hospice care. Subjective Date/time seen: 07/21/25 15:46 Interval history: Patient sitting comfortably in bed at time of examination. No acute overnight changes. Accompanied by who was at bedside. Plan is for hospice. This has been established yet may will need time to set this up at home. Plan for discharge tomorrow on hospice. Review of Systems Review of Systems: Unobtainable due to patient's history of dementia. Exam Narrative: Weight 66.6 kg BMI 25.2 Const: Other: Mildly ill-appearing, elderly, debilitated HENMT: Other: Mucous membranes are dry, no oral pharyngeal erythema, fair dentition Eyes: Other: Pupils are equal and reactive, no scleral icterus, no conjunctival pallor Neck: Other: No JVD, no lymphadenopathy Resp: Other: Clear to auscultation bilaterally, no increased work of breathing Cardio: Other: Regular rate, regular rhythm, 2+ bilateral radial pedal pulses, 2/6 systolic murmur GI: Other: Hyperactive bowel sounds, distended, generalized tenderness to palpation, no organomegaly : Other: De Los Santos catheter in place with cloudy yellow urine Skin: Other: Generalized pallor, non jaundice, normal temperature to touch Neuro: Other: Alert oriented to person and fact that she has a Hospital, she cannot name the hospital, she does not know the year and thinks that the month is March Extrem: Other: No clubbing, cyanosis or edema, 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 strength bilateral Psych: Other: Confused, restless, impulsive Objective Data Vital Signs Vital Signs: Vital Signs - 24 hr 07/20/25 19:35 07/20/25 20:00 07/20/25 20:35 Temperature 97.2 F L Pulse Rate 102 H 102 H Respiratory Rate 22 H 22 H 20 Blood Pressure 143/49 H Pulse Oximetry 98 98 Oxygen Delivery Room Air 07/20/25 22:00 07/21/25 05:26 07/21/25 09:50 Temperature 97.4 F L 97.2 F L Pulse Rate 98 103 H Respiratory Rate 20 20 Blood Pressure 138/58 L 142/59 H Pulse Oximetry 96 Oxygen Delivery Room Air 07/21/25 13:47 Temperature 98.2 F Pulse Rate Respiratory Rate 12 Blood Pressure Pulse Oximetry Oxygen Delivery Intake/Output Intake/Output: Intake & Output 07/18/25 07/19/25 07/20/25 07/21/25 23:59 23:59 23:59 23:59 Intake Total 1999 2874.6 1072.9 Output Total 400 2900 2950 Balance 1600 -25.4 -1877.1 Meds/Results Medications: Active Medications Generic Name Dose Route Start Last Admin Trade Name Freq PRN Reason Stop Dose Admin Acetaminophen 650 mg 07/20/25 09:18 Acetaminophen 325 Mg Tablet PO Q6H PRN Mild Pain (1-3) or Fever Famotidine 20 mg 07/20/25 09:00 07/21/25 09:47 Famotidine 20 Mg/2 Ml Vial IV PUSH 20 mg Q12HR VAL Administration Sodium Chloride 1,000 mls @ 125 mls/hr 07/20/25 02:15 07/21/25 05:20 Normal Saline Iv IV CONT 125 mls/hr .Q8H VAL Administration Ceftriaxone Sodium 1 gm/ 50 mls @ 100 mls/hr 07/20/25 21:00 07/20/25 21:33 Sodium Chloride IVPB 100 mls/hr Q24H VAL Administration Memantine 10 mg 07/20/25 09:00 07/21/25 09:47 Memantine 10 Mg Tablet PO 10 mg Q12HR VAL Administration Metronidazole 500 mg 07/21/25 00:00 07/21/25 12:29 Metronidazole 500 Mg Tablet PO 500 mg Q6HR VAL Administration Ondansetron HCl 4 mg 07/20/25 09:10 07/20/25 10:13 Ondansetron Inj 4 Mg/2 Ml Vial IV PUSH 4 mg Q4H PRN Administration Nausea And Vomiting Quetiapine Fumarate 25 mg 07/20/25 09:00 07/21/25 09:47 Quetiapine Fumarate 25 Mg Tablet PO 25 mg QAM VAL Administration Quetiapine Fumarate 50 mg 07/20/25 21:00 07/20/25 21:34 Quetiapine Fumarate 25 Mg Tablet PO 50 mg QHS VAL Administration Risperidone 1 mg 07/20/25 09:20 07/21/25 09:47 Risperidone 1 Mg Tablet PO 1 mg Q12HR VAL Administration Trazodone HCl 100 mg 07/20/25 21:00 07/20/25 21:34 Trazodone Hcl 50 Mg Tablet PO 100 mg QHS VAL Administration Vitamin D 100 mcg 07/20/25 09:00 07/21/25 09:47 Cholecalciferol (Vitamin D3) 25 Mcg (1,000 Units) Tablet PO 100 mcg DAILY VAL Administration Radiology Results: ITS Impressions Head CT 07/19/25 19:44 Impression: 1. Limited study. Trace focus of subarachnoid hemorrhage versus subdural suspected adjacent to the right temporal lobe. Follow-up is recommended to assess. 2. Probable underlying normal pressure hydrocephalus. Chest X-Ray 07/19/25 19:47 Impression: No acute cardiopulmonary abnormality. Head/Neck CTA 07/20/25 08:14 IMPRESSION: 1. Moderate nonspecific cerebral white matter disease, which likely represents chronic small vessel ischemic disease. 2. No aneurysm or significant intracranial arterial stenosis. 3. 0% stenosis of the proximal right internal carotid artery relative to normal distal artery lumen diameter (NASCET criteria). 4. 51% stenosis of the proximal left internal carotid artery relative to normal distal artery lumen diameter. Abdomen/Pelvis CT 07/20/25 16:09 IMPRESSION: 1. Wall thickening of the descending and sigmoid colon, consistent with colitis. 2. Small sliding hiatal hernia. Labs Labs: Laboratory Results - last 24 hr 07/21/25 05:17 WBC 7.6 RBC 3.97 L Hgb 12.0 Hct 35.9 L MCV 90.4 MCH 30.2 MCHC 33.4 RDW 12.5 Plt Count 226 MPV 9.8 Sodium 135 L Potassium 3.2 L Chloride 104 Carbon Dioxide 26 Anion Gap 5 BUN 8 Creatinine 0.60 L Estim Creat Clear Calc 53 Estimated GFR > 60 Glucose 113 H Calcium 8.3 L Total Bilirubin 0.4 AST 40 H ALT 25 Alkaline Phosphatase 139 H Total Protein 6.3 Albumin 3.3 L Quality VTE Prophylaxis VTE prophylaxis: mechanical ordered (SCDs)
[2025-07-21 20:00] VITALS: PULSE 110; RESP 18; O2SAT 97
[2025-07-21] MEDS: cefTRIAXone 1 GM in SODIUM CHLORIDE 0.9% IV 50 ML 100 ML IVPB (21:04)
[2025-07-21 22:00] VITALS: BP 125/54; PULSE 110; RESP 18; TEMP 36.4; O2SAT 97
[2025-07-22] MEDS: SODIUM CHLORIDE 0.9% IV 1,000 ML 125 ML IV CONT (05:17)
[2025-07-22 05:57] LABS: Hematocrit 38.4 % (37.0-47.0); Hemoglobin 12.0 g/dL (12.0-15.0); Mean Corpuscular HGB Conc 31.3 g/dl (32-36); Mean Corpuscular Hemoglobin 29.9 pg (26-34); Mean Corpuscular Volume 95.5 fl (80-100); Platelet Count Result 214 k/mm3 (150-375); Red Blood Count 4.02 M/mm3 (4.2-5.4); White Blood Count 8.9 K/mm3 (4.5-10.0)
[2025-07-22 06:00] VITALS: BP 141/62; PULSE 102; RESP 18; TEMP 36.1; O2SAT 98
[2025-07-22 06:53] LABS: Alanine Aminotransferase 22 U/L (6-35); Albumin Level 3.3 g/dL (3.5-5.1); Alkaline Phosphatase 129 U/L (38-126); Anion Gap 6 mmol/L (4-12); Aspartate Amino Transferase 28 U/L (14-36); Bilirubin,Total 0.4 mg/dL (0.2-1.3); Blood Urea Nitrogen 9 mg/dL (7-17); Calcium 8.5 mg/dL (8.4-10.2); Carbon Dioxide 24 mmol/L (22-30); Chloride 103 mmol/L (98-107); Estimated CRCL calculation 52 ml/min; Estimated Glomerular Filt Rate > 60; Glucose 117 mg/dL (65-110); Potassium 3.8 mmol/L (3.4-5.0); Sodium 133 mmol/L (137-145); Total Protein 6.4 g/dL (6.3-8.2)
[2025-07-22] MEDS: CHOLECALCIFEROL (VITAMIN D3) 25 MCG (1,000 UNITS) TABLET 100 MCG PO (08:58)
[2025-07-22] MEDS: FAMOTIDINE 20 MG/2 ML VIAL IV PUSH (08:58)
[2025-07-22] MEDS: MEMANTINE 10 MG TABLET PO (08:58)
--- NOTE | 2025-07-22 11:19 | P.DS_ITS ---
DS: Admitting Diagnosis Discharge Date 07/22/2025 Admitting Diagnosis Failure to thrive, UTI DS: Discharge Diagnosis Discharge Diagnosis (1) Dehydration: Code(s): E86.0 - Dehydration Status: Acute (2) Urinary tract infection: Qualifiers: Hematuria presence: without hematuria Urinary tract infection type: acute cystitis Qualified Code(s): N30.00 - Acute cystitis without hematuria Code(s): N39.0 - Urinary tract infection, site not specified Status: Acute (3) Weakness: Code(s): R53.1 - Weakness Status: Acute (4) Acute on chronic alteration in mental status: Code(s): R41.82 - Altered mental status, unspecified Status: Acute (5) Vomiting: Qualifiers: Nausea presence: unspecified Vomiting type: unspecified Qualified Code(s): R11.10 - Vomiting, unspecified Code(s): R11.10 - Vomiting, unspecified Status: Acute Plan Per HPI: The patient reportedly had testing for or UTI as outpatient and was started on antibiotics with nitrofurantoin. She patient only had a couple of doses of antibiotics she. reports patient has had increased weakness in started having vomiting. UA in the ER is not suggestive of UTI but cultures pending. She could have incompletely treated UTI or the patient's increased urinary incontinence and increased weakness could be due to progressive decline from her dimension dehydration. Patient has been started empiric antibiotic therapy with Rocephin while awaiting for lab results. She patient did receive IV fluid hydration of 3 L in the ER. She will continue maintenance IV fluids and re- evaluate with repeat CBC and electrolyte panel in a.m.. Patient is having episodes of emesis in has had a history of hiatal hernia and esophageal ring in the past. Will place patient on famotidine. The will continue the patient's home Seroquel but will decrease the dose back down to 50 mg at night as increased dose may also be contributing to the patient's increased weakness. And will schedule the patient's trazodone. The patient does seem to have moderate amount discomfort on palpation of her abdomen with some hyperactive bowel sounds and is slightly distended. Will send patient for CT of the abdomen and pelvis to rule out other secondary cause for vomiting and abdominal pain. De Los Santos catheter was placed in the ER. Patient did have 80% carotid stenosis and initial CT demonstrated possible subdural but repeat imaging did not support findings of subdural hematoma is likely due to motion artifact causing distortion of imaging. Patient is not having localizing neurologic deficits in acute CVA seems less likely to be causing patient's symptoms. Either way given the patient's advanced dementia and age she would not be a candidate for intervention to treat carotid stenosis or candidate for tPA. It seems much more likely that patient's symptoms are due to medication effect and/or result of UTI and dehydration. ER provider had a go als of care discussion with the patient's . He stated that he would like to talk to his daughter regarding options regarding possible penitentiary placement verses hospice with his daughter and then he will let us know. Care coordination consult has been placed. The patient remains a full code in the computer as code status was not clarified prior to the departure from the hospital and given that he was upset with nursing staff when they called to clarify the med rec I did not feel comfortable calling him to discuss this at this hour. Patient has been admitted as observation status. has decided on wanting the patient to be discharged on hospice. is POA. They will need time to set this up at home, plan for discharge home tomorrow on hospice care. DS: Summary Hospital Course Reason for hospitalization: Increased weakness, vomiting Hospital Course: Per H&P: The patient reportedly had testing for or UTI as outpatient and was started on antibiotics with nitrofurantoin. She patient only had a couple of doses of antibiotics she. reports patient has had increased weakness in started having vomiting. UA in the ER is not suggestive of UTI but cultures pending. She could have incompletely treated UTI or the patient's increased urinary incontinence and increased weakness could be due to progressive decline from her dimension dehydration. Patient has been started empiric antibiotic therapy with Rocephin while awaiting for lab results. She patient did receive IV fluid hydration of 3 L in the ER. She will continue maintenance IV fluids and re- evaluate with repeat CBC and electrolyte panel in a.m.. Patient is having episodes of emesis in has had a history of hiatal hernia and esophageal ring in the past. Will place patient on famotidine. The will continue the patient's home Seroquel but will decrease the dose back down to 50 mg at night as increased dose may also be contributing to the patient's increased weakness. And will schedule the patient's trazodone. The patient does seem to have moderate amount discomfort on palpation of her abdomen with some hyperactive bowel sounds and is slightly distended. Will send patient for CT of the abdomen and pelvis to rule out other secondary cause for vomiting and abdominal pain. De Los Santos catheter was placed in the ER. Patient did have 80% carotid stenosis and initial CT demonstrated possible subdural but repeat imaging did not support findings of subdural hematoma is likely due to motion artifact causing distortion of imaging. Patient is not having localizing neurologic deficits in acute CVA seems less likely to be c ausing patient's symptoms. Either way given the patient's advanced dementia and age she would not be a candidate for intervention to treat carotid stenosis or candidate for tPA. It seems much more likely that patient's symptoms are due to medication effect and/or result of UTI and dehydration. ER provider had a goals of care discussion with the patient's . He stated that he would like to talk to his daughter regarding options regarding possible penitentiary placement verses hospice with his daughter and then he will let us know. Care coordination consult has been placed. The patient remains a full code in the computer as code status was not clarified prior to the departure from the hospital and given that he was upset with nursing staff when they called to clarify the med rec I did not feel comfortable calling him to discuss this at this hour. Per Cross cover on 07/20 @ 12:10: Patient is an 84-year-old female admitted for increased generalized weakness likely secondary to UTI, vomiting episode increased confusion and agitation. Per the medical chart patient was brought by EMS after her contacted them due to an episode vomiting in concerns for her increased confusion. Patient has been seen and assessed by previous provider on my follow-up assessment patient was comfortable and resting no agitation noted at this time however did have sitter at bedside. Spouse had returned home requesting later contact but did speak with care coordination regarding discharge planning needs at which time they have discussed returning home on hospice with [facility] care. Patient alert and oriented to self was able to respond to some commands requesting when her spouse was to return. At this patient denied any pain just reported feeling fatigued and tired. Patient was resumed on her home medications continued her Namenda for her dementia as well as Seroquel which was decreased to 50 mg at night and added Risperdal 1 mg b.i.d. for agitation. Vital stable on room air, labs reviewed and unremarkable will continue with IV Rocephin due to previous UTI reported unsure if antibiotic therapy was completed pending urine cultures. Imaging findings were discussed with patient's spouse in the emergency department and per notes they did not want any intervention requesting hospice care. Discussed with the at length on 07/21 regarding discharge on hospice vs palliative care. is POA. Patient states that he would prefer to go with discharge on hospice at this time. This has been set up on 07/22 and patient is stable for discharge at this time. Will give additional doses of Augmentin for UTI. Plan for discharge on hospice at this time. Status at Discharge Functional status at discharge: bed bound Overall status at discharge: patient is not back to baseline Time Spent with Patient Time attestation: Total time spent providing and/or coordinating discharge services: 21 Exam Narrative: Weight 66.6 kg BMI 25.2 Const: Other: Mildly ill-appearing, elderly, debilitated HENMT: Other: Mucous membranes are dry, no oral pharyngeal erythema, fair dentition Eyes: Other: Pupils are equal and reactive, no scleral icterus, no conjunctival pallor Neck: Other: No JVD, no lymphadenopathy Resp: Other: Clear to auscultation bilaterally, no increased work of breathing Cardio: Other: Regular rate, regular rhythm, 2+ bilateral radial pedal pulses, 2/6 systolic murmur GI: Other: Hyperactive bowel sounds, distended, generalized tenderness to palpation, no organomegaly : Other: De Los Santos catheter in place with cloudy yellow urine Skin: Other: Generalized pallor, non jaundice, normal temperature to touch Neuro: Other: Alert oriented to person and fact that she has a Hospital, she cannot name the hospital, she does not know the year and thinks that the month is March Extrem: Other: No clubbing, cyanosis or edema, 4/5 finisher screwdown strength bilateral Psych: Other: Confused, restless, impulsive DS: Data Data Completed and Pending Labs on day of discharge: Labs from last 24 hours 07/22/25 05:37 WBC 8.9 RBC 4.02 L Hgb 12.0 Hct 38.4 MCV 95.5 D MCH 29.9 MCHC 31.3 L RDW 12.7 Plt Count 214 MPV 9.7 Sodium 133 L Potassium 3.8 Chloride 103 Carbon Dioxide 24 Anion Gap 6 BUN 9 Creatinine 0.62 L Estim Creat Clear Calc 52 Estimated GFR > 60 Glucose 117 H Calcium 8.5 Total Bilirubin 0.4 AST 28 ALT 22 Alkaline Phosphatase 129 H Total Protein 6.4 Albumin 3.3 L Discharge Plan Discharge Attending physician on discharge: Pino Maki Oca Consulting providers: Helga Presley; Ej Meneses Discharging Clinician: Ej Meneses Anticipated Discharge Date/Time: 07/22/25 11:19 Patient Disposition: Hospice - Home Activity: as tolerated Diet: as tolerated Discharge Instructions: Discharge disposition: Home with hospice Take medications as prescribed. You will be prescribed Augmentin for 5 days for your urinary tract infection. Monitor blood pressures Take caution while standing, rising, or moving Change positions slowly taking a break between each position change If you standing feel dizzy sit back down and take a break Encouraged to continue with yearly vaccinations Return to the emergency department if you develop sudden shortness of breath, chest pain, nausea, vomiting, upset stomach or intractable diarrhea Return to the emergency department if you develop fever greater than 101.5 Follow-up with the primary care physician within 1-2 weeks Thank you for [facility] for your healthcare needs Patient Language: Swedish Stand Alone Forms: General Discharge Information Follow-up/Referrals: Humberto Ledesma MD [Primary Care Provider, Internal Medicine] Discharge Medications: New amoxicillin-pot clavulanate 875-125 mg tablet 1 tablet PO Q12H 5 Days Qty: 10 0RF Continued cholecalciferol (vitamin D3) 100 mcg (4,000 unit) tablet 100 mcg PO DAILY pravastatin 40 mg tablet 40 mg PO DAILY Qty: 90 0RF memantine 10 mg tablet 10 mg PO BID Qty: 60 2RF trazodone 50 mg tablet 100 mg PO QHS PRN (Reason: insomnia) Qty: 180 1RF Rx Instructions: Take 2 tablets by oral route @ hs. PRN. quetiapine 25 mg tablet 25 mg PO QAM Qty: 90 0RF quetiapine 100 mg tablet 100 mg PO QHS Qty: 90 0RF Discontinued nitrofurantoin monohyd/m-cryst [Macrobid] 100 mg capsule 100 mg PO Q12H 7 Days Qty: 14 0RF Rx Instructions: must administer with a meal/food Date of admission: 07/20/25 02:14 Primary Care Provider: Humberto Ledesma Admitting Provider: Peri Saleh Attending physician on admission: Peri Saleh Condition: Stable Quality VTE Prophylaxis VTE prophylaxis: mechanical ordered (SCDs)
== END 2025-07-22 13:20 | disposition hospice, home (50) ==
LOC: ANHED 07-20 02:13 → ANH3MED 07-20 08:17
PROVIDERS: Nurse Practitioner Family; Admitting Provider Internal Medicine; Emergency Provider Registered Nurse; PCP Internal Medicine; Visit Provider Student in an Organized Health Care Education/Training Program
DX: E86.0 Dehydration (principal); N39.0 Urinary tract infection, site not specified; R11.10 Vomiting, unspecified; R53.1 Weakness; F03.911 Unspecified dementia, unspecified severity, with agitation; M81.0 Age-related osteoporosis without current pathological fracture; K21.9 Gastro-esophageal reflux disease without esophagitis; M19.90 Unspecified osteoarthritis, unspecified site; Z20.822 Contact with and (suspected) exposure to COVID-19; Z79.899 Other long term (current) drug therapy
CPT/HCPCS: 36415; 70450; 70496; 70498; 71045; 74177; 80053; 81001; 83605; 85025; 85027; 85610; 85730; 86140; 87040; 87637; 93005; 96361; 96365; 96366; 96372; 96375; 96376; 99285; A9270; G0378; J0696; J1630; J2359; J2405; J3360; J7030; Q9967